=== PATIENT | female | born 1960 | race African-American/Black ===

== ENCOUNTER 2020-12-31 17:21 | Observation (INO) | payer OTHER ==
[2020-12-31] MEDS ORDERED: D50W 25 GM/50 ML SYRINGE IV ONE (17:43)
--- NOTE | 2020-12-31 19:05 | EDPHYS ---
Physician Documentation [facility] Name: Nedra Luis Age: 60 yrs Sex: Female : 1960 Arrival Date: 12/31/2020 Time: 17:30 Bed 3 Private MD: ED Physician Tristin Perera HPI: 12/31 18:28 This 60 yrs old Black Female presents to ER via EMS with complaints of Low Blood Sugar. ma2 18:28 Onset: The symptoms/episode began/occurred gradually, 3 hour(s) ago. Associated signs ma2 and symptoms: Pertinent negatives: anorexia, decreased urine output, diarrhea, hair loss, nausea. Current symptoms: In the emergency department the patient's symptoms are unchanged from the initial presentation. The patient has not experienced similar symptoms in the past. Patient is insulin-dependent diabetes, she is on insulin takes Humalog insulin and Tresiba long-acting insulin, she had an episode of confusion where her family called EMS at 2 PM and EMS arrived blood sugar was low to give her glucagon and recommended transfer to an ER, patient declined. After 2 hours patient had another episode of hypoglycemia where she became confused and EMS were recalled to the house and they found her blood sugar to be low as well. At this point patient is ANO x4 blood sugar is within normal limits she is back to normal. Historical: - Allergies: 18:49 Hydrocortisone; sv - PMHx: 17:38 Diabetes mellitus; sv 18:49 Hypertensive disorder; sv - Immunization history:: Client reports receiving the 1st dose of the Covid vaccine. - Social history:: Patient/guardian denies using alcohol, street drugs, The patient lives with family, Smoking status: Patient denies any tobacco usage or history of. - Family history:: not pertinent. ROS: 18:28 Constitutional: Negative for fever, chills, and weight loss. ma2 18:28 All other systems are negative. Exam: 18:28 Constitutional: This is a well developed, well nourished patient who is awake, alert, ma2 and in no acute distress. Head/Face: Normocephalic, atraumatic. Eyes: Pupils equal round and reactive to light, extra-ocular motions intact. Lids and lashes normal. Conjunctiva and sclera are non-icteric and not injected. Cornea within normal limits. Periorbital areas with no swelling, redness, or edema. ENT: Nares patent. No nasal discharge, no septal abnormalities noted. Tympanic membranes are normal and external auditory canals are clear. Oropharynx with no redness, swelling, or masses, exudates, or evidence of obstruction, uvula midline. Mucous membranes moist. Neck: Trachea midline, no thyromegaly or masses palpated, and no cervical lymphadenopathy. Supple, full range of motion without nuchal rigidity, or vertebral point tenderness. No Meningismus. Chest/axilla: Normal chest wall appearance and motion. Nontender with no deformity. No lesions are appreciated. Cardiovascular: Regular rate and rhythm with a normal S1 and S2. No gallops, murmurs, or rubs. Normal PMI, no JVD. No pulse deficits. Respiratory: Lungs have equal breath sounds bilaterally, clear to auscultation and percussion. No rales, rhonchi or wheezes noted. No increased work of breathing, no retractions or nasal flaring. Abdomen/GI: Soft, non-tender, with normal bowel sounds. No distension or tympany. No guarding or rebound. No evidence of tenderness throughout. Skin: Warm, dry with normal turgor. Normal color with no rashes, no lesions, and no evidence of cellulitis. MS/ Extremity: Pulses equal, no cyanosis. Neurovascular intact. Full, normal range of motion. Neuro: Awake and alert, GCS 15, oriented to person, place, time, and situation. Cranial nerves II-XII grossly intact. Motor strength 5/5 in all extremities. Sensory grossly intact. Cerebellar exam normal. Normal gait. Vital Signs: 17:35 BP 155 / 77; Pulse 61; Resp 16; Temp 98; Pulse Ox 100% ; Pain 0/10; sv 19:30 BP 141 / 78; Pulse 68; Resp 17; Pulse Ox 100% on R/A; em 22:52 BP 134 / 62; Pulse 70; Resp 16; Pulse Ox 100% on R/A; em 01/01 00:00 BP 112 / 69; Pulse 71; Resp 14; Pulse Ox 100% on R/A; Pain 0/10; em MDM: 12/31 18:28 Differential diagnosis: DKA, hyperglycemia, hypoglycemic episode. Data reviewed: vital ma2 signs, nurses notes. 19:03 Counseling: I had a detailed discussion with the patient and/or guardian regarding: the [facility] historical points, exam findings, and any diagnostic results supporting the discharge/admit diagnosis, the presence of at least one elevated blood pressure reading (>120/80) during this emergency department visit, the need for further work-up and treatment in the hospital. Response to treatment: the patient's symptoms have markedly improved after treatment. 19:04 Patient medically screened. [facility] 12/31 17:37 Order name: Basic Metabolic Panel [facility] 12/31 17:37 Order name: CBC with Diff [facility] 12/31 17:37 Order name: Hepatic Function [facility] 12/31 17:37 Order name: Lipase [facility] 12/31 18:56 Order name: Glucose, Ancillary Testing; Complete Time: 19:03 [facility] 12/31 19:04 Order name: glucometer results - FOR PT WITH NO ID 12/31 19:33 Order name: CBC Smear Scan [facility] 12/31 19:42 Order name: Glucose, Ancillary Testing [facility] 12/31 21:38 Order name: Glucose, Ancillary Testing [facility] 12/31 23:07 Order name: Glucose, Ancillary Testing [facility] 12/31 23:19 Order name: COVID-19 : Document "Date of Symptom Onset" if Symptomatic. em 12/31 23:40 Order name: CORONAVIRUS [facility] 01/01 00:55 Order name: SARS-COV-2 RT PCR [facility] 01/01 01:17 Order name: Glucose, Ancillary Testing [facility] 12/31 17:37 Order name: IV Saline Lock; Complete Time: 17:38 [facility] 12/31 17:37 Order name: Labs collected and sent; Complete Time: 17:38 [facility] 12/31 17:37 Order name: Blood Glucose Level; Complete Time: 17:38 [facility] 12/31 17:37 Order name: Diet Regular; Complete Time: 17:38 [facility] Administered Medications: No medications were administered Disposition Summary: 12/31/20 19:04 Hospitalization Ordered Hospitalization Status: Observation ma2 Provider: Hieu Hoffmann Location: Telemetry/MedSurg (observation) ma2 Condition: Stable ma2 Problem: new ma2 Symptoms: are unchanged ma2 Bed/Room Type: Standard [facility] Room Assignment: 206(12/31/20 22:58) cg Diagnosis - Other hypoglycemia ma2 Forms: - Medication Reconciliation Form de2 - SBAR form de2 Signatures: Dispatcher [employer] Lindsay Coburn RN RN Alyson Sparks RN RN cg Alzahri, Mohammad, MD MD [facility] Corrections: (The following items were deleted from the chart) 22:58 19:04 deKenisha
--- NOTE | 2020-12-31 19:05 | ER ---
Nurse's Notes [facility] Name: Nerda Luis Age: 60 yrs Sex: Female : 1960 Arrival Date: 12/31/2020 Time: 17:30 Bed 3 Private MD: Diagnosis: Other hypoglycemia Presentation: 12/31 17:35 Chief complaint: EMS states: 2nd call out for this pt for hypoglycemia. Initial call sv was BS reading LOW, glucagon given and she felt better. They got a refusal at that time. Next call out was for BS reading LOW, glucagon 1gm given, 22G R wrist started and D10 500 mls given as well. Pt stated she thinks she took too much of her Humalog insulin. Coronavirus screen: Client denies travel out of the [place] in the last 14 days. At this time, the client does not indicate any symptoms associated with coronavirus-19. Ebola Screen: No symptoms or risks identified at this time. Initial Sepsis Screen: Does the patient meet any 2 criteria? No. Patient's initial sepsis screen is negative. Does the patient have a suspected source of infection? No. Patient's initial sepsis screen is negative. Risk Assessment: Do you want to hurt yourself or someone else? Patient reports no desire to harm self or others. Onset of symptoms was December 31, 2020. 17:35 Method Of Arrival: EMS: [facility] sv 17:35 Acuity: EDEL 3 sv Triage Assessment: 17:35 General: Appears in no apparent distress. comfortable, well developed, Behavior is sv calm, cooperative, appropriate for age. Pain: Denies pain. Neuro: Level of Consciousness is awake, alert, obeys commands, Oriented to person, place, time, situation, Moves all extremities. Full function Speech is normal. Cardiovascular: Patient's skin is warm and dry. Pulses are palpable in right radial artery and left radial artery. Respiratory: Respiratory effort is even, unlabored, Respiratory pattern is regular, symmetrical. Derm: Skin is normal. Historical: - Allergies: 18:49 Hydrocortisone; sv - PMHx: 17:38 Diabetes mellitus; sv 18:49 Hypertensive disorder; sv - Immunization history:: Client reports receiving the 1st dose of the Covid vaccine. - Social history:: Patient/guardian denies using alcohol, street drugs, The patient lives with family, Smoking status: Patient denies any tobacco usage or history of. - Family history:: not pertinent. Screenin:38 Abuse screen: Denies threats or abuse. Denies injuries from another. Nutritional sv screening: No deficits noted. Tuberculosis screening: No symptoms or risk factors identified. Fall Risk None identified. Assessment: 18:25 Reassessment: Pt given food tray. Pt not very fond of the food. Pt's daughter stated sv that she would go get her something to eat. 19:30 General: Appears in no apparent distress. comfortable, Behavior is calm, cooperative, em appropriate for age. Pain: Denies pain. Neuro: Level of Consciousness is awake, alert, obeys commands, Oriented to person, place, time, situation, Appropriate for age. Cardiovascular: Capillary refill < 3 seconds Patient's skin is warm and dry. Respiratory: Airway is patent Respiratory effort is even, unlabored, Respiratory pattern is regular, symmetrical. GI: Patient currently denies nausea, vomiting. Derm: Skin is intact, is healthy with good turgor, Skin is pink, warm \T\ dry. Musculoskeletal: Capillary refill < 3 seconds, Range of motion: intact in all extremities. 19:35 Reassessment: juice and sandwich given, pt reports she is not really hungry, instructed em pt to eat food due to hypoglycemia. 21:30 Reassessment: Patient appears in no apparent distress at this time. Patient and/or em family updated on plan of care and expected duration. Pain level reassessed. Patient is alert, oriented x 3, equal unlabored respirations, skin warm/dry/pink. 23:00 Reassessment: Patient appears in no apparent distress at this time. Patient and/or em family updated on plan of care and expected duration. Pain level reassessed. Patient is alert, oriented x 3, equal unlabored respirations, skin warm/dry/pink. Vital Signs: 17:35 BP 155 / 77; Pulse 61; Resp 16; Temp 98; Pulse Ox 100% ; Pain 0/10; sv 19:30 BP 141 / 78; Pulse 68; Resp 17; Pulse Ox 100% on R/A; em 22:52 BP 134 / 62; Pulse 70; Resp 16; Pulse Ox 100% on R/A; em 01/01 00:00 BP 112 / 69; Pulse 71; Resp 14; Pulse Ox 100% on R/A; Pain 0/10; em ED Course: 12/31 17:30 Patient arrived in ED. iw 17:35 Lindsay Estevez RN is Primary Nurse. sv 17:36 Tristin Perera MD is Attending Physician. ma2 17:37 Triage completed. sv 17:38 Arm band placed on. sv 17:38 Patient has correct armband on for positive identification. Bed in low position. Call sv light in reach. court recording monitor on. Pulse ox on. NIBP on. Door closed. Warm blanket given. Head of bed elevated. 17:38 Maintain EMS IV. Dressing intact. Site clean \T\ dry. Gauge \T\ site: 22G R hand. sv 18:54 Lab(s) recollected, by me, sent to lab. [facility] 19:04 Hieu Hoffmann MD is Hospitalizing Provider. [facility] 19:05 Primary Nurse role handed off by iLndsay Estevez RN 19:05 Report given to Fili BRICENO and Jared BRICENO. 19:13 Jared Dodge RN is Primary Nurse. em 01/01 01:06 No provider procedures requiring assistance completed. Patient admitted, IV remains in em place. Administered Medications: No medications were administered Outcome: 12/31 19:04 Decision to Hospitalize by Provider. [facility] 01/01 01:12 Admitted to Med/surg accompanied by tech, via wheelchair, room 206, with chart, Report em called to KAITY Horner Condition: improved Instructed on the need for admit, Demonstrated understanding of instructions. 01:22 Patient left the ED. em Signatures: Lindsay Estevez RN RN Jared Dodge RN RN Kala Knight RN RN Blanca Johnson [facility] Tristin Perera MD MD [facility] Corrections: (The following items were deleted from the chart) 12/31 19:01 17:35 Chief complaint: EMS states: 2nd call out for this pt for hypoglycemia. Initial sv call was BS reading LOW, glucagon given and she felt better. They got a refusal at that time. Next call out was for BS reading LOW, glucagon 1gm given, 22G R wrist started and D10 500 mls given as well. sv
[2020-12-31 19:09] LABS: Hematocrit 39.4 % (36.0-45.0); MPV 9.6 fL (7.6-11.3); RBC Red Blood Cell Count 4.09 M/uL (3.86-4.86)
[2020-12-31 19:10] LABS: Absolute Lymphocytes (CBC) 0.9 K/uL (0.7-4.9); Basophils % 0.6 % (0-1.3); Lymphocytes % 8.2 % (15.3-44.8)
[2020-12-31 19:22] LABS: ALT/SGPT 31 U/L (12-78); AST/SGOT 26 U/L (15-37); Albumin 3.2 g/dL (3.4-5.0); Alkaline Phosphatase 100 U/L (45-117); BUN Blood Urea Nitrogen 20 mg/dL (7-18); Bicarbonate 19 mmol/L (21-32); Bilirubin Direct < 0.1 mg/dL (0-0.2); Bilirubin Total 0.2 mg/dL (0.2-1.0); Glucose Level 78 mg/dL (74-106); Lipase 37 U/L (73-393); Potassium 3.8 mmol/L (3.5-5.1); Protein, Total 7.6 g/dL (6.4-8.2); Sodium Level 145 mmol/L (136-145)
--- NOTE | 2020-12-31 19:31 | P.HP ---
Certification for Inpatient Patient admitted to: Observation With expected LOS: <2 Midnights Patient will require the following post-hospital care: None Practitioner: I am a practitioner with admitting privileges, knowledge of patient current condition, hospital course, and medical plan of care. Services: Services provided to patient in accordance with Admission requirements found in Title 42 Section 412.3 of the Code of Federal Regulations Patient History Date of Service: 12/31/20 Primary Care Provider: Lindsay Uribe Reason for admission: Hypoglycemia History of Present Illness: 60-year-old -[place] female with history of diabetes type 2, hypertension presents to the emergency department for hypoglycemia. Patient reports that she takes Tresiba 45 units daily as well as Humalog 10 units twice daily at home, patient accidentally gave herself 45 units of Humalog this afternoon, has been hypoglycemic twice already at home requiring EMS evaluation. Upon arrival to the emergency department patient's blood sugar was around 100, recheck around 82. Patient is tolerating diet at this time, ED provider persist admit under observation for hypoglycemia. - Past Medical/Surgical History Diabetic: Yes -: Diabetes mellitus type 2 -: Hypertension -: Left toe amputation Psychosocial/ Personal History: Unemployed, lives with boyfriend - Family History Brother -: Diabetes Sister -: Diabetes - Social History Smoking Status: Never smoker Alcohol use: No CD- Drugs: No Caffeine use: Yes Place of Residence: Home Review of Systems 10-point ROS is otherwise unremarkable General: Weakness, Malaise Physical Examination - Physical Exam General: Alert, In no apparent distress, Oriented x3 HEENT: Atraumatic, PERRLA, Mucous membr. moist/pink, EOMI, Sclerae nonicteric Neck: Supple, 2+ carotid pulse no bruit, No LAD, Without JVD or thyroid abnormality Respiratory: Clear to auscultation bilaterally, Normal air movement Cardiovascular: Regular rate/rhythm, Normal S1 S2 Gastrointestinal: Normal bowel sounds, No tenderness Musculoskeletal: No tenderness Integumentary: No rashes Neurological: Normal gait, Normal speech, Normal strength at 5/5 x4 extr, Normal tone, Normal affect Lymphatics: No axilla or inguinal lymphadenopathy - Studies Laboratory Data (last 24 hrs) 12/31/20 18:54: WBC 11.40 H, Hgb 12.7, Hct 39.4, Plt Count 231 12/31/20 18:54: Sodium 145, Potassium 3.8, BUN 20 H, Creatinine 0.86, Glucose 78, Total Bilirubin 0.2, AST 26, ALT 31, Alkaline Phosphatase 100, Lipase 37 L Assessment and Plan - Plan Assessment: Hypoglycemia secondary to accidental insulin overdose with underlying diabetes mellitus type 2 Hypertension Plan: Hypoglycemia secondary to accidental insulin overdose with underlying diabetes mellitus type 2: Continue with hourly Accu-Cheks over the course the next few hours to monitor blood glucose level closely, if blood sugar is stable will change to a [facility] Accu-Cheks. Patient tolerating diet at this time, likely discharge tomorrow morning if sugars remain stable. Hypertension: Continue medications, adjust as necessary DVT PPX: Lovenox Code status: Full Discharge Plan: Home Plan to discharge in: 24 Hours - Advance Directives Does patient have a Living Will: No Does patient have a Durable POA for Healthcare: No - Code Status/Comfort Care Code Status Assessed: Yes (Full code) Critical Care: No Time Spent Managing Pts Care (In Minutes): 55
[2020-12-31 19:33] LABS: Blood Morphology Comment NOT SEEN (NOT SEEN); Platelet Estimate ADEQ; White Blood Cell Scan OK (OK)
[2021-01-01] MEDS ORDERED: ACETAMINOPHEN 500 MG TAB PO PRN (01:19)
[2021-01-01] MEDS ORDERED: GLUCAGON 1 MG/VIAL IV PRN (01:19)
[2021-01-01] MEDS ORDERED: D50W 25 GM/50 ML SYRINGE IV PRN (01:19)
[2021-01-01] MEDS ORDERED: ONDANSETRON 4 MG/2 ML VIAL IV PRN (01:19)
[2021-01-01 01:41] VITALS: O2SAT 100
[2021-01-01 02:12] VITALS: BMI 31.2
[2021-01-01] MEDS: INSULIN -REGULAR HUMAN 50 UNIT/0.5 ML ML SQ SCH ×3 (03:00→12:18)
[2021-01-01 06:05] LABS: Basophils % 0.4 % (0-1.3); Hematocrit 32.9 % (36.0-45.0); Lymphocytes % 13.8 % (15.3-44.8); MPV 10.4 fL (7.6-11.3); RBC Red Blood Cell Count 3.41 M/uL (3.86-4.86)
[2021-01-01 06:16] LABS: Bilirubin Total 0.2 mg/dL (0.2-1.0); Magnesium 2.4 mg/dL (1.8-2.4); Protein, Total 6.6 g/dL (6.4-8.2)
[2021-01-01] MEDS ORDERED: ENOXAPARIN 40 MG/0.4 ML SQ SCH (09:00)
[2021-01-01 12:15] VITALS: BP 140/66; TEMP 97.6
--- NOTE | 2021-01-01 19:30 | P.DS ---
Admission Date: 12/31/20 Discharge Date: 01/01/21 Primary Care Provider: Lindsay Uribe Disposition: ROUTINE DISCHARGE Discharge Condition: GOOD Reason for Admission: Hypoglycemia Procedures: Problem List: Hypoglycemia secondary to accidental insulin overdose with underlying diabetes mellitus type 2 DM2, insulin-dependent Hypertension Brief History of Present Illness: 60-year-old -[place] female with history of diabetes type 2, hypertension presents to the emergency department for hypoglycemia. Patient reports that she takes Tresiba 45 units daily as well as Humalog 10 units twice daily at home, patient accidentally gave herself 45 units of Humalog this afternoon, has been hypoglycemic twice already at home requiring EMS evaluation. Upon arrival to the emergency department patient's blood sugar was around 100, recheck around 82. Patient is tolerating diet at this time, ED provider persist admit under observation for hypoglycemia. Hospital Course: Patient was monitored overnight, she did not require any dextrose / medications to help maintain adequate glucose blood levels. The following morning - she was feeling back to her baseline, tolerating breakfast, glc >100 consistently and without intervention. She was discharged home to resume her insulin regimen. Vital Signs/Physical Exam: Temp Pulse Resp BP Pulse Ox 97.6 F 85 18 140/66 99 01/01/21 12:00 01/01/21 12:00 01/01/21 12:00 01/01/21 12:00 01/01/21 12:00 General: Alert, In no apparent distress, Oriented x3 HEENT: Mucous membr. moist/pink, Sclerae nonicteric Respiratory: Clear to auscultation bilaterally, Normal air movement Cardiovascular: No edema, Regular rate/rhythm, Normal S1 S2 Gastrointestinal: Soft and benign, Non-distended, No tenderness Integumentary: No erythema Neurological: Normal speech, Normal affect Laboratory Data at Discharge: WBC 7.10 K/uL (4.3-10.9) D 01/01/21 05:25 Hgb 10.8 g/dL (12.0-15.0) L 01/01/21 05:25 Hct 32.9 % (36.0-45.0) L D 01/01/21 05:25 Plt Count 194 K/uL (152-406) 01/01/21 05:25 Sodium 144 mmol/L (136-145) 01/01/21 05:25 Potassium 4.0 mmol/L (3.5-5.1) 01/01/21 05:25 BUN 24 mg/dL (7-18) H 01/01/21 05:25 Creatinine 0.87 mg/dL (0.55-1.3) 01/01/21 05:25 Glucose 186 mg/dL (74-106) H 01/01/21 05:25 Magnesium 2.4 mg/dL (1.8-2.4) 01/01/21 05:25 Total Bilirubin 0.2 mg/dL (0.2-1.0) 01/01/21 05:25 AST 24 U/L (15-37) 01/01/21 05:25 ALT 29 U/L (12-78) 01/01/21 05:25 Alkaline Phosphatase 91 U/L (45-117) 01/01/21 05:25 Lipase 37 U/L (73-393) L 12/31/20 18:54 Physician Discharge Instructions: PROBLEM: Hypoglycemia GOAL: Clear understanding of disease process INSTRUCTIONS: Diet: diabetic Activity: As tolerated You were found to have low glucose due to accidentally taking higher dose of your humalog. You were monitored overnight and your glucose remained stable wi thout the need for any further medication/intervention. You are stable for discharge home. Recommend restarting your insulin tomorrow. No changes in your medications. Follow up with your PCP in 3-5 days. Diet: ADA Activity: Ad domenica Followup: AIDA PARRA [Primary Care Provider] - Time spent managing pt's care (in minutes): 40
== END 2021-01-01 13:28 | disposition home or self-care (01) ==
LOC: ER 17:21 → ERHOLD 20:16 → 2ND 01-01 01:03
PROVIDERS: ADMIT Hospitalist; ATTEND Hospitalist
DX: T38.3X1A Poisoning by insulin and oral hypoglycemic [antidiabetic] drugs, accidental (unintentional), initial encounter (principal); E11.649 Type 2 diabetes mellitus with hypoglycemia without coma; Y92.009 Unspecified place in unspecified non-institutional (private) residence as the place of occurrence of the external cause; Z79.4 Long term (current) use of insulin; I10 Essential (primary) hypertension; Z20.822 Contact with and (suspected) exposure to COVID-19; Z89.422 Acquired absence of other left toe(s); Z88.8 Allergy status to other drugs, medicaments and biological substances; Z83.3 Family history of diabetes mellitus
CPT/HCPCS: 85025 ×2; 80048; 36415; 83735; 82947 ×9; 80076; 83690; 80053; 99285; U0003; J1650; G0378

== ENCOUNTER 2021-04-24 10:10 | Emergency (ER) | payer OTHER ==
[2021-04-24] MEDS ORDERED: D5 0.45 NS 1,000 ML IV ONE (10:26)
[2021-04-24] MEDS ORDERED: D50W 50 ML IV ONE (10:26)
[2021-04-24 10:57] LABS: Absolute Lymphocytes (CBC) 1.1 K/uL (0.7-4.9); Basophils % 0.4 % (0-1.3); Hematocrit 38.2 % (36.0-45.0); Lymphocytes % 16.2 % (15.3-44.8); MPV 10.1 fL (7.6-11.3); RBC Red Blood Cell Count 3.91 M/uL (3.86-4.86)
[2021-04-24 11:09] LABS: Albumin 3.1 g/dL (3.4-5.0); Bilirubin Total 0.3 mg/dL (0.2-1.0); Potassium 4.1 mmol/L (3.5-5.1); Protein, Total 7.3 g/dL (6.4-8.2)
--- NOTE | 2021-04-24 11:44 | ER ---
Nurse's Notes [facility] Name: Nedra Luis Age: 61 yrs Sex: Female : 1960 Arrival Date: 04/24/2021 Time: 10:11 Bed 5 Private MD: Diagnosis: Adverse effect of insulin and oral hypoglycemic [antidiabetic] drugs;Drug-induced hypoglycemia without coma Presentation: 04/24 10:31 Chief complaint: Patient states: Due to vision issues, she accidentally took 20 units ll1 of her fast acting insulin just [employer]. Sugar was 138 before she left her house. Drank some OJ since. Coronavirus screen: Vaccine status: Patient reports receiving the 1st dose of the Covid vaccine. Client denies travel out of the [place] in the last 14 days. At this time, the client does not indicate any symptoms associated with coronavirus-19. Ebola Screen: Patient denies travel to an Ebola-affected area in the 21 days before illness onset. Initial Sepsis Screen: Does the patient meet any 2 criteria? No. Patient's initial sepsis screen is negative. Does the patient have a suspected source of infection? No. Patient's initial sepsis screen is negative. Risk Assessment: Do you want to hurt yourself or someone else? Patient reports no desire to harm self or others. Onset of symptoms was April 24, 2021. 10:31 Method Of Arrival: Ambulatory ll1 10:31 Acuity: DEEL 2 ll1 Historical: - Allergies: 10:16 Hydrocortisone; ll1 10:33 Hydrocodone-Acetaminophen; ll1 - PMHx: 10:16 diabetes mellitus; Hypertensive disorder; ll1 - PSHx: 10:33 Unable to Obtain; ll1 - Immunization history:: Adult Immunizations up to date, Client reports receiving the 1st dose of the Covid vaccine. - Social history:: Smoking status: Patient denies any tobacco usage or history of. - Family history:: not pertinent. Screenin:16 Abuse screen: Denies threats or abuse. Nutritional screening: No deficits noted. ll1 Tuberculosis screening: No symptoms or risk factors identified. 10:20 Fall Risk IV access (20 points). Total Radford Fall Scale indicates No Risk (0-24 pts). ll1 Assessment: 10:34 General: Appears in no apparent distress. Behavior is calm, cooperative, appropriate ll1 for age. Pain: Denies pain. Neuro: No deficits noted. Cardiovascular: No deficits noted. Respiratory: No deficits noted. GI: No deficits noted. 11:03 Reassessment: No changes from previously documented assessment. Patient and/or family ll1 updated on plan of care and expected duration. Pain level reassessed. Patient is alert, oriented x 3, equal unlabored respirations, skin warm/dry/pink. Patient states feeling better. eating breakfast food elvira. 12:00 Reassessment: No changes from previously documented assessment. Patient and/or family ll1 updated on plan of care and expected duration. Pain level reassessed. Patient is alert, oriented x 3, equal unlabored respirations, skin warm/dry/pink. 13:00 Reassessment: No changes from previously documented assessment. Patient and/or family ll1 updated on plan of care and expected duration. Pain level reassessed. Patient is alert, oriented x 3, equal unlabored respirations, skin warm/dry/pink. 14:00 Reassessment: No changes from previously documented assessment. Patient and/or family ll1 updated on plan of care and expected duration. Pain level reassessed. Patient is alert, oriented x 3, equal unlabored respirations, skin warm/dry/pink. 14:52 Reassessment: No changes from previously documented assessment. Patient and/or family ll1 updated on plan of care and expected duration. Pain level reassessed. Patient is alert, oriented x 3, equal unlabored respirations, skin warm/dry/pink. Patient states feeling better. Vital Signs: 10:31 BP 152 / 72; Pulse 78; Resp 17; Temp 98.2; Pulse Ox 100% ; Weight 102.51 kg; Height 5 ll1 ft. 11 in. (180.34 cm); Pain 0/10; 12:02 BP 135 / 72; Pulse 78; Resp 16; Pulse Ox 100% ; ll1 14:38 BP 153 / 85; Pulse 79; Resp 16; Pulse Ox 100% ; ll1 14:53 BP 133 / 77; Pulse 78; Resp 15; Pulse Ox 100% on R/A; Pain 0/10; ll1 10:31 Body Mass Index 31.52 (102.51 kg, 180.34 cm) 1 ED Course: 10:11 Patient arrived in ED. as 10:16 Asa Casillas, RN is Primary Nurse. ll1 10:16 Arm band placed on Patient placed in an exam room, on a stretcher. ll1 10:16 Patient has correct armband on for positive identification. Bed in low position. Call ll1 light in reach. Side rails up X2. medication manager on. Pulse ox on. NIBP on. 10:18 Tommy Kidd MD is Attending Physician. [facility] 10:33 Triage completed. ll1 10:33 Inserted saline lock: 22 gauge in right hand, using aseptic technique. Blood collected. ll1 10:44 Missed attempt(s): 22 gauge in left antecubital area. Bleeding controlled, band aid dh3 applied, catheter tip intact. 10:48 Comprehensive Metabolic Panel Sent. 3 10:48 CBC with Diff Sent. 3 14:53 No provider procedures requiring assistance completed. IV discontinued, intact, ll1 bleeding controlled, No redness/swelling at site. Pressure dressing applied. Administered Medications: 10:38 Drug: D50W 25 ml Route: IVP; Site: right hand; ll1 12:01 Follow up: Response: No adverse reaction ll1 10:39 Drug: D5-1/2 NS 1000 ml Route: IV; Rate: 150 ml/hr; Site: right hand; ll1 14:54 Follow up: Response: No adverse reaction; IV Status: Order to discontinue infusion; IV ll1 Intake: 600ml 12:01 Drug: D50W 50 ml Route: IVP; Site: right hand; ll1 14:54 Follow up: Response: No adverse reaction ll1 13:32 Drug: D50W 50 ml Route: IVP; Site: right hand; ll1 14:54 Follow up: Response: No adverse reaction ll1 Intake: 14:54 IV: 600ml; Total: 600ml. ll1 Outcome: 11:43 Discharge ordered by . sindhu 14:42 Discharge ordered by . sindhu 14:53 Discharged to home ambulatory. ll1 14:53 Condition: stable 14:53 Discharge instructions given to patient, Instructed on discharge instructions, follow up and referral plans. Demonstrated understanding of instructions, follow-up care. 14:55 Patient left the ED. ll1 Signatures: Tommy Kidd MD MD cha Martinez, Amelia as Herrera, Deanna formerly [facility] Asa Casillas RN RN ll1
--- NOTE | 2021-04-24 11:44 | EDPHYS ---
Physician Documentation [facility] Name: Nedra Luis Age: 61 yrs Sex: Female : 1960 Arrival Date: 04/24/2021 Time: 10:11 Bed 5 Private MD: ED Physician Tommy Kidd HPI: 04/24 10:26 This 61 yrs old Black Female presents to ER via Unassigned with complaints of insulin sindhu overdose. 10:26 took double fast acting insulin. Onset: The symptoms/episode began/occurred just prior sindhu to arrival. Severity of symptoms: At their worst the symptoms were moderate in the emergency department the symptoms are unchanged. The patient has not experienced similar symptoms in the past, The patient has experienced similar episodes in the past, a few times. Historical: - Allergies: 10:16 Hydrocortisone; ll1 10:33 Hydrocodone-Acetaminophen; ll1 - PMHx: 10:16 diabetes mellitus; Hypertensive disorder; ll1 - PSHx: 10:33 Unable to Obtain; ll1 - Immunization history:: Adult Immunizations up to date, Client reports receiving the 1st dose of the Covid vaccine. - Social history:: Smoking status: Patient denies any tobacco usage or history of. - Family history:: not pertinent. ROS: 10:26 Constitutional: Negative for fever, chills, and weight loss, Eyes: Negative for injury, sindhu pain, redness, and discharge, ENT: Negative for injury, pain, and discharge, Neck: Negative for injury, pain, and swelling, Cardiovascular: Negative for chest pain, palpitations, and edema, Respiratory: Negative for shortness of breath, cough, wheezing, and pleuritic chest pain, Abdomen/GI: Negative for abdominal pain, nausea, vomiting, diarrhea, and constipation, Back: Negative for injury and pain, : Negative for injury, bleeding, discharge, and swelling, MS/Extremity: Negative for injury and deformity, Skin: Negative for injury, rash, and discoloration, Neuro: Negative for headache, weakness, numbness, tingling, and seizure, Psych: Negative for depression, anxiety, suicide ideation, homicidal ideation, and hallucinations, Allergy/Immunology: Negative for hives, rash, and allergies, Endocrine: Negative for neck swelling, polydipsia, polyuria, polyphagia, and marked weight changes, Hematologic/Lymphatic: Negative for swollen nodes, abnormal bleeding, and unusual bruising. Exam: 10:26 Constitutional: This is a well developed, well nourished patient who is awake, alert, sindhu and in no acute distress. Head/Face: Normocephalic, atraumatic. Eyes: Pupils equal round and reactive to light, extra-ocular motions intact. Lids and lashes normal. Conjunctiva and sclera are non-icteric and not injected. Cornea within normal limits. Periorbital areas with no swelling, redness, or edema. ENT: Nares patent. No nasal discharge, no septal abnormalities noted. Tympanic membranes are normal and external auditory canals are clear. Oropharynx with no redness, swelling, or masses, exudates, or evidence of obstruction, uvula midline. Mucous membranes moist. Neck: Trachea midline, no thyromegaly or masses palpated, and no cervical lymphadenopathy. Supple, full range of motion without nuchal rigidity, or vertebral point tenderness. No Meningismus. Chest/axilla: Normal chest wall appearance and motion. Nontender with no deformity. No lesions are appreciated. Cardiovascular: Regular rate and rhythm with a normal S1 and S2. No gallops, murmurs, or rubs. Normal PMI, no JVD. No pulse deficits. Respiratory: Lungs have equal breath sounds bilaterally, clear to auscultation and percussion. No rales, rhonchi or wheezes noted. No increased work of breathing, no retractions or nasal flaring. Abdomen/GI: Soft, non-tender, with normal bowel sounds. No distension or tympany. No guarding or rebound. No evidence of tenderness throughout. Back: No spinal tenderness. No costovertebral tenderness. Full range of motion. Female : Normal external genitalia. Skin: Warm, dry with normal turgor. Normal color with no rashes, no lesions, and no evidence of cellulitis. MS/ Extremity: Pulses equal, no cyanosis. Neurovascular intact. Full, normal range of motion. Neuro: Awake and alert, GCS 15, oriented to person, place, time, and situation. Cranial nerves II-XII grossly intact. Motor strength 5/5 in all extremities. Sensory grossly intact. Cerebellar exam normal. Normal gait. Psych: Awake, alert, with orientation to person, place and time. Behavior, mood, and affect are within normal limits. Vital Signs: 10:31 BP 152 / 72; Pulse 78; Resp 17; Temp 98.2; Pulse Ox 100% ; Weight 102.51 kg; Height 5 ll1 ft. 11 in. (180.34 cm); Pain 0/10; 12:02 BP 135 / 72; Pulse 78; Resp 16; Pulse Ox 100% ; ll1 14:38 BP 153 / 85; Pulse 79; Resp 16; Pulse Ox 100% ; ll1 14:53 BP 133 / 77; Pulse 78; Resp 15; Pulse Ox 100% on R/A; Pain 0/10; ll1 10:31 Body Mass Index 31.52 (102.51 kg, 180.34 cm) ll1 MDM: 10:20 Patient medically screened. [facility] 10:28 Data reviewed: vital signs, nurses notes, lab test result(s), CBC, electrolytes. Data [facility] interpreted: Pulse oximetry: on room air is 96 %. Test interpretation: by ED physician or midlevel provider:. Counseling: I had a detailed discussion with the patient and/or guardian regarding: the historical points, exam findings, and any diagnostic results supporting the discharge/admit diagnosis, lab results, radiology results. 04/24 10:25 Order name: CBC with Diff; Complete Time: 11:07 [facility] 04/24 10:25 Order name: Comprehensive Metabolic Panel; Complete Time: 11:26 [facility] 04/24 10:36 Order name: Glucose, Ancillary Testing; Complete Time: 11:07 [facility] 04/24 11:59 Order name: Glucose, Ancillary Testing; Complete Time: 14:31 [facility] 04/24 13:30 Order name: Glucose, Ancillary Testing; Complete Time: 14:31 [facility] 04/24 14:48 Order name: Glucose, Ancillary Testing [facility] 04/24 10:25 Order name: Diet Regular; Complete Time: 10:26 [facility] 04/24 11:33 Order name: PO challenge: juice; Complete Time: 11:53 [facility] 04/24 11:43 Order name: Blood Glucose Level; Complete Time: 11:53 [facility] 04/24 12:50 Order name: Diet Regular: diet lunch; Complete Time: 12:50 [facility] 04/24 13:22 Order name: PO challenge: coke; Complete Time: 13:32 [facility] 04/24 14:32 Order name: Blood Glucose Level; Complete Time: 14:54 sindhu Administered Medications: 10:38 Drug: D50W 25 ml Route: IVP; Site: right hand; ll1 12:01 Follow up: Response: No adverse reaction ll1 10:39 Drug: D5-1/2 NS 1000 ml Route: IV; Rate: 150 ml/hr; Site: right hand; ll1 14:54 Follow up: Response: No adverse reaction; IV Status: Order to discontinue infusion; IV ll1 Intake: 600ml 12:01 Drug: D50W 50 ml Route: IVP; Site: right hand; ll1 14:54 Follow up: Response: No adverse reaction ll1 13:32 Drug: D50W 50 ml Route: IVP; Site: right hand; ll1 14:54 Follow up: Response: No adverse reaction ll1 Disposition Summary: 04/24/21 14:42 Discharge Ordered Location: Home(04/24/21 14:42) sindhu Problem: new(04/24/21 14:42) sindhu Symptoms: have improved(04/24/21 14:42) sindhu Condition: Stable(04/24/21 14:42) sindhu Diagnosis - Adverse effect of insulin and oral hypoglycemic [antidiabetic] drugs(04/24/21 14:42)sindhu - Drug-induced hypoglycemia without coma(04/24/21 14:42) sindhu Followup: sindhu - With: Private Physician - When: 2 - 3 days - Reason: Recheck today's complaints, Continuance of care, Re-evaluation by your physician Discharge Instructions: - Discharge Summary Sheet sindhu - Hypoglycemia sindhu - Hypoglycemia, [id number] sindhu - Type 2 Diabetes Mellitus, Self Care, Adult sindhu Forms: - Medication Reconciliation Form sindhu - Thank You Letter sindhu - Antibiotic Education sindhu - Prescription Opioid Use sindhu Signatures: Dispatcher [employer] EDTommy Singh MD MD cha Lewis, Lynsay, RN RN ll1 Corrections: (The following items were deleted from the chart) 13:23 11:43 Home sindhu sindhu 13:23 11:43 new sindhu sindhu 13:23 11:43 have improved sindhu sindhu 13:23 11:43 Stable sindhu sindhu 13:23 11:43 Adverse effect of insulin and oral hypoglycemic [antidiabetic] drugs sindhu sindhu 13:23 11:43 Drug-induced hypoglycemia without coma sindhu sindhu
[2021-04-24] MEDS ORDERED: D50W 25 GM/50 ML SYRINGE IV ONE ×2 (11:55→13:22)
[2021-04-24 15:39] VITALS: O2SAT 100
[2021-04-24 15:41] VITALS: TEMP 98.2
[2021-04-24 15:46] VITALS: BP 133/77
== END 2021-04-24 14:55 | disposition home or self-care (01) ==
LOC: ER 10:10
DX: E10.649 Type 1 diabetes mellitus with hypoglycemia without coma (principal); T38.3X5A Adverse effect of insulin and oral hypoglycemic [antidiabetic] drugs, initial encounter; I10 Essential (primary) hypertension; Z79.4 Long term (current) use of insulin; Z88.5 Allergy status to narcotic agent; Z88.8 Allergy status to other drugs, medicaments and biological substances
CPT/HCPCS: 96361; 85025; 36415; 82947 ×4; 80053; 96374; 99284; J7799

== ENCOUNTER → 2021-05-20 | Day surgery (SDC) | payer OTHER ==
--- NOTE | 2021-05-20 13:29 | RAD REPORT ---
EXAM DESCRIPTION: US - Breast Core BX w/US Guidance - 05/20/2021 10:51 am CLINICAL HISTORY: N63.11, N63.12 COMPARISON: Breast ultrasound February 16, diagnostic mammogram February 16 TECHNIQUE: The patient presents for ultrasound-guided biopsy of the 2 previously detailed masses in the right breast. A 12 millimeter oval hypoechoic mass was detailed in the 12 o'clock right breast wi th a 5-6 mm ocal abnormality in the 3 o'clock right breast. The ultrasound-guided core biopsy procedure, risks and alternatives were discussed with the patient i n detail. After answering all questions, both oral and written consent were obtained. Time out proced ure was performed. The patient had no contraindicated allergy or medication history. Preliminary imaging identified the small mass in the 3 o'clock right breast. In the 12 o'clock left b reast an oval hypoechoic mass was localized measuring 7 mm in maximum dimension. This mass has simila r shape and sonographic characteristics to the mass in question. Depth from the skin surface was the same. This mass measures measurably smaller than the 12 millimeter finding detailed in February. Sca nning the upper right breast and not identify a matching 12 millimeter size lesion. It was elected not to perform biopsy of the mass in the 12 o'clock position due to the decreased size from earlier imaging. This finding can be monitored with sonographic re-evaluation in 6 months. Biopsy of the irregular 5 mm mass in the right breast was performed. The right breast was prepped and draped in the usual sterile fashion. From a medial approach, skin and deeper tissues were anesthetiz ed with 1% lidocaine. Under direct sonographic visualization a 14 gauge vacuum assisted core biopsy n eedle was advanced and placed at the margin of the mass. There were a total of 3 core biopsies obtain ed under direct sonographic guidance. The mass was significantly distorted following the initial biop sy. At the conclusion of the procedure a localization clip was placed under sonographic guidance. Post biopsy imaging showed no hematoma or measurable bleeding within the breast. Hemostasis was obtai raffaele at the skin site with a sterile bandage placed. Post procedure care and precaution instructions were given to the patient. IMPRESSION: 1. Ultrasound-guided core biopsy was performed of the 3 o'clock right breast mass. All o btained material was given to pathology for histologic assessment. 2. Post biopsy localization clip was placed under ultrasound guidance. 3. The mass in the 12 o'clock right breast detailed on the February imaging measured 12 mm. On today 's study the corresponding mass was identified but only measured 7 mm. No other mass was seen in this region. It was elected not to perform the biopsy given the reduction in size and generally benign ch aracteristics of this smooth oval mass. Recommendation would be to undergo right breast sonography in 6 months to monitor this finding.
== END ==
LOC: DS 10:00
PROVIDERS: ATTEND Surgery
DX: N63.11 Unspecified lump in the right breast, upper outer quadrant (principal); N63.12 Unspecified lump in the right breast, upper inner quadrant
CPT/HCPCS: 19083; 88305

== ENCOUNTER 2021-11-15 13:29 | Inpatient (IN) | payer OTHER ==
--- NOTE | 2021-11-15 15:18 | RAD REPORT ---
EXAM DESCRIPTION: RAD - Foot Left 2 View - 11/15/2021 3:08 pm CLINICAL HISTORY: open wound COMPARISON: FOOT W OBLIQUES dated 03/05/2010 FINDINGS: Previous second toe amputation is present. Mild soft tissue swelling is seen involving the forefoot. Tiny calcaneal spurs. No radiographic finding to indicate osteomyelitis.
--- NOTE | 2021-11-15 15:19 | RAD REPORT ---
EXAM DESCRIPTION: RAD - Foot Right 2 View - 11/15/2021 3:08 pm CLINICAL HISTORY: open wound COMPARISON: FOOT W OBLIQUES dated 03/05/2010 FINDINGS: Significant soft tissue swelling is seen affecting the great toe. Bony destructive changes and fragmentation noted involving the distal aspect of the proximal phalanx of the great toe suspici ous for osteomyelitis. Prominent calcaneal spurs.
[2021-11-15 15:42] LABS: Absolute Lymphocytes (CBC) 1.1 K/uL (0.7-4.9); Hematocrit 32.2 % (36.0-45.0); Lymphocytes % 13.1 % (15.3-44.8); MCV 96.1 fL (80-100); MPV 8.6 fL (7.6-11.3); RBC Red Blood Cell Count 3.35 M/uL (3.86-4.86)
[2021-11-15 15:46] LABS: Protime INR 1.07
[2021-11-15 15:51] LABS: Albumin 2.6 g/dL (3.4-5.0); Potassium 3.8 mmol/L (3.5-5.1)
[2021-11-15 15:55] LABS: Bilirubin Total 0.2 mg/dL (0.2-1.0); Protein, Total 7.8 g/dL (6.4-8.2)
[2021-11-15] MEDS ORDERED: Levofloxacin 750mg IV 750 MG/150 ML BAG IV ONE (16:22)
[2021-11-15] MEDS ORDERED: VANCOMYCIN 1 GM/VIAL ONE (16:22)
[2021-11-15] MEDS ORDERED: NA CHLORIDE 0.9% 250 ML ONE (16:22)
--- NOTE | 2021-11-15 16:50 | EDPHYS ---
Physician Documentation [facility] Name: Nedra Luis Age: 61 yrs Sex: Female : 1960 Arrival Date: 11/15/2021 Time: 13:31 Bed 19 Private MD: ED Physician Cale Hoffmann HPI: 11/15 14:30 This 61 yrs old Black Female presents to ER via Ambulatory with complaints of Toe cp Infection. 14:30 The patient presents with swelling, infection of right great toe. cp 14:30 Onset: The symptoms/episode began/occurred 2 week(s) ago. Associated signs and cp symptoms: Pertinent negatives: fever, vomiting. 14:30 Patient reports she was referred to ED by pharmacy scheduler for infected right great toe. cp Historical: - Allergies: 13:53 Hydrocodone-Acetaminophen; ap3 13:53 Hydrocortisone; ap3 - Home Meds: 13:53 Tresiba FlexTouch U-100 subcutaneous [Active]; ap3 - PMHx: 13:53 diabetes mellitus; Hypertensive disorder; ap3 - Immunization history:: Client reports receiving the 2nd dose of the Covid vaccine. - Social history:: Smoking status: Patient denies any tobacco usage or history of. ROS: 14:35 Constitutional: Negative for body aches, chills, fever, poor PO intake. cp 14:35 Eyes: Negative for injury, pain, redness, and discharge. cp 14:35 Cardiovascular: Negative for chest pain, palpitations. 14:35 Respiratory: Negative for cough, shortness of breath, wheezing. 14:35 Abdomen/GI: Negative for abdominal pain, nausea, vomiting, and diarrhea. 14:35 Skin: Positive for cellulitis, of the right first toe. 14:35 Neuro: Negative for altered mental status, headache, weakness. 14:35 All other systems are negative. Exam: 14:40 Constitutional: The patient appears in no acute distress, alert, awake, cp non-diaphoretic, non-toxic, well developed, well nourished. 14:40 Head/Face: Normocephalic, atraumatic. cp 14:40 Eyes: Periorbital structures: appear normal, Conjunctiva: normal, no exudate, no injection, Sclera: no appreciated abnormality, Lids and lashes: appear normal, bilaterally. 14:40 ENT: External ear(s): are unremarkable, Nose: is normal, Mouth: Lips: moist, Oral mucosa: moist, Posterior pharynx: Airway: no evidence of obstruction, patent. 14:40 Neck: ROM/movement: is normal, is supple, without pain, no range of motions limitations, no nuchal rigidity. 14:40 Chest/axilla: Inspection: normal, Palpation: is normal, no crepitus, no tenderness. 14:40 Cardiovascular: Rate: normal, Rhythm: regular, Pulses: Pulses are 2+ in right dorsalis pedis artery and left dorsalis pedis artery. 14:40 Respiratory: the patient does not display signs of respiratory distress, Respirations: normal, no use of accessory muscles, no retractions, labored breathing, is not present, Breath sounds: are clear throughout, no decreased breath sounds, no stridor, no wheezing. 14:40 Abdomen/GI: Inspection: abdomen appears normal, Palpation: abdomen is soft and non-tender, in all quadrants. 14:40 Back: pain, is absent, ROM is normal. 14:40 Skin: cellulitis, that is severe, on the right first toe, superficial wounds noted with scant drainage, chronic wound noted to plantar surface of left foot with minimal erythema and scant drainage. 14:40 Neuro: Orientation: to person, place \\T\\ time. Mentation: is normal, Sensation: numbness, that is moderate, of the right foot and left foot. 14:45 ECG was reviewed by the Attending Physician. cp Vital Signs: 13:51 BP 125 / 61; Pulse 80; Resp 17; Temp 97.9; Pulse Ox 95% ; Weight 100.7 kg; Height 5 ft. ap3 11 in. (180.34 cm); 16:00 BP 131 / 73; Pulse 74; Resp 20; Pulse Ox 100% on R/A; ww 19:18 BP 134 / 74; Pulse 72; Resp 18; Pulse Ox 100% on R/A; lg3 13:51 Body Mass Index 30.96 (100.70 kg, 180.34 cm) ap3 MDM: 13:56 Patient medically screened. cp 16:30 Physician consultation: Shahab Kendrick MD was contacted at 16:30, regarding admission, cp to the medical/surgical unit. patient's condition. 16:45 Data reviewed: vital signs, nurses notes, lab test result(s), EKG, radiologic studies, cp plain films, ultrasound, and as a result, I will admit patient. 16:45 Test interpretation: by ED physician or midlevel provider: ECG, plain radiologic cp studies. Counseling: I had a detailed discussion with the patient and/or guardian regarding: the historical points, exam findings, and any diagnostic results supporting the discharge/admit diagnosis, lab results, radiology results, the need for further work-up and treatment in the hospital. 11/15 14:26 Order name: Wound Culture 11/15 14:26 Order name: Blood Culture Adult (2) 11/15 14:26 Order name: CBC with Diff; Complete Time: 16:05 11/15 16:05 Interpretation: Normal except: RBC 3.35; HGB 10.1; HCT 32.2; MCHC 31.4; HEMA% 81.3; LYM% cp 13.1. 11/15 14:26 Order name: CMP; Complete Time: 16:05 11/15 16:05 Interpretation: Normal except: CL 116; CO2 19; GLUC 213; ALB 2.6; GFR 50; GLOB 5.2; A/G cp 0.5. 11/15 14:26 Order name: Lactate; Complete Time: 16:05 cp 11/15 14:26 Order name: Protime (+inr); Complete Time: 16:05 cp 11/15 14:26 Order name: Ptt, Activated; Complete Time: 16:05 11/15 14:26 Order name: Urine Culture 11/15 14:26 Order name: Urine Microscopic Only 11/15 14:26 Order name: ESR; Complete Time: 16:05 cp 11/15 14:26 Order name: CRP; Complete Time: 16:05 cp 11/15 17:25 Order name: COVID-19 (Coronavirus) Document "Date of Onset" if Symptomatic ww 11/15 17:26 Order name: COVID-19 SARS RT PCR (Document "Date of Onset" if Symptomatic) bd 11/15 17:58 Order name: COVID 19 CPL EDMS 11/15 14:26 Order name: Accucheck; Complete Time: 15:33 cp 11/15 14:26 Order name: Cardiac monitoring; Complete Time: 14:54 cp 11/15 14:26 Order name: EKG - Nurse/Tech; Complete Time: 14:54 cp 11/15 14:26 Order name: IV Saline Lock - Large Bore; Complete Time: 15:29 cp 11/15 14:26 Order name: Labs collected and sent; Complete Time: 15:29 cp 11/15 14:26 Order name: O2 Per Protocol; Complete Time: 14:55 cp 11/15 14:26 Order name: O2 Sat Monitoring; Complete Time: 14:55 cp 11/15 14:26 Order name: Urine Dipstick-Ancillary (obtain specimen); Complete Time: 18:39 cp 11/15 14:26 Order name: XRAY Foot RIGHT 2 View; Complete Time: 15:35 cp 11/15 15:36 Interpretation: Report reviewed. cp 11/15 14:26 Order name: XRAY Foot LEFT 2 View; Complete Time: 15:35 cp 11/15 15:36 Interpretation: Report reviewed. 11/15 16:10 Order name: US Extremity Venous W Compression Cisco cp 11/15 16:27 Order name: Wound dressing; Complete Time: 17:37 11/15 19:13 Order name: SARS-COV-2 RT PCR EDMS EC:45 Rate is 80 beats/min. Rhythm is regular. UT interval is prolonged at 208 msec. QRS cp interval is normal. QT interval is normal. T waves are Inverted in lead aVR. Interpreted by me. Reviewed by me. Administered Medications: 17:24 Drug: LevaQUIN (levofloxacin) 750 mg Volume: 150 ml; Route: IVPB; Infused Over: 90 ww mins; Site: left hand; 20:02 Follow up: Response: No adverse reaction; IV Status: Completed infusion; IV Intake: lg3 150ml 20:08 Drug: vancoMYCIN 1 grams Route: IVPB; Infused Over: 2 hrs; Site: left upper arm; lg3 20:45 Follow up: Response: No adverse reaction; IV Status: Infusion continued upon admission lg3 Disposition Summary: 11/15/21 16:49 Hospitalization Ordered Hospitalization Status: Inpatient Admission cp Provider: Shahab Kendrick cp Location: Telemetry/MedSurg (Inpatient) cp Condition: Stable cp Problem: new cp Symptoms: have improved cp Bed/Room Type: Standard cp Room Assignment: 405(11/15/21 19:23) mw Diagnosis - Cellulitis of right lower limb cp - Cellulitis of left lower limb cp Forms: - Medication Reconciliation Form cp - SBAR form cp Addendum: 11/17/2021 00:08 Co-signature as Attending Physician, Cale Hoffmann MD. r n Signatures: Dispatcher [employer] Alanna Cook RN RN Cale Moura MD MD rn Tommy Nick PA PA cp Chiara Crane RN RN ap3 Olivia Jimenez RN RN 3 Rachael Vela RN RN ww Corrections: (The following items were deleted from the chart) 11/15 19:23 16:49 cp michael
--- NOTE | 2021-11-15 16:50 | ER ---
Nurse's Notes [facility] Name: Nedra Lusi Age: 61 yrs Sex: Female : 1960 Arrival Date: 11/15/2021 Time: 13:31 Bed 19 Private MD: Diagnosis: Cellulitis of right lower limb;Cellulitis of left lower limb Presentation: 11/15 13:51 Chief complaint: Patient states: she was evaluated by her foot doctor today, and was ap3 informed she has an infection in her right great toe which will require IV antibiotics, so they were sent here to the ED for further evaluation. Coronavirus screen: At this time, the client does not indicate any symptoms associated with coronavirus-19. Ebola Screen: No symptoms or risks identified at this time. Initial Sepsis Screen: Does the patient meet any 2 criteria? No. Patient's initial sepsis screen is negative. Does the patient have a suspected source of infection? No. Patient's initial sepsis screen is negative. Risk Assessment: Do you want to hurt yourself or someone else? Patient reports no desire to harm self or others. Onset of symptoms was November 12, 2021. 13:51 Method Of Arrival: Ambulatory ap3 13:51 Acuity: EDEL 3 ap3 Triage Assessment: 13:54 General: Appears in no apparent distress. Behavior is calm, cooperative. Pain: Denies ap3 pain. Neuro: Level of Consciousness is awake, alert, obeys commands, Oriented to person, place, time, situation, Gait is steady, Speech is normal. Cardiovascular: Patient's skin is warm and dry. Respiratory: Airway is patent Respiratory effort is even, unlabored. Derm: Wound noted right first toe. Musculoskeletal:. Historical: - Allergies: 13:53 Hydrocodone-Acetaminophen; ap3 13:53 Hydrocortisone; ap3 - Home Meds: 13:53 Tresiba FlexTouch U-100 subcutaneous [Active]; ap3 - PMHx: 13:53 diabetes mellitus; Hypertensive disorder; ap3 - Immunization history:: Client reports receiving the 2nd dose of the Covid vaccine. - Social history:: Smoking status: Patient denies any tobacco usage or history of. Screenin:55 Abuse screen: Denies threats or abuse. Nutritional screening: No deficits noted. ap3 Tuberculosis screening: No symptoms or risk factors identified. 19:14 Fall Risk None identified. lg3 Assessment: 14:05 General: Appears in no apparent distress. Behavior is cooperative. Pain: Complains of ww pain in right foot and left foot. Neuro: Level of Consciousness is awake, alert, obeys commands, Oriented to person, place, time, situation, Moves all extremities. Gait is steady, Speech is normal. Cardiovascular: Capillary refill < 3 seconds Patient's skin is warm and dry. Respiratory: Airway is patent Respiratory effort is even, unlabored, Respiratory pattern is regular, symmetrical. GI: No signs and/or symptoms were reported involving the gastrointestinal system. : No signs and/or symptoms were reported regarding the genitourinary system. Derm: Wound noted ball of left foot and right foot. 15:25 Reassessment: Patient appears in no apparent distress at this time. No changes from previously documented assessment. Patient and/or family updated on plan of care and expected duration. Pain level reassessed. Patient is alert, oriented x 3, equal unlabored respirations, skin warm/dry/pink. 16:47 Reassessment: Patient appears in no apparent distress at this time. No changes from ww previously documented assessment. Patient and/or family updated on plan of care and expected duration. Pain level reassessed. Patient is alert, oriented x 3, equal unlabored respirations, skin warm/dry/pink. 17:38 Reassessment: Patient appears in no apparent distress at this time. No changes from ww previously documented assessment. Patient and/or family updated on plan of care and expected duration. Pain level reassessed. Patient is alert, oriented x 3, equal unlabored respirations, skin warm/dry/pink. 18:39 Reassessment: Patient appears in no apparent distress at this time. No changes from ww previously documented assessment. Patient and/or family updated on plan of care and expected duration. Pain level reassessed. Patient is alert, oriented x 3, equal unlabored respirations, skin warm/dry/pink. 19:14 General: Appears in no apparent distress. comfortable, Behavior is calm, cooperative. lg3 Pain: Complains of pain in left foot and right foot. Neuro: No deficits noted. Frazier Agitation-Sedation Scale (RASS): 0 - Alert and Calm Level of Consciousness is awake, alert, obeys commands, Oriented to person, place, time, situation. Cardiovascular: No deficits noted. Denies chest pain, shortness of breath, Capillary refill < 3 seconds Clubbing of nail beds is absent JVD is absent Patient's skin is warm and dry. Respiratory: No deficits noted. Airway is patent Trachea midline Respiratory effort is even, unlabored, Respiratory pattern is regular, symmetrical. GI: No deficits noted. No signs and/or symptoms were reported involving the gastrointestinal system. : No deficits noted. No signs and/or symptoms were reported regarding the genitourinary system. EENT: No deficits noted. No signs and/or symptoms were reported regarding the EENT system. Derm: Wound noted ball of left foot and right first toe. Musculoskeletal: No deficits noted. No signs and/or symptoms reported regarding the musculoskeletal system. Amputation of left second toe. Circulation, motion, and sensation intact. Capillary refill < 3 seconds, Range of motion: intact in all extremities. 20:37 General: attempted to call report. Nurse not available. . lg3 Vital Signs: 13:51 BP 125 / 61; Pulse 80; Resp 17; Temp 97.9; Pulse Ox 95% ; Weight 100.7 kg; Height 5 ft. ap3 11 in. (180.34 cm); 16:00 BP 131 / 73; Pulse 74; Resp 20; Pulse Ox 100% on R/A; ww 19:18 BP 134 / 74; Pulse 72; Resp 18; Pulse Ox 100% on R/A; lg3 13:51 Body Mass Index 30.96 (100.70 kg, 180.34 cm) ap3 ED Course: 13:31 Patient arrived in ED. rg4 13:46 Tommy Nick PA is PHCP. cp 13:46 Cale Hoffmann MD is Attending Physician. cp 13:53 Triage completed. ap3 13:55 Arm band placed on right wrist. ap3 14:27 Rachael Vela, RN is Primary Nurse. ww 14:55 Wound Culture Sent. mh5 14:55 EKG done, by ED staff, reviewed by Cale Hoffmann MD Wound culture swab sent to lab. mh5 Missed attempt(s): 20 gauge in right antecubital area. 14:56 Patient has correct armband on for positive identification. Placed in gown. Bed in low mh5 position. Call light in reach. Side rails up X 1. Warm blanket given. Pillow given. coding compliance specialist on. Pulse ox on. NIBP on. 15:10 XRAY Foot RIGHT 2 View In Process Unspecified. EDMS 15:10 XRAY Foot LEFT 2 View In Process Unspecified. EDMS 15:29 ESR Sent. mh5 15:29 CRP Sent. mh5 15:29 Blood Culture Adult (2) Sent. mh5 15:29 CBC with Diff Sent. mh5 15:29 CMP Sent. mh5 15:29 Lactate Sent. mh5 15:29 Protime (+inr) Sent. mh5 15:29 Ptt, Activated Sent. mh5 15:29 Wound Culture Sent. mh5 16:48 Shahab Kendrick MD is Hospitalizing Provider. cp 17:06 US Extremity Venous W Compression Cisco In Process Unspecified. EDMS 17:42 COVID-19 SARS RT PCR (Document "Date of Onset" if Symptomatic) Sent. ww 17:42 COVID-19 (Coronavirus) Document "Date of Onset" if Symptomatic Sent. ww 18:10 COVID 19 CPL Sent. ww 20:00 Accessed peripheral vein via ultrasound, utilizing dynamic ultrasound technique bb Powerglide midline 20g 10 cm to left upper arm using hospital protocol has good blood return and flushes easily pt tolerated well. 20:09 Inserted 20G midline to left upper arm via guided US by Kirsten Xie RN. 3 20:44 No provider procedures requiring assistance completed. Patient admitted, IV remains in lg3 place. intact, No redness/swelling at site. Administered Medications: 17:24 Drug: LevaQUIN (levofloxacin) 750 mg Volume: 150 ml; Route: IVPB; Infused Over: 90 ww mins; Site: left hand; 20:02 Follow up: Response: No adverse reaction; IV Status: Completed infusion; IV Intake: lg3 150ml 20:08 Drug: vancoMYCIN 1 grams Route: IVPB; Infused Over: 2 hrs; Site: left upper arm; lg3 20:45 Follow up: Response: No adverse reaction; IV Status: Infusion continued upon admission lg3 Medication: 19:14 VIS not applicable for this client. lg3 Intake: 20:02 IV: 150ml; Total: 150ml. lg3 Outcome: 16:49 Decision to Hospitalize by Provider. cp 20:44 Admitted to [facility] accompanied by edy, via wheelchair, room 405, Report called to [facility] 20:44 Condition: stable 20:44 Instructed on the need for admit. 21:13 Patient left the ED. wm Signatures: Dispatcher [employer] Kirsten Martines, RN RN Tommy Krueger PA PA cp Garcia, Rubi rg4 Martinez, Maria mh5 Prokisch, Amanda RN RN ap3 Olivia Jimenez RN RN lg3 Dennise Whitten Whitney RN KAITY ww
--- NOTE | 2021-11-15 17:11 | RAD REPORT ---
EXAM DESCRIPTION: US - Extrem Venous W Compress Cisco - 11/15/2021 5:04 pm CLINICAL HISTORY: SWELLING Bilateral leg edema and swelling. COMPARISON: No comparisons TECHNIQUE: Real-time sonographic interrogation of the left and right lower extremity deep venous sys tems was performed. FINDINGS: Normal compressibility, flow augmentation, phasic flow and spontaneous flow is identified in both the left and right lower extremity deep venous systems. IMPRESSION: No sonographic evidence of left or right lower extremity deep venous thrombosis.
[2021-11-15] MEDS ORDERED: LABETALOL 20 MG/4ML SYRINGE IV PRN (17:25)
[2021-11-15] MEDS ORDERED: HYDROCODONE/APAP 5/325 MG TAB PO PRN (17:25)
[2021-11-15] MEDS ORDERED: ONDANSETRON 4 MG/2 ML VIAL IV PRN (17:26)
[2021-11-15] MEDS ORDERED: ACETAMINOPHEN 500 MG TAB PO PRN (17:26)
[2021-11-15] MEDS ORDERED: ZOLPIDEM TARTRATE 5 MG TABLET PO PRN (17:26)
[2021-11-15] MEDS ORDERED: VANCOMYCIN 1 GM in NA CHLORIDE 0.9% 250 ML IVPB SCH (17:32)
--- NOTE | 2021-11-15 17:36 | P.HP ---
Certification for Inpatient Patient admitted to: Inpatient With expected LOS: >2 Midnights Patient will require the following post-hospital care: None Practitioner: I am a practitioner with admitting privileges, knowledge of patient current condition, hospital course, and medical plan of care. Services: Services provided to patient in accordance with Admission requirements found in Title 42 Section 412.3 of the Code of Federal Regulations Patient History Date of Service: 11/15/21 Allergies hydrocortisone Allergy (Verified 01/01/21 01:45) Hives Home medications list reviewed: No - Past Medical/Surgical History Diabetic: Yes -: Diabetes mellitus type 2 -: Hypertension -: Left toe amputation -: L foot surgery Psychosocial/ Personal History: Unemployed, lives with boyfriend - Family History Brother -: Diabetes Sister -: Diabetes - Social History Smoking Status: Never smoker Alcohol use: No CD- Drugs: No Caffeine use: Yes Review of Systems General: Unremarkable Eyes: Unremarkable ENT: Unremarkable Respiratory: Unremarkable Cardiovascular: Unremarkable Gastrointestinal: Unremarkable Musculoskeletal: Leg Pain, Foot Pain, Pedal edema Integumentary: Unremarkable Neurological: Unremarkable Lymphatics: Unremarkable Physical Examination - Physical Exam General: Alert, Oriented x3 HEENT: Normocephalic, PERRLA Neck: Supple, 2+ carotid pulse no bruit, JVD not distended Respiratory: Clear to auscultation bilaterally, Normal air movement Cardiovascular: Normal pulses, Regular rate/rhythm, Normal S1 S2 Capillary refill: <2 Seconds Gastrointestinal: Normal bowel sounds, Soft and benign Musculoskeletal: Swelling, Erythema Integumentary: Diabetic ulcer Neurological: Normal speech, Normal tone - Studies Laboratory Data (last 24 hrs) 11/15/21 15:20: PT 11.8, INR 1.07, APTT 38.0 H 11/15/21 15:20: Sodium 140, Potassium 3.8, BUN 15, Creatinine 1.24, Glucose 213 H, Total Bilirubin 0.2, AST 21, ALT 24, Alkaline Phosphatase 102 11/15/21 15:20: WBC 8.2, Hgb 10.1 L, Hct 32.2 L, Plt Count 324 Assessment and Plan - Plan --Bilateral foot diabetic ulcers. MRI of foot pending to rule out osteomyelitis. Blood\wound cultures pending. Wound care team consulted. Continue antibiotics. -- Acute pain. We will manage pain with current pain medication regimen. --DM2. BS monitoring with sliding scale insulin. --Hypertension. Stable. Continue medications. --Bilateral lower extremity cellulitis. Blood cultures pending. Continue antibiotics. -- Obesity. Likely secondary to excess calories intake. Patient counseled on weight reduction, diet and exercise therapy --Anemia of chronic disease. H&H stable. We will continue to monitor hemoglobin and transfuse if less than 7.0. --CKD 3A. Baseline functions unknown. We will continue to monitor renal functions. --DVT prophylaxis with heparin subQ Discharge Plan: Home Plan to discharge in: 72 Hours - Advance Directives Does patient have a Living Will: No Does patient have a Durable POA for Healthcare: No - Code Status/Comfort Care Code Status Assessed: Yes Code Status: Full Code Physician Review: Patient Assessed, Agree with Above Assessment and Plan Critical Care: No
[2021-11-15 19:10] LABS: Urine Amorphous Sediment 1+ /HPF (NONE SEEN); Urine Bacteria 20-50 /HPF (<20); Urine RBC <5 /HPF (NONE SEEN)
[2021-11-15] MEDS: INSULIN -REGULAR HUMAN 50 UNIT/0.5 ML ML SQ SCH (21:00)
[2021-11-15] MEDS: HEPARIN 5000 UNIT/ML 1 ML VIAL SQ SCH (23:02)
[2021-11-15] MEDS: CEFEPIME 1 GM in NA CHLORIDE 0.9% 100 ML IV SCH (23:02)
[2021-11-16 04:40] LABS: Absolute Lymphocytes (CBC) 0.9 K/uL (0.7-4.9); Hematocrit 30.1 % (36.0-45.0); Lymphocytes % 11.3 % (15.3-44.8); MCV 95.9 fL (80-100); MPV 8.3 fL (7.6-11.3); RBC Red Blood Cell Count 3.14 M/uL (3.86-4.86)
[2021-11-16 05:02] LABS: Albumin 2.4 g/dL (3.4-5.0); Bilirubin Total 0.2 mg/dL (0.2-1.0); Potassium 3.8 mmol/L (3.5-5.1); Protein, Total 7.1 g/dL (6.4-8.2)
[2021-11-16 05:34] LABS: Magnesium 1.9 mg/dL (1.8-2.4); Phosphorus 2.5 mg/dL (2.5-4.9)
[2021-11-16 06:08] LABS: Urine Appearance Clear (Clear); Urine Bilirubin Negative (Negative); Urine Blood Trace-lysed (Negative); Urine Color Yellow (Yellow); Urine Glucose Negative (Negative); Urine Protein Trace (Negative); Urine Urobilinogen 0.2 mg/dL (0.2-1.0); Urine pH 6.5 (5.0-7.0)
[2021-11-16 06:29] LABS: Urine Microscopic Reflex ORDER UMIC
[2021-11-16 06:45] LABS: Urine Bacteria <20 /HPF (<20); Urine RBC <5 /HPF (NONE SEEN)
[2021-11-16] MEDS: INSULIN -REGULAR HUMAN 50 UNIT/0.5 ML ML SQ SCH ×4 (07:30→20:20)
--- NOTE | 2021-11-16 07:55 | EKG ---
Test Date: 2021-11-15 Test Time: 14:38:40 [employer]: GRISEL MEASUREMENT RESULTS: Intervals: Rate: 80 IL: 208 QRSD: 100 QT: 384 QTc: 442 Clover: P: 67 IL: 208 QRS: 96 T: 37 INTERPRETIVE STATEMENTS: Normal sinus rhythm Rightward axis Borderline ECG Compared to ECG 04/19/2010 15:42:04 Right-axis deviation now present Sinus tachycardia no longer present ST (T wave) deviation no longer present Electronically Signed On 11-16-21 07:52:38 CDT by Pepe Silva
[2021-11-16] MEDS ORDERED: POTASSIUM CL SA 10 MEQ TAB PO ONE (09:00)
[2021-11-16] MEDS: CEFEPIME 1 GM in NA CHLORIDE 0.9% 100 ML IV SCH ×2 (09:17→20:20)
[2021-11-16] MEDS: VANCOMYCIN 1.75 GM in NA CHLORIDE 0.9% 500 ML IVPB SCH (09:18)
[2021-11-16] MEDS: POTASS/SODIUM PHOSPHATE 1 PKT POWD.PACK PO SCH ×3 (09:23→12:41)
[2021-11-16] MEDS: HEPARIN 5000 UNIT/ML 1 ML VIAL SQ SCH ×2 (09:46→20:19)
--- NOTE | 2021-11-16 16:24 | P.PN ---
Subjective Date of Service: 11/16/21 Subjective: No new changes, Improving Physical Examination - Vital Signs Temperature: 98.5 F Blood Pressure: 152/79 Pulse: 78 Respirations: 18 Pulse Ox (%): 100 - Physical Exam General: Alert, Oriented x3 HEENT: Atraumatic, Normocephalic Neck: Supple Respiratory: Normal air movement Cardiovascular: Regular rate/rhythm, Normal S1 S2 Gastrointestinal: Soft and benign Musculoskeletal: Other (right foot wound in dressing.) Neurological: Normal speech, Normal strength at 5/5 x4 extr - Studies Microbiology Data (last 24 hrs): 11/15/21 15:20 Blood - Blood Blood Culture Gram Stain - Final 11/15/21 14:52 Wound - Right Foot Gram Stain - Final Assessment And Plan - Plan Diabetic foot ulcer Right foot cellulitis Diabetes type 2 Hypertension Hyperlipidemia Bacteremia Plan: Patient was started on antibiotics Blood cultures growing gram + cocci in clusters. Empiric antibiotic of vancomycin and cefepime to be continued for now. Wound care following patient. Podiatry following patient Follow symptomatology and labs closely. Will continue patient on diabetic diet. Physician Review: Patient Assessed, Agree with Above Assessment and Plan
--- NOTE | 2021-11-16 20:02 | RAD REPORT ---
EXAM DESCRIPTION: MRIFoot Right Wo Cont11/16/2021 7:43 pm CLINICAL HISTORY: Right foot pain and swelling COMPARISON: November 15, 2021 x-ray TECHNIQUE: Axial, sagittal and coronal magnetic resonance imaging of the right foot was obtained. FINDINGS: Marked bony destruction involves the first distal phalanx with little normal bone is seen. Abnormal signal involves almost the entire first proximal phalanx. A bony fragment lies adjacent to t he medial aspect of the distal portion. Adjacent soft tissue ulceration is seen. IMPRESSION: Extensive osteomyelitis involving first proximal and first distal phalanges. A pathologic avulsion fracture involves the first proximal phalanx.
--- NOTE | 2021-11-16 20:06 | RAD REPORT ---
EXAM DESCRIPTION: MRI - Foot Left Wo Cont - 11/16/2021 7:52 pm CLINICAL HISTORY: Foot pain and swelling COMPARISON: November 15, 2021 x-ray TECHNIQUE: Axial, sagittal and coronal magnetic resonance imaging left foot FINDINGS: Soft tissue ulceration medial forefoot. No abnormal signal is seen within the bones. Hallux valgus deformity. Edema within the subcutaneous tissues. IMPRESSION: Edema within the subcutaneous tissues probably cellulitis No evidence of osteomyelitis
[2021-11-17] MEDS: INSULIN -REGULAR HUMAN 50 UNIT/0.5 ML ML SQ SCH ×4 (07:30→21:18)
[2021-11-17 08:14] LABS: Albumin 2.4 g/dL (3.4-5.0); Bilirubin Total 0.2 mg/dL (0.2-1.0); Potassium 3.8 mmol/L (3.5-5.1); Protein, Total 7.1 g/dL (6.4-8.2)
[2021-11-17] MEDS: CEFEPIME 1 GM in NA CHLORIDE 0.9% 100 ML IV SCH ×2 (08:23→21:18)
[2021-11-17] MEDS: HEPARIN 5000 UNIT/ML 1 ML VIAL SQ SCH ×2 (08:23→21:19)
[2021-11-17] MEDS: VANCOMYCIN 1.75 GM in NA CHLORIDE 0.9% 500 ML IVPB SCH (09:08)
[2021-11-17] MEDS ORDERED: NA CHLORIDE 0.9% 100 ML ONE (20:59)
[2021-11-18 01:09] VITALS: BMI 30.1
[2021-11-18] MEDS: INSULIN -REGULAR HUMAN 50 UNIT/0.5 ML ML SQ SCH ×4 (07:30→20:29)
[2021-11-18] MEDS: HEPARIN 5000 UNIT/ML 1 ML VIAL SQ SCH ×2 (08:07→21:07)
[2021-11-18] MEDS: CEFEPIME 1 GM in NA CHLORIDE 0.9% 100 ML IV SCH (08:07)
[2021-11-18] MEDS: VANCOMYCIN 1.75 GM in NA CHLORIDE 0.9% 500 ML IVPB SCH (09:00)
[2021-11-18] MEDS ORDERED: CEFAZOLIN 2 GM in NA CHLORIDE 0.9% 100 ML IVPB SCH (12:00)
[2021-11-18] MEDS: CEFAZOLIN 2 GM in NA CHLORIDE 0.9% 100 ML IVPB SCH ×2 (12:19→16:32)
[2021-11-18] MEDS ORDERED: VANCOMYCIN 1.25 GM in NA CHLORIDE 0.9% 250 ML IVPB SCH (14:00)
--- NOTE | 2021-11-18 14:40 | P.PN ---
Subjective Date of Service: 11/18/21 Subjective: No new changes, Improving Physical Examination - Vital Signs Temperature: 96.5 F Blood Pressure: 149/77 Pulse: 80 Respirations: 18 Pulse Ox (%): 100 - Physical Exam General: Alert, Oriented x3 HEENT: Atraumatic, Normocephalic Neck: Supple Respiratory: Normal air movement Cardiovascular: Regular rate/rhythm, Normal S1 S2 Gastrointestinal: Soft and benign Musculoskeletal: Other (right foot infection.) Neurological: Normal speech, Normal strength at 5/5 x4 extr - Studies Microbiology Data (last 24 hrs): 11/15/21 14:52 Wound - Right Foot Gram Stain - Final 11/15/21 17:00 Blood - Blood Anaerobic Blood Culture - Final Staph Aureus 11/15/21 17:00 Blood - Blood Gram Stain - Final 11/15/21 15:20 Blood - Blood Aerobic Blood Culture - Final Staph Aureus 11/15/21 15:20 Blood - Blood Blood Culture Gram Stain - Final 11/15/21 15:20 Blood - Blood Anaerobic Blood Culture - Final Staph Aureus 11/15/21 15:20 Blood - Blood Gram Stain - Final Assessment And Plan - Plan Diabetic foot ulcer Right foot cellulitis Diabetes type 2 Hypertension Hyperlipidemia Bacteremia Plan: Patient was started on antibiotics Blood cultures growing gram + cocci in clusters. Empiric antibiotic of vancomycin and cefepime to be continued for now. Wound care following patient. Podiatry following patient Follow symptomatology and labs closely. Will continue patient on diabetic diet. Physician Review: Patient Assessed, Agree with Above Assessment and Plan
--- NOTE | 2021-11-18 14:42 | P.PN ---
Subjective Date of Service: 11/18/21 Subjective: No new changes, Improving Physical Examination - Vital Signs Temperature: 96.5 F Blood Pressure: 149/77 Pulse: 80 Respirations: 18 Pulse Ox (%): 100 - Physical Exam General: Alert, Oriented x3 HEENT: Atraumatic, Normocephalic Neck: Supple Respiratory: Normal air movement Cardiovascular: Regular rate/rhythm, Normal S1 S2 Gastrointestinal: Soft and benign - Studies Microbiology Data (last 24 hrs): 11/15/21 14:52 Wound - Right Foot Gram Stain - Final 11/15/21 17:00 Blood - Blood Anaerobic Blood Culture - Final Staph Aureus 11/15/21 17:00 Blood - Blood Gram Stain - Final 11/15/21 15:20 Blood - Blood Aerobic Blood Culture - Final Staph Aureus 11/15/21 15:20 Blood - Blood Blood Culture Gram Stain - Final 11/15/21 15:20 Blood - Blood Anaerobic Blood Culture - Final Staph Aureus 11/15/21 15:20 Blood - Blood Gram Stain - Final Assessment And Plan - Plan Diabetic foot ulcer Right foot cellulitis Diabetes type 2 Hypertension Hyperlipidemia Staph aureus bacteremia Osteomyelitis of right foot toes. Plan: Patient was started on antibiotics Blood cultures growing staph aureus. Empiric antibiotic of vancomycin and cefepime to be continued for now. Wound care following patient. Podiatry following patient ID consulted for management recommendations. Follow symptomatology and labs closely. we will repeat Blood cultures today. Will continue patient on diabetic diet. Physician Review: Patient Assessed, Agree with Above Assessment and Plan
--- NOTE | 2021-11-18 17:01 | CON ---
History Of Present Illness: This is a 61-year-old female who has a longstanding history of diabetes mellitus and diabetic neuropathy coming in with right big toe diabetic foot ulcer and left first meta tarsal head diabetic foot ulcer with callus formation. The patient has amputation of left second toe . The patient has been followed by [facility] rem[facility] as an outpatient. Her blood sugars are poorly control led. The patient denies any headache, nausea, vomiting, chest pain, abdominal pain, constipation, di arrhea. Her blood cultures are positive for Staphylococcus aureus and right foot cultures are positi ve for Morganella morganii. The patient is currently being treated with vancomycin and cefepime. Past Medical History: Diabetes mellitus, hypertension, left second toe amputation, left foot surgery . Social History: Nonsmoker, nondrinker. Family History: Noncontributory. Medications: Vancomycin, cefepime. See MAR for other medications. Allergies: HYDROCORTISONE. Review of Systems: A 10-point review was performed. Physical Examination: General: This is a 61-year-old female lying in bed, not in any acute cardiopulmonary distress. Vital Signs: Temperature 98.7, pulse 85, respirations 18, blood pressure 140/74. HEENT: Unremarkable. Neck: Supple. Lungs: Basal crackles. Heart: S1, S2. Regular. Abdomen: Soft, nontender. Bowel sounds present. Extremities: Bilateral lower extremity 1+ edema with swelling and ulceration noted at the right big toe and left first metatarsal head at the wounds noted. Small amount of drainage noted at the right big toe and callus formation noted at the left first metatarsal head region. Laboratory Data: Shows WBC 8.1, hemoglobin 9.6, platelets are 302. Chemistry shows sodium 142, pota ssium 3.8, chloride 117, bicarb 19, BUN 13, creatinine 0.9, glucose is 197, albumin is 2.4. Micro Data: Blood culture positive for Staphylococcus aureus, 4/4 bottles and right foot cultures ar e positive for Morganella morganii. Her MRI of the foot shows extensive osteomyelitis involving first proximal and first distal phalanges with pathologic avulsion fracture involving the first proximal phalanx. Assessment And Plan: Osteomyelitis of right big toe with second toe diabetic foot ulcers on the righ t big toe and left first metatarsal head region in a patient with diabetes mellitus and diabetic neur opathy. The patient is currently getting vancomycin and cefepime. We will recommend to switch the p atient to Cipro and Ancef. As we know blood cultures are positive for Staphylococcus aureus and righ t foot wound is Morganella morganii. We will also recommend to apply Betadine to both the wounds, mo nitor blood sugars, and adjust sugar level as much as possible to bring fasting blood sugar down to b etween 100 and 150. Recommend also to check on hemoglobin A1c. Prognosis guarded. Consider long-te acute care. We will follow the patient closely. HARINI/MYNOR Voice ID: [id number] Report ID: [id number]
--- NOTE | 2021-11-18 17:18 | P.CNS ---
Date of Consult: 11/18/21 Reason for Consult: osteomyelitis right great toe Chief Complaint: Right foot wound that has progressed to osteomyelitis. History of Present Illness: Patient has been admitted for three days and is on iv antibiotics Allergies hydrocortisone Allergy (Verified 01/01/21 01:45) Hives Home Medications: Amlodipine Besylate 1 tab PO DAILY 11/15/21 Atorvastatin Calcium 20 mg PO DAILY 11/15/21 Bimatoprost [Lumigan Opthalmic Drops*] 1 drop EACH EYE BEDTIME 11/15/21 Brimonidine Tartrate/Timolol [Brimonidine-Timolol 0.2%-0.5%] 1 drop EACH EYE BID 11/15/21 Dorzolamide HCl/Pf [Dorzolamide 2% Eye Drop] 1 drop LEFT EYE BID 11/15/21 Fluticasone Propionate [Flovent Diskus] 1 spray ROLANDO DAILY 11/15/21 Fluticasone/Salmeterol [Advair Hfa 230-21 Mcg Inhaler] 2 puff PO BID 11/15/21 Nebivolol HCl 1 tab PO DAILY 11/15/21 PARoxetine HCL [Paxil*] 1 tab PO DAILY 11/15/21 Pantoprazole [Protonix Tab*] 1 tab PO DAILY 11/15/21 acetaZOLAMIDE [Acetazolamide] 1 tab PO BID 11/15/21 - Past Medical/Surgical History Diabetic: Yes -: Diabetes mellitus type 2 -: Hypertension -: Left toe amputation -: L foot surgery Psychosocial/ Personal History: Unemployed, lives with boyfriend - Family History Brother Medical History: Diabetes Sister Medical History: Diabetes - Social History Alcohol use: No CD- Drugs: No Caffeine use: Yes Place of Residence: Home Review of Systems 10-point ROS is otherwise unremarkable Physical Examination Temp Pulse Resp BP Pulse Ox 97.5 F 85 18 145/70 H 100 11/18/21 15:44 11/18/21 15:44 11/18/21 15:44 11/18/21 15:44 11/18/21 15:44 General: Alert, In no apparent distress, Oriented x3 Cardiovascular: No edema, Normal pulses Capillary refill: <2 Seconds Musculoskeletal: No clubbing, No swelling, No contractures, No erythema, No tenderness, No warmth Integumentary: No rashes, No erythema, No warmth, No cyanosis, Diabetic ulcer (Ulceration right plantar and dorsal hallux that probes to bone, no purulence expressed at this time. Wound plantar left 1st mpj with granular base, no probing to bone, no purulence) Neurological: Abnormal sensation Imagings Data: MRI positive for osteomyelitis right hallux proximal and distal phalanx - Problems (1) Osteomyelitis of foot, right, acute Current Visit: Yes Status: Acute Conclusions/Impression: Discussed surgical vs medial management of right great toe osteomyelitis. Patient is wanting to attempt to save the toe. I agree with Dr. Harrington in patient wound be a good candidate for LTAC for iv antibiotics and hyperbarics.
[2021-11-18] MEDS: CIPROFLOXACIN 400mg IV 400 MG/200 ML BAG IV SCH (20:58)
[2021-11-19] MEDS: CEFAZOLIN 2 GM in NA CHLORIDE 0.9% 100 ML IVPB SCH ×2 (00:39→09:00)
[2021-11-19] MEDS ORDERED: CEFAZOLIN SODIUM 1 GM/VIAL ONE (00:43)
[2021-11-19 05:16] LABS: Potassium 3.6 mmol/L (3.5-5.1)
[2021-11-19 06:10] LABS: Arterial Blood Carboxyhemoglob 0.6 % (0-1.5); Blood Gas Oxyhemoglobin 93.7 % (94-97); Blood O2 Saturation 95.5 % (92-98.5)
[2021-11-19] MEDS: INSULIN -REGULAR HUMAN 50 UNIT/0.5 ML ML SQ SCH ×4 (07:30→21:00)
[2021-11-19] MEDS ORDERED: POTASSIUM CL SA 10 MEQ TAB PO ONE (09:00)
[2021-11-19] MEDS: CIPROFLOXACIN 400mg IV 400 MG/200 ML BAG IV SCH ×2 (10:41→23:41)
[2021-11-19] MEDS: HEPARIN 5000 UNIT/ML 1 ML VIAL SQ SCH ×2 (10:42→20:34)
[2021-11-19] MEDS: SODIUM BICARB 325 MG TAB PO SCH ×3 (10:42→20:23)
[2021-11-19] MEDS: CEFAZOLIN SODIUM 2 GM in NA CHLORIDE 0.9% 100 ML IVPB SCH ×2 (13:13→20:12)
--- NOTE | 2021-11-19 15:30 | P.PN ---
Subjective Date of Service: 11/19/21 Chief Complaint: Right foot wound that has progressed to osteomyelitis. Subjective: No new changes, Improving Physical Examination - Vital Signs Temperature: 97.7 F Blood Pressure: 156/81 Pulse: 82 Respirations: 18 Pulse Ox (%): 100 - Physical Exam General: Alert, Oriented x3 HEENT: Atraumatic, Normocephalic Neck: Supple Respiratory: Normal air movement Cardiovascular: Regular rate/rhythm Gastrointestinal: Soft and benign Musculoskeletal: No swelling Neurological: Normal speech - Studies Microbiology Data (last 24 hrs): 11/15/21 14:52 Wound - Right Foot Gram Stain - Final 11/15/21 17:00 Blood - Blood Aerobic Blood Culture - Final Staph Aureus 11/15/21 17:00 Blood - Blood Anaerobic Blood Culture - Final Staph Aureus 11/15/21 17:00 Blood - Blood Gram Stain - Final Assessment And Plan - Plan Diabetic foot ulcer Right foot cellulitis Diabetes type 2 Hypertension Hyperlipidemia Staph aureus bacteremia Osteomyelitis of right foot toes. Metabolic acidemia Plan: Patient has been evaluated by podiatry and ID. Osteomyelitis evidence reviewed and discussion about management plan had with patient. There is plan to have toe saving measures with hyperbaric oxygen and appropriate wound care as per ID and podiatry agreement. Continue present care with IV antibiotic of Cipro and cefazolin. Will have wound culture evaluated and also repeat blood cultures result reviewed for evaluation of clearance of staph aureus bacteremia. Bicarb level better after serum bicarbonate started for metabolic acidemia. Monitor labs daily. Will continue patient on diabetic diet. Physician Review: Patient Assessed, Agree with Above Assessment and Plan
[2021-11-20] MEDS: CEFAZOLIN SODIUM 2 GM in NA CHLORIDE 0.9% 100 ML IVPB SCH ×3 (05:51→21:10)
[2021-11-20 07:38] LABS: Potassium 3.6 mmol/L (3.5-5.1)
[2021-11-20] MEDS ORDERED: POTASSIUM CL SA 10 MEQ TAB PO ONE (08:00)
[2021-11-20] MEDS: SODIUM BICARB 325 MG TAB PO SCH ×3 (10:28→21:10)
[2021-11-20] MEDS: HEPARIN 5000 UNIT/ML 1 ML VIAL SQ SCH ×2 (10:28→21:15)
[2021-11-20] MEDS: CIPROFLOXACIN 400mg IV 400 MG/200 ML BAG IV SCH ×2 (10:29→21:11)
[2021-11-20] MEDS: INSULIN -REGULAR HUMAN 50 UNIT/0.5 ML ML SQ SCH ×5 (10:35→21:00)
[2021-11-20] MEDS ORDERED: ONDANSETRON 4 MG/2 ML VIAL IV PRN (12:43)
[2021-11-20] MEDS ORDERED: GLUCAGON 1 MG/VIAL IM PRN (12:43)
[2021-11-20] MEDS ORDERED: D50W 25 GM/50 ML SYRINGE IV PRN (12:43)
[2021-11-20] MEDS ORDERED: ACETAMINOPHEN 500 MG TAB PO PRN (12:43)
[2021-11-20] MEDS ORDERED: ZOLPIDEM TARTRATE 5 MG TABLET PO PRN (12:43)
[2021-11-20] MEDS ORDERED: HYDROCODONE/APAP 5/325 MG TAB PO PRN (12:43)
--- NOTE | 2021-11-20 13:37 | P.PN ---
Subjective Date of Service: 11/20/21 Chief Complaint: Right foot wound that has progressed to osteomyelitis. Subjective: No new changes, Improving Physical Examination - Vital Signs Temperature: 97.3 F Blood Pressure: 159/79 Pulse: 86 Respirations: 17 Pulse Ox (%): 100 - Physical Exam General: Alert, Oriented x3 HEENT: Atraumatic, Normocephalic Neck: Supple Respiratory: Normal air movement Cardiovascular: Regular rate/rhythm, Normal S1 S2 Musculoskeletal: No swelling Neurological: Normal speech - Studies Microbiology Data (last 24 hrs): 11/15/21 14:52 Wound - Right Foot Gram Stain - Final 11/15/21 14:52 Wound - Right Foot Culture & Sensitivity - Final Morganella Morganii Staph Aureus Assessment And Plan - Plan Diabetic foot ulcer Right foot cellulitis Diabetes type 2 Hypertension Hyperlipidemia Staph aureus bacteremia Osteomyelitis of right foot toes. Metabolic acidemia-improving. Plan: Patient has been evaluated by podiatry and ID. Osteomyelitis evidence reviewed and discussion about management plan had with patient. There is plan to have toe saving measures with hyperbaric oxygen and appropriate wound care as per ID and podiatry agreement. Continue present care with IV antibiotic of Cipro and cefazolin. Will have wound culture evaluated and also repeat blood cultures result reviewed for evaluation of clearance of staph aureus bacteremia. Bicarb level better after serum bicarbonate started for metabolic acidemia. Monitor labs daily. Will continue patient on diabetic diet. Physician Review: Patient Assessed, Agree with Above Assessment and Plan
[2021-11-21] MEDS: CEFAZOLIN SODIUM 2 GM in NA CHLORIDE 0.9% 100 ML IVPB SCH ×3 (03:54→20:02)
[2021-11-21 06:29] LABS: Potassium 3.9 mmol/L (3.5-5.1)
[2021-11-21] MEDS: CIPROFLOXACIN 400mg IV 400 MG/200 ML BAG IV SCH ×2 (08:28→20:01)
[2021-11-21] MEDS: INSULIN -REGULAR HUMAN 50 UNIT/0.5 ML ML SQ SCH ×4 (08:29→20:28)
[2021-11-21] MEDS: SODIUM BICARB 325 MG TAB PO SCH ×3 (08:29→20:06)
[2021-11-21] MEDS: HEPARIN 5000 UNIT/ML 1 ML VIAL SQ SCH ×2 (08:29→21:57)
[2021-11-21] MEDS ORDERED: POTASSIUM CL SA 10 MEQ TAB PO ONE (09:00)
[2021-11-21] MEDS ORDERED: D10W 125 ML IV PRN (12:18)
--- NOTE | 2021-11-21 16:45 | P.PN ---
Subjective Date of Service: 11/21/21 Chief Complaint: Right foot wound that has progressed to osteomyelitis. Patient seen and examined at bedside, plan to transfer to [facility] for hyperbarics and long-term IV antibiotic treatment. Patient is in agreement with treatment plan. Review of Systems 10-point ROS is otherwise unremarkable Physical Examination - Vital Signs Temperature: 97.3 F Blood Pressure: 146/70 Pulse: 81 Respirations: 16 Pulse Ox (%): 100 - Physical Exam General: Alert, In no apparent distress, Obese HEENT: Atraumatic Neck: Supple Respiratory: Clear to auscultation bilaterally, Normal air movement Cardiovascular: No edema, Normal pulses Gastrointestinal: Normal bowel sounds, Soft and benign Integumentary: Other (Right great hallux diabetic foot ulcer) Assessment And Plan - Plan Antibiotics: Cefazolin: urrent Ciprofloxacin: 11/18current Assessment/plan Right foot diabetic ulcer with osteomyelitis MRI showed osteomyelitis of the first proximal and first distal phalanx with pathological avulsion fracture of the first proximal phalanx. Wound care per podiatry Wound cultures grew Morganella morganii and methicillin susceptible staph. Recommend continuing cefazolin and ciprofloxacin at this time. Patient will need 6 weeks of IV antibiotic therapy. Recommend PICC line placement. -Recommend transfer to [facility] for long-term IV antibiotic treatment and hyperbaric oxygen therapy Gram-positive bacteremia Blood cultures obtained on 11/12 grew staph aureus, methicillin susceptible in 4 out of 4 bottles. Repeat cultures obtained on 11/18 are pending Recommend continuing cefazolin at this time. Echocardiogram pending CKD stage IIIa Continue to monitor creatinine. Renally dose all antibiotics. Diabetes Continue sliding scale insulin. Strict glucose monitoring needed for proper infection control/wound healing. Plan of care discussed Dr. Harrington Need for consultation Physician Review: Patient Assessed, Agree with Above Assessment and Plan
[2021-11-21] MEDS ORDERED: NA CHLORIDE 0.9% 100 ML ONE (20:00)
[2021-11-22] MEDS ORDERED: NA CHLORIDE 0.9% 100 ML ONE (04:07)
[2021-11-22] MEDS: CEFAZOLIN SODIUM 2 GM in NA CHLORIDE 0.9% 100 ML IVPB SCH ×3 (04:15→20:09)
[2021-11-22 06:08] LABS: Potassium 4.1 mmol/L (3.5-5.1)
[2021-11-22] MEDS: CIPROFLOXACIN 400mg IV 400 MG/200 ML BAG IV SCH ×2 (08:12→20:10)
[2021-11-22] MEDS: INSULIN -REGULAR HUMAN 50 UNIT/0.5 ML ML SQ SCH ×4 (08:12→20:19)
[2021-11-22] MEDS: SODIUM BICARB 325 MG TAB PO SCH ×3 (08:13→20:09)
[2021-11-22] MEDS: HEPARIN 5000 UNIT/ML 1 ML VIAL SQ SCH ×2 (08:13→21:04)
[2021-11-22 10:16] VITALS: O2SAT 100
--- NOTE | 2021-11-22 15:14 | P.PN ---
Subjective Date of Service: 11/22/21 Chief Complaint: Right foot wound that has progressed to osteomyelitis. Patient seen and examined at bedside, no new labs to review. Review of Systems 10-point ROS is otherwise unremarkable Physical Examination - Vital Signs Temperature: 97.1 F Blood Pressure: 132/69 Pulse: 84 Respirations: 16 Pulse Ox (%): 98 Assessment And Plan - Plan Antibiotics: Cefazolin: urrent Ciprofloxacin: 11/18current Assessment/plan Right foot diabetic ulcer with osteomyelitis MRI showed osteomyelitis of the first proximal and first distal phalanx with pathological avulsion fracture of the first proximal phalanx. Wound care per podiatry Wound cultures grew Morganella morganii and methicillin susceptible staph. Recommend continuing cefazolin and ciprofloxacin at this time. Patient will need 6 weeks of IV antibiotic therapy. Recommend PICC line placement. -Recommend transfer to [facility] for long-term IV antibiotic treatment and hyperbaric oxygen therapy Gram-positive bacteremia Blood cultures obtained on 11/12 grew staph aureus, methicillin susceptible in 4 out of 4 bottles. Repeat cultures obtained on 11/18 showed no growth Recommend continuing cefazolin at this time. Echocardiogram pending CKD stage III A Continue to monitor creatinine. Renally dose all antibiotics. Diabetes Continue sliding scale insulin. Strict glucose monitoring needed for proper infection control/wound healing. Plan of care discussed Dr. Harrington Need for consultation Physician Review: Patient Assessed, Agree with Above Assessment and Plan
[2021-11-22 19:03] LABS: Absolute Lymphocytes (CBC) 1.3 K/uL (0.7-4.9); Hematocrit 33.7 % (36.0-45.0); MCV 95.5 fL (80-100); MPV 9.7 fL (7.6-11.3); RBC Red Blood Cell Count 3.53 M/uL (3.86-4.86)
[2021-11-22 19:15] LABS: Potassium 3.7 mmol/L (3.5-5.1)
[2021-11-23] MEDS: CEFAZOLIN SODIUM 2 GM in NA CHLORIDE 0.9% 100 ML IVPB SCH ×3 (03:28→19:17)
--- NOTE | 2021-11-23 08:12 | P.PN ---
Date of Service: 11/21/21 Subjective Subjective: No new changes, Improving Physical Examination - Vital Signs reviewed - Physical Exam General: Alert, Oriented x3 Respiratory: Normal air movement Cardiovascular: Regular rate/rhythm, Normal S1 S2 Musculoskeletal: No swelling Neurological: Normal speech Assessment And Plan Assessment: -Diabetic foot ulcer -Right foot cellulitis -Diabetes type 2 -Hypertension -Hyperlipidemia -Staph aureus bacteremia -Osteomyelitis of right foot toes. -Metabolic acidemia-improving. Plan: Patient has been evaluated by podiatry and ID. Osteomyelitis evidence reviewed and discussion about management plan had with patient. There is plan to have toe saving measures with hyperbaric oxygen and appropriate wound care as per ID and podiatry agreement. Continue present care with IV antibiotic of Cipro and cefazolin. Will have wound culture evaluated and also repeat blood cultures result reviewed for evaluation of clearance of staph aureus bacteremia. Bicarb level better after serum bicarbonate started for metabolic acidemia. Monitor labs daily. Will continue patient on diabetic diet.
--- NOTE | 2021-11-23 08:13 | P.PN ---
Date of Service: 11/22/21 Subjective Subjective: Patient denies any new complaints. Symptoms are stable. Arrange for LTAC placement with the assistance of infectious disease. Physical Examination - Vital Signs reviewed - Physical Exam General: Alert, Oriented x3 Respiratory: Normal air movement Cardiovascular: Regular rate/rhythm, Normal S1 S2 Musculoskeletal: No swelling Neurological: Normal speech Assessment And Plan Assessment: -Diabetic foot ulcer -Right foot cellulitis -Diabetes type 2 -Hypertension -Hyperlipidemia -Staph aureus bacteremia -Osteomyelitis of right foot toes. -Metabolic acidemia-improving. Plan: Transfer to LTAC if accepted versus [facility] bed Osteomyelitis -plan to have toe saving measures with hyperbaric oxygen and appropriate wound care as per ID and podiatry agreement. Continue present care with IV antibiotic of Cipro and cefazolin. Will have wound culture evaluated and also repeat blood cultures result reviewed for evaluation of clearance of staph aureus bacteremia. Bicarb level better after serum bicarbonate started for metabolic acidemia. Monitor labs daily. Will continue patient on diabetic diet.
--- NOTE | 2021-11-23 08:19 | ECHO ---
HEIGHT: 5 ft 11 in WEIGHT: 216 lb 0 oz DATE OF STUDY: 11/22/[address]: Marimar Glasgow 2-DIMENSIONAL: YES M.MODE: YES DOPPLER: YES COLOR FLOW: YES TDS: PORTABLE: YES DEFINITY: BUBBLE STUDY: DIAGNOSIS: RULE OUT ENDOCARDITIS CARDIAC HISTORY: CATHERIZATION: NO SURGERY: NO PROSTHETIC VALVE: NO PACEMAKER: NO MEASUREMENTS (cm) DIASTOLIC (NORMALS) SYSTOLIC (NORMALS) IVSd 1.1 (0.6-1.2) LA Diam 2.3 (1.9-4.0) LVEF 76% LVIDd 3.5 (3.5-5.7) LVIDs 2.0 (2.0-3.5) %FS 44% LVPWd 1.2 (0.6-1.2) Ao Diam 2.8 (2.0-3.7) 2 DIMENSIONAL ASSESSMENT: RIGHT ATRIUM: NORMAL LEFT ATRIUM: NORMAL RIGHT VENTRICLE: NORMAL LEFT VENTRICLE: NORMAL TRICUSPID VALVE: NORMAL MITRAL VALVE: NORMAL PULMONIC VALVE: NORMAL AORTIC VALVE: NORMAL PERICARDIAL EFFUSION: NONE AORTIC ROOT: NORMAL LEFT VENTRICULAR WALL MOTION: NORMAL DOPPLER/COLOR FLOW: MILD TRICUSPID REGURGITATION COMMENTS: SMALL PERICARDIAL EFFUSION. NORMAL LEFT VENTRICULAR SIZE AND FUNCTION. NO WALL MOTION ABNORMALITY. TECHNOLOGIST: MIGUEL CHAKRABORTY
[2021-11-23] MEDS: CIPROFLOXACIN 400mg IV 400 MG/200 ML BAG IV SCH ×2 (08:33→20:00)
[2021-11-23] MEDS: INSULIN -REGULAR HUMAN 50 UNIT/0.5 ML ML SQ SCH ×4 (08:33→21:44)
[2021-11-23] MEDS: SODIUM BICARB 325 MG TAB PO SCH ×3 (08:33→20:00)
[2021-11-23] MEDS: HEPARIN 5000 UNIT/ML 1 ML VIAL SQ SCH ×2 (08:34→21:00)
--- NOTE | 2021-11-23 11:13 | P.PN ---
Subjective Date of Service: 11/23/21 Chief Complaint: Right foot wound that has progressed to osteomyelitis. Patient seen and examined at bedside, pending transfer to [facility]. Review of Systems 10-point ROS is otherwise unremarkable Physical Examination - Vital Signs Temperature: 97.4 F Blood Pressure: 139/71 Pulse: 92 Respirations: 16 Pulse Ox (%): 100 - Studies Laboratory Last Values WBC 8.2 K/uL (4.3-10.9) 11/15/21 15:20 RBC 3.35 M/uL (3.86-4.86) L 11/15/21 15:20 Hgb 10.1 g/dL (12.0-15.0) L 11/15/21 15:20 Hct 32.2 % (36.0-45.0) L 11/15/21 15:20 MCV 96.1 fL (80-100) 11/15/21 15:20 MCH 30.2 pg (27.0-35.0) 11/15/21 15:20 MCHC 31.4 g/dL (32.0-36.0) L 11/15/21 15:20 RDW 14.4 % (12.1-15.2) 11/15/21 15:20 Plt Count 324 K/uL (152-406) 11/15/21 15:20 MPV 8.6 fL (7.6-11.3) 11/15/21 15:20 Neutrophils % 81.3 % (41.7-73.7) H 11/15/21 15:20 Lymphocytes % 13.1 % (15.3-44.8) L 11/15/21 15:20 Monocytes % 3.8 % (3.3-12.3) 11/15/21 15:20 Eosinophils % 1.2 % (0-4.4) 11/15/21 15:20 Basophils % 0.6 % (0-1.3) 11/15/21 15:20 Absolute Neutrophils 6.6 K/uL (1.8-8.0) 11/15/21 15:20 Absolute Lymphocytes 1.1 K/uL (0.7-4.9) 11/15/21 15:20 Absolute Monocytes 0.3 K/uL (0.1-1.3) 11/15/21 15:20 Absolute Eosinophils 0.1 K/uL (0-0.5) 11/15/21 15:20 Absolute Basophils 0.0 K/uL (0-0.5) 11/15/21 15:20 ESR Westergren > 140 mm/HR (0-30) H 11/15/21 15:20 PT 11.8 SECONDS (9.5-12.5) 11/15/21 15:20 INR 1.07 11/15/21 15:20 APTT 38.0 SECONDS (24.3-36.9) H 11/15/21 15:20 Sodium 140 mmol/L (136-145) 11/15/21 15:20 Potassium 3.8 mmol/L (3.5-5.1) 11/15/21 15:20 Chloride 116 mmol/L (98-107) H 11/15/21 15:20 Carbon Dioxide 19 mmol/L (21-32) L 11/15/21 15:20 Anion Gap 8.8 mEq/L (5.0-15.0) 11/15/21 15:20 BUN 15 mg/dL (7-18) 11/15/21 15:20 Creatinine 1.24 mg/dL (0.55-1.3) 11/15/21 15:20 Est GFR (CKD-EPI) 50 ml/min (=/>90) L 11/15/21 15:20 Glucose 213 mg/dL (74-106) H 11/15/21 15:20 Lactic Acid 0.8 mmol/L (0.4-2.0) 11/15/21 15:20 Calcium 8.6 mg/dL (8.5-10.1) 11/15/21 15:20 Total Bilirubin 0.2 mg/dL (0.2-1.0) 11/15/21 15:20 AST 21 U/L (15-37) 11/15/21 15:20 ALT 24 U/L (12-78) 11/15/21 15:20 Alkaline Phosphatase 102 U/L (45-117) 11/15/21 15:20 C-Reactive Protein 18.00 mg/L (<3.00) H 11/15/21 15:20 Serum Total Protein 7.8 g/dL (6.4-8.2) 11/15/21 15:20 Albumin 2.6 g/dL (3.4-5.0) L 11/15/21 15:20 Globulin 5.2 g/dL (2.3-3.5) H 11/15/21 15:20 Albumin/Globulin Ratio 0.5 (1.1-1.8) L 11/15/21 15:20 Assessment And Plan - Plan physical Exam: General: Alert, In no apparent distress, Obese HEENT: Atraumatic Neck: Supple Respiratory: Clear to auscultation bilaterally, Normal air movement Cardiovascular: No edema, Normal pulses Gastrointestinal: Normal bowel sounds, Soft and benign Integumentary: Other (Right great hallux diabetic foot ulcer) Antibiotics: Cefazolin: urrent Ciprofloxacin: 11/18current Assessment/plan Right foot diabetic ulcer with osteomyelitis MRI showed osteomyelitis of the first proximal and first distal phalanx with pathological avulsion fracture of the first proximal phalanx. Wound care per podiatry Wound cultures grew Morganella morganii and methicillin susceptible staph. Recommend continuing cefazolin and ciprofloxacin at this time. Patient will need 6 weeks of IV antibiotic therapy. Recommend PICC line placement. -Recommend transfer to [facility] for long-term IV antibiotic treatment and hyperbaric oxygen therapy Gram-positive bacteremia Blood cultures obtained on 11/12 grew staph aureus, methicillin susceptible in 4 out of 4 bottles. Repeat cultures obtained on 11/18 showed no growth Recommend continuing cefazolin at this time. Echocardiogram negative for acute vegetation CKD stage III A Continue to monitor creatinine. Renally dose all antibiotics. Diabetes Continue sliding scale insulin. Strict glucose monitoring needed for proper infection control/wound healing. Plan of care discussed Dr. Harrington Need for consultation Physician Review: Patient Assessed, Agree with Above Assessment and Plan
--- NOTE | 2021-11-23 12:48 | RAD REPORT ---
EXAM DESCRIPTION: RAD - Chest Single View - 11/23/2021 3:51 am CLINICAL HISTORY: The patient is 61 years old and is Female; PICC line done TECHNIQUE: Single view of the chest. COMPARISON: No relevant prior studies available. FINDINGS: Lungs: Left lower lobe consolidation or atelectasis. No pulmonary vascular congestion. Pleural space: Unremarkable. No pneumothorax. Heart: The cardiac silhouette is enlarged versus artifact of AP technique. Mediastinum: Unremarkable. Bones/joints: No acute fracture visualized. Tubes, lines and devices: Right PICC line is in the SVC. Upper abdomen: No free air in the visualized upper abdomen. IMPRESSION: 1. Right PICC line is in the SVC. 2. Left lower lobe consolidation or atelectasis. Electronically signed by: Lindsay Dave MD 11/23/2021 4:11 AM CDT Due to temporary technical issues with the PACS/Fluency reporting system, reports are being signed by the in house radiologist without review as a courtesy to ensure prompt reporting. The interpreting r adiologist is fully responsible for the content of the report.
[2021-11-24] MEDS: CEFAZOLIN SODIUM 2 GM in NA CHLORIDE 0.9% 100 ML IVPB SCH ×2 (03:11→11:50)
[2021-11-24 06:33] LABS: Hematocrit 28.8 % (36.0-45.0); Lymphocytes % 17.5 % (15.3-44.8); MCV 96.1 fL (80-100); MPV 9.5 fL (7.6-11.3)
[2021-11-24 06:55] LABS: Albumin 2.6 g/dL (3.4-5.0); Bilirubin Total 0.2 mg/dL (0.2-1.0); Magnesium 2.2 mg/dL (1.8-2.4); Potassium 3.8 mmol/L (3.5-5.1); Protein, Total 6.7 g/dL (6.4-8.2)
--- NOTE | 2021-11-24 07:19 | P.PN ---
Date of Service: 11/23/21 Subjective Subjective: Patient clinically doing better. Continue with wound care. Awaiting for possible transfer to LTAC Physical Examination - Vital Signs reviewed - Physical Exam General: Alert, Oriented x3 Respiratory: Normal air movement Cardiovascular: Regular rate/rhythm, Normal S1 S2 Musculoskeletal: No swelling Neurological: Normal speech Assessment And Plan Assessment: -Diabetic foot ulcer -Right foot cellulitis -Diabetes type 2 -Hypertension -Hyperlipidemia -Staph aureus bacteremia -Osteomyelitis of right foot toes. -Metabolic acidemia-improving. Plan: Patient accepted to LTAC and will transfer in a.m. Osteomyelitis evidence reviewed and discussion about management plan had with patient. Continue with antibiotics and will get hyperbarics at LTAC There is plan to have toe saving measures with hyperbaric oxygen and appropriate wound care as per ID and podiatry agreement. Continue present care with IV antibiotic of Cipro and cefazolin. Will have wound culture evaluated and also repeat blood cultures result reviewed for evaluation of clearance of staph aureus bacteremia. Bicarb level better after serum bicarbonate started for metabolic acidemia. Monitor labs daily. Will continue patient on diabetic diet.
[2021-11-24] MEDS: CIPROFLOXACIN 400mg IV 400 MG/200 ML BAG IV SCH (07:38)
[2021-11-24] MEDS: SODIUM BICARB 325 MG TAB PO SCH (07:39)
[2021-11-24] MEDS: HEPARIN 5000 UNIT/ML 1 ML VIAL SQ SCH (07:39)
[2021-11-24] MEDS: INSULIN -REGULAR HUMAN 50 UNIT/0.5 ML ML SQ SCH ×2 (08:14→13:04)
[2021-11-24 13:07] VITALS: BP 144/70; TEMP 97
[2021-11-30 14:35] LABS: Urine Blood Negative (Negative); Urine Glucose Negative (Negative); Urine Protein 1+ (Negative)
--- NOTE | 2021-12-11 16:07 | P.DS ---
Discharge Date: 11/24/21 Disposition: [facility] Discharge Condition: GOOD Reason for Admission: Right foot wound that has progressed to osteomyelitis. Brief History of Present Illness: Patient is a 61-year-old female With a past medical history significant for DM 2, hypertension, foot wound who presents with complaint of right great toe wound. Patient reports that she follows up with her rehabilitation clerk biweekly for her left foot wound. Patient indicated that 8 days ago she bumped her right great toe into a dresser at home. 3 days later she started noticing serosanguineous drainage from the right great toe. Patient reports pain to the right foot rated as 3/10 in severity and described as dull in quality. Patient denies any other signs or symptoms. Patient reports associated signs and symptoms of redness in the lower extremity, mild swelling in the foot. Symptoms are aggravated or relieved by nothing. Patient followed up with her rehabilitation clerk today and was referred to come to the hospital for a higher level of care Hospital Course: Patient was placed on 6 weeks of IV antibiotics. Patient had wound care. Patient was transferred to long-term acute care hospital. Patient to get hyperbarics and hopefully we can save the toe. At this time, patient is stable for discharge to LTAC facility. Vital Signs/Physical Exam: Temp Pulse Resp BP Pulse Ox 97 F 80 18 144/70 H 97 11/24/21 12:00 11/24/21 12:00 11/24/21 12:00 11/24/21 12:00 11/24/21 12:00 General: Alert, In no apparent distress, Oriented x3 Laboratory Data at Discharge: WBC 5.6 K/uL (4.3-10.9) 11/24/21 06:10 Hgb 9.5 g/dL (12.0-15.0) L 11/24/21 06:10 Hct 28.8 % (36.0-45.0) L 11/24/21 06:10 Plt Count 185 K/uL (152-406) 11/24/21 06:10 PT 11.8 SECONDS (9.5-12.5) 11/15/21 15:20 INR 1.07 11/15/21 15:20 APTT 38.0 SECONDS (24.3-36.9) H 11/15/21 15:20 Sodium 137 mmol/L (136-145) 11/24/21 06:10 Potassium 3.8 mmol/L (3.5-5.1) 11/24/21 06:10 BUN 20 mg/dL (7-18) H 11/24/21 06:10 Creatinine 1.13 mg/dL (0.55-1.3) 11/24/21 06:10 Glucose 317 mg/dL (74-106) H 11/24/21 06:10 Phosphorus 2.5 mg/dL (2.5-4.9) 11/16/21 04:25 Magnesium 2.2 mg/dL (1.8-2.4) 11/24/21 06:10 Total Bilirubin 0.2 mg/dL (0.2-1.0) 11/24/21 06:10 AST 40 U/L (15-37) H 11/24/21 06:10 ALT 27 U/L (12-78) 11/24/21 06:10 Alkaline Phosphatase 96 U/L (45-117) 11/24/21 06:10 Home Medications: Amlodipine Besylate 1 tab PO DAILY 11/15/21 Atorvastatin Calcium 20 mg PO DAILY 11/15/21 Bimatoprost [Lumigan Opthalmic Drops*] 1 drop EACH EYE BEDTIME 11/15/21 Brimonidine Tartrate/Timolol [Brimonidine-Timolol 0.2%-0.5%] 1 drop EACH EYE BID 11/15/21 Dorzolamide HCl/Pf [Dorzolamide 2% Eye Drop] 1 drop LEFT EYE BID 11/15/21 Fluticasone Propionate [Flovent Diskus] 1 spray ROLANDO DAILY 11/15/21 Fluticasone/Salmeterol [Advair Hfa 230-21 Mcg Inhaler] 2 puff PO BID 11/15/21 Nebivolol HCl 1 tab PO DAILY 11/15/21 PARoxetine HCL [Paxil*] 1 tab PO DAILY 11/15/21 Pantoprazole [Protonix Tab*] 1 tab PO DAILY 11/15/21 acetaZOLAMIDE [Acetazolamide] 1 tab PO BID 11/15/21 Physician Discharge Instructions: -DC to LTAC -Follow-up with wound care and infectious disease consult -Follow-up with physical therapy -Please call Dr. Soto at [phone] if any questions regarding hospital stay -Please call nursing station at [phone] if any nursing or medication questions -Return to the emergency room if symptoms worsen Diet: AHA Activity: Weight bearing as tolerated Followup: DARA DUKES [Primary Care Provider] - 1-2 Weeks (Call to schedule an appointment) Time spent managing pt's care (in minutes): 55
== END 2021-11-24 13:35 | DRG 638 ==
LOC: ER 13:29 → ERHOLD 17:21 → 4TH 20:47
PROVIDERS: ADMIT Internal Medicine Nephrology; ATTEND Internal Medicine Nephrology
PROC: 02HV33Z Insertion of Infusion Device into Superior Vena Cava, Percutaneous Approach (ICD-10-PCS; principal; 2021-11-23)
PROC: 3E04329 Introduction of Other Anti-infective into Central Vein, Percutaneous Approach (ICD-10-PCS; 2021-11-23)
DX: E11.69 Type 2 diabetes mellitus with other specified complication (principal); R78.81 Bacteremia; M86.171 Other acute osteomyelitis, right ankle and foot; L03.115 Cellulitis of right lower limb; E87.2 Acidosis; M84.474A Pathological fracture, right foot, initial encounter for fracture; L97.516 Non-pressure chronic ulcer of other part of right foot with bone involvement without evidence of necrosis; E66.9 Obesity, unspecified; Z68.30 Body mass index [BMI] 30.0-30.9, adult; I12.9 Hypertensive chronic kidney disease with stage 1 through stage 4 chronic kidney disease, or unspecified chronic kidney disease; E11.22 Type 2 diabetes mellitus with diabetic chronic kidney disease; N18.31 Chronic kidney disease, stage 3a; E78.5 Hyperlipidemia, unspecified; B95.61 Methicillin susceptible Staphylococcus aureus infection as the cause of diseases classified elsewhere; E11.40 Type 2 diabetes mellitus with diabetic neuropathy, unspecified; B96.89 Other specified bacterial agents as the cause of diseases classified elsewhere; E11.621 Type 2 diabetes mellitus with foot ulcer; Z20.822 Contact with and (suspected) exposure to COVID-19
CPT/HCPCS: 36415; 36569; 71045; 80048; 80053; 80202; 81003; 81015; 82010; 82805; 82947; 83525; 83605; 83735; 84100; 85025; 85610; 85652; 85730; 86140; 87040; 87070; 87077; 87086; 87088; 87186; 87205; 93005; 93306; 93970; 99285; J0690; J0692; J0744; J1644; J1815; J3370; J7040; J7050; U0003

== ENCOUNTER 2022-01-04 21:09 | Emergency (ER) | payer OTHER ==
--- NOTE | 2022-01-04 22:02 | RAD REPORT ---
EXAM DESCRIPTION: RAD - Chest Single View - 01/04/2022 9:55 pm CLINICAL HISTORY: weakness Chest pain. COMPARISON: Chest Single View dated 11/23/2021; CHEST SINGLE VIEW dated 03/08/2010; CHEST SINGLE VIEW dated 03/05/2010; CHEST PA AND LAT 2 VIEW dated 07/21/2009 FINDINGS: Portable technique limits examination quality. The lungs are grossly clear. The heart is mildly enlarged in size. No displaced fractures.
[2022-01-04 22:38] LABS: Absolute Lymphocytes (CBC) 0.8 K/uL (0.7-4.9); Hematocrit 35.6 % (36.0-45.0); Lymphocytes % 8.1 % (15.3-44.8); MCV 98.7 fL (80-100); MPV 9.6 fL (7.6-11.3)
[2022-01-04 22:52] LABS: Potassium 4.5 mmol/L (3.5-5.1); Troponin High Sensitivity 11.5 pg/mL (<58.9)
--- NOTE | 2022-01-05 01:00 | ER ---
Nurse's Notes [facility] Name: Nedra Luis Age: 61 yrs Sex: Female : 1960 Arrival Date: 01/04/2022 Time: 21:22 Bed 17 Private MD: Diagnosis: Other hypoglycemia;Hypoglycemia, unspecified;Weakness Presentation: 01/04 21:22 Chief complaint: EMS states: pt had a blood sugar of 30 at home. pt took her insulin sm5 before dinner and said her BG was in the 150's. 3 oral glucose tabs given by ems. Coronavirus screen: Vaccine status: Patient reports receiving the 2nd dose of the covid vaccine. Ebola Screen: No symptoms or risks identified at this time. Initial Sepsis Screen: Does the patient meet any 2 criteria? No. Patient's initial sepsis screen is negative. Does the patient have a suspected source of infection? No. Patient's initial sepsis screen is negative. Risk Assessment: Do you want to hurt yourself or someone else? Patient reports no desire to harm self or others. Onset of symptoms was January 04, 2022. 21:22 Method Of Arrival: EMS: [facility] 5 21:22 Acuity: EDEL 3 5 Triage Assessment: 21:23 General: Appears in no apparent distress. Behavior is cooperative. Pain: Denies pain. sm5 Neuro: Level of Consciousness is awake, alert, obeys commands, Oriented to person, place, time, situation. Cardiovascular: Capillary refill < 3 seconds Patient's skin is warm and dry. Respiratory: Airway is patent Trachea midline Respiratory effort is even, unlabored. Historical: - Allergies: 21:23 Hydrocodone-Acetaminophen; sm5 21:23 Hydrocortisone; sm5 - Home Meds: 21:23 Tresiba FlexTouch U-100 subcutaneous [Active]; sm5 - PMHx: 21:23 diabetes mellitus; Hypertensive disorder; sm5 - Immunization history:: Client reports receiving the 2nd dose of the Covid vaccine. - Social history:: Smoking status: Patient denies any tobacco usage or history of. Patient/guardian denies using alcohol. Screenin:24 Abuse screen: Denies threats or abuse. Denies injuries from another. Nutritional sm5 screening: No deficits noted. Tuberculosis screening: No symptoms or risk factors identified. Fall Risk None identified. Assessment: 21:30 Reassessment: see triage assessment. sm5 23:16 Reassessment: No changes from previously documented assessment. Patient and/or family sm5 updated on plan of care and expected duration. Pain level reassessed. 01/05 01:25 Reassessment: Patient and/or family updated on plan of care and expected duration. Pain sm5 level reassessed. Patient is alert, oriented x 3, equal unlabored respirations, skin warm/dry/pink. Vital Signs: 01/04 21:22 BP 114 / 62; Pulse 70; Resp 15; Pulse Ox 100% on R/A; Weight 97.52 kg; Height 5 ft. 7 sm5 in. (170.18 cm); Pain 0/10; 23:16 BP 126 / 67; Pulse 65; Resp 16; Pulse Ox 100% on R/A; sm5 01/05 01:00 BP 130 / 70; Pulse 66; Resp 16; Pulse Ox 100% on R/A; sm5 01/04 21:22 Body Mass Index 33.67 (97.52 kg, 170.18 cm) sm5 ED Course: 01/04 21:22 Patient arrived in ED. sm5 21:23 Triage completed. sm5 21:24 Arm band placed on right wrist. sm5 21:24 Patient has correct armband on for positive identification. Bed in low position. Call sm5 light in reach. Side rails up X2. 21:36 Ervin Lewis MD is Attending Physician. kdr 21:48 Jenny Deras RN is Primary Nurse. sm5 21:57 XRAY Chest (1 view) In Process Unspecified. EDMS 22:20 Initial lab(s) drawn, by ri, sent to lab. Inserted saline lock: 20 gauge in right bb antecubital area, using aseptic technique. Blood collected. 01/05 01:26 No provider procedures requiring assistance completed. IV discontinued, intact, sm5 bleeding controlled, No redness/swelling at site. Pressure dressing applied. Administered Medications: No medications were administered Medication: 01/04 21:24 VIS not applicable for this client. sm5 Point of Care Testing: Blood Glucose: 23:16 Blood Glucose: 280 mg/dL; sm5 Ranges: Outcome: 01/05 00:59 Discharge ordered by . kdr 01:26 Discharged to home ambulatory. sm5 01:26 Condition: stable 01:26 Discharge instructions given to patient, Instructed on discharge instructions, follow up and referral plans. Demonstrated understanding of instructions, follow-up care. 01:26 Patient left the ED. sm5 Signatures: Dispatcher [employer] EDMS Ervin Lewis MD MD [facility] Kirsten Robles RN RN Jenny Godoy RN RN 5
--- NOTE | 2022-01-05 01:00 | EDPHYS ---
Physician Documentation [facility] Name: Nedra Luis Age: 61 yrs Sex: Female : 1960 Arrival Date: 01/04/2022 Time: 21:22 Bed 17 Private MD: ED Physician Ervin Lewis HPI: 01/05 01:00 This 61 yrs old Black Female presents to ER via EMS with complaints of hypopglycemia. kdr 00:05 Patient was brought to the ED MS after she was noted to be altered at home. Fingerstick kdr revealed a blood glucose of 30. She had taken her to insulin earlier as scheduled but feels that she may not have eaten as well as she should have today. S gave her 3 oral glucose tabs after her glucose level was noted to be 30. Onset: The symptoms/episode began/occurred just prior to arrival. Severity of symptoms: At their worst the symptoms were mild in the emergency department the symptoms are unchanged. The patient has not experienced similar symptoms in the past. The patient has not recently seen a physician. Historical: - Allergies: 01/04 21:23 Hydrocodone-Acetaminophen; sm5 21:23 Hydrocortisone; sm5 - Home Meds: 21:23 Tresiba FlexTouch U-100 subcutaneous [Active]; sm5 - PMHx: 21:23 diabetes mellitus; Hypertensive disorder; sm5 - Immunization history:: Client reports receiving the 2nd dose of the Covid vaccine. - Social history:: Smoking status: Patient denies any tobacco usage or history of. Patient/guardian denies using alcohol. ROS: 01/05 00:05 Constitutional: Negative for fever, chills, and weight loss, Eyes: Negative for injury, kdr pain, redness, and discharge, Neck: Negative for injury, pain, and swelling, Cardiovascular: Negative for chest pain, palpitations, and edema, Respiratory: Negative for shortness of breath, cough, wheezing, and pleuritic chest pain, Abdomen/GI: Negative for abdominal pain, nausea, vomiting, diarrhea, and constipation, Back: Negative for injury and pain, : Negative for injury, bleeding, discharge, and swelling, MS/Extremity: Negative for injury and deformity, Skin: Negative for injury, rash, and discoloration, Psych: Negative for depression, anxiety, suicide ideation, homicidal ideation, and hallucinations, Allergy/Immunology: Negative for hives, rash, and allergies. Neuro: Positive for headache, loss of consciousness. Exam: 00:05 Constitutional: This is a well developed, well nourished patient who is awake, alert, kdr and in no acute distress. Head/Face: Normocephalic, atraumatic. Eyes: Pupils equal round and reactive to light, extra-ocular motions intact. Lids and lashes normal. Conjunctiva and sclera are non-icteric and not injected. Cornea within normal limits. Periorbital areas with no swelling, redness, or edema. Neck: Trachea midline, no thyromegaly or masses palpated, and no cervical lymphadenopathy. Supple, full range of motion without nuchal rigidity, or vertebral point tenderness. No Meningismus. Chest/axilla: Normal chest wall appearance and motion. Nontender with no deformity. No lesions are appreciated. Cardiovascular: Regular rate and rhythm with a normal S1 and S2. No gallops, murmurs, or rubs. Normal PMI, no JVD. No pulse deficits. Respiratory: Lungs have equal breath sounds bilaterally, clear to auscultation and percussion. No rales, rhonchi or wheezes noted. No increased work of breathing, no retractions or nasal flaring. Abdomen/GI: Soft, non-tender, with normal bowel sounds. No distension or tympany. No guarding or rebound. No evidence of tenderness throughout. Back: No spinal tenderness. No costovertebral tenderness. Full range of motion. Skin: Warm, dry with normal turgor. Normal color with no rashes, no lesions, and no evidence of cellulitis. MS/ Extremity: Pulses equal, no cyanosis. Neurovascular intact. Full, normal range of motion. Neuro: Awake and alert, GCS 15, oriented to person, place, time, and situation. Cranial nerves II-XII grossly intact. Motor strength 5/5 in all extremities. Sensory grossly intact. Cerebellar exam normal. Normal gait. Psych: Awake, alert, with orientation to person, place and time. Behavior, mood, and affect are within normal limits. 06:58 ECG was reviewed by the Attending Physician. kdr Vital Signs: 01/04 21:22 BP 114 / 62; Pulse 70; Resp 15; Pulse Ox 100% on R/A; Weight 97.52 kg; Height 5 ft. 7 sm5 in. (170.18 cm); Pain 0/10; 23:16 BP 126 / 67; Pulse 65; Resp 16; Pulse Ox 100% on R/A; 5 01/05 01:00 BP 130 / 70; Pulse 66; Resp 16; Pulse Ox 100% on R/A; 5 01/04 21:22 Body Mass Index 33.67 (97.52 kg, 170.18 cm) [facility] MDM: 00:05 Data reviewed: vital signs, nurses notes, lab test result(s), radiologic studies. kdr 00:59 Patient medically screened. [facility] 01/04 21:38 Order name: Basic Metabolic Panel; Complete Time: 23:08 [facility] 01/04 21:38 Order name: CBC with Diff; Complete Time: 23:08 [facility] 01/04 21:38 Order name: Troponin HS; Complete Time: 23:08 kdr 01/04 21:38 Order name: XRAY Chest (1 view); Complete Time: 22:16 [facility] 01/04 21:38 Order name: EKG; Complete Time: 21:39 kdr 01/04 23:28 Order name: Glucose, Ancillary Testing; Complete Time: 00:00 EDMS 01/04 21:38 Order name: Cardiac monitoring; Complete Time: 22:42 kdr 01/04 21:38 Order name: EKG - Nurse/Tech; Complete Time: 22:25 kdr 01/04 21:38 Order name: IV Saline Lock; Complete Time: 22:25 kdr 01/04 21:38 Order name: Labs collected and sent; Complete Time: 22:25 [facility] 01/04 21:38 Order name: O2 Per Protocol; Complete Time: 22:25 [facility] 01/04 21:38 Order name: O2 Sat Monitoring; Complete Time: 22:25 [facility] 01/04 23:08 Order name: FSBS; Complete Time: 23:16 kdr EC:58 Rate is 69 beats/min. Rhythm is regular, Sinus Rhythm with No ectopy. QRS [place] is kdr Normal. ID interval is normal. QRS interval is normal. Clinical impression: NSR w/ Non-specific ST/T Changes. Administered Medications: No medications were administered Point of Care Testing: Blood Glucose: 01/04 23:16 Blood Glucose: 280 mg/dL; [facility] Ranges: Critical Glucose Levels:Adult <50 mg/dl or >400 mg/dl <40 mg/dl or >180 mg/dl Disposition Summary: 01/05/22 00:59 Discharge Ordered Location: Home kdr Problem: new kdr Symptoms: have improved kdr Condition: Stable kdr Diagnosis - Other hypoglycemia kdr - Hypoglycemia, unspecified kdr - Weakness kdr Followup: kdr - With: Private Physician - When: 2 - 3 days - Reason: If symptoms return, Further diagnostic work-up, Recheck today's complaints, Continuance of care, Re-evaluation by your physician Discharge Instructions: - Discharge Summary Sheet kdr - Hypoglycemia kdr - Weakness kdr - Fatigue kdr Forms: - Medication Reconciliation Form kdr - Thank You Letter kdr Signatures: Dispatcher [employer] Ervin Jeter MD MD kdr Jenny Deras RN RN sm5
[2022-01-05 03:22] VITALS: O2SAT 100
[2022-01-05 03:26] VITALS: BP 130/70
--- NOTE | 2022-01-05 13:04 | EKG ---
Test Date: 2022-01-04 Test Time: 22:17:08 Perioperative Nurse: ZULAY MEASUREMENT RESULTS: Intervals: Rate: 69 WI: 208 QRSD: 98 QT: 448 QTc: 480 [place]: P: 63 WI: 208 QRS: 104 T: 29 INTERPRETIVE STATEMENTS: Normal sinus rhythm Rightward axis Prolonged QT Abnormal ECG Compared to ECG 11/15/2021 14:38:40 Prolonged QT interval now present Electronically Signed On 01-05-22 13:03:26 CDT by Adis Reynolds
== END 2022-01-05 01:26 | disposition home or self-care (01) ==
LOC: ER 21:09
DX: E11.649 Type 2 diabetes mellitus with hypoglycemia without coma (principal); R53.1 Weakness; I10 Essential (primary) hypertension; Z88.6 Allergy status to analgesic agent; Z88.5 Allergy status to narcotic agent
CPT/HCPCS: 36415; 71045; 80048; 82947; 84484; 85025; 93005; 99284

== ENCOUNTER 2022-08-09 07:30 | Emergency (ER) | payer OTHER ==
[2022-08-09 08:35] LABS: Absolute Lymphocytes (CBC) 0.6 K/uL (0.7-4.9); Hematocrit 26.6 % (36.0-45.0); Lymphocytes % 4.7 % (15.3-44.8); MCV 94.6 fL (80-100); MPV 8.3 fL (7.6-11.3); RBC Red Blood Cell Count 2.82 M/uL (3.86-4.86)
[2022-08-09] MEDS ORDERED: NA CHLORIDE 0.9% 1,000 ML ONE (09:12)
[2022-08-09] MEDS ORDERED: ONDANSETRON 4 MG/2 ML VIAL ONE (09:13)
[2022-08-09] MEDS ORDERED: FENTANYL CITR 100 MCG/2 ML ONE (09:13)
[2022-08-09] MEDS ORDERED: KETOROLAC 30 MG/ML INJ ONE (09:14)
--- NOTE | 2022-08-09 09:15 | RAD REPORT ---
EXAM DESCRIPTION: CTSpine Lumbar Wo Con08/09/2022 8:43 am CLINICAL HISTORY: Back pain and radiculopathy COMPARISON: None TECHNIQUE: Computed axial tomography lumbar spine was obtained with coronal and sagittal reconstruct ion. All CT scans are performed using dose optimization technique as appropriate and may include automated exposure control or mA/KV adjustment according to patient size. 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 Sclerosis involves the inferio r vertebral endplate of L3. Destructive lesion involves the right posterior elements L4. Right neural foramina likely involved Destructive lesion involves of the right posterior aspect of the L5 vertebral body extending into the right posterior elements L5. The mass extends into the right neural foramina and right lateral aspec t of the spinal canal. Cortical irregularity involves the L5-S1 disc with prominent sclerosis L5 vert ebral endplate. . Small lucency within the anterior aspect of the S1 vertebral body likely additional destruction. Spondylolysis L5 with mild anterior subluxation L5 on S1 IMPRESSION: Destructive lesions involving L4, L5 and S1. This all may be neoplastic. Infection is a another consideration but probably less likely. This all should be correlated clinically with appropr iate lab values. MRI of the spine with contrast may be helpful for further evaluation
[2022-08-09] MEDS ORDERED: DIAZEPAM 5 MG TABLET ONE (09:30)
[2022-08-09 09:47] LABS: Albumin 2.8 g/dL (3.4-5.0); Bilirubin Total 0.3 mg/dL (0.2-1.0); Potassium 3.9 mmol/L (3.5-5.1)
[2022-08-09 09:48] LABS: Platelet Estimate ADEQ; White Blood Cell Scan OK (OK)
[2022-08-09 09:49] LABS: Anisocytosis SLIGHT; Blood Morphology Comment NOTED (NOT SEEN)
--- NOTE | 2022-08-09 09:53 | EDPHYS ---
Physician Documentation [facility] Name: Nedra Luis Age: 62 yrs Sex: Female : 1960 Arrival Date: 08/09/2022 Time: 07:32 Bed 12 Private MD: AXEL Physician Tommy Kidd HPI: 08/09 08:16 This 62 yrs old Black Female presents to ER via Wheelchair with complaints of Back Pain.sindhu 08:16 The patient presents with pain that is acute, with no known mechanism of injury. The sindhu symptoms are located in the low back. Onset: The symptoms/episode began/occurred 3 day(s) ago. The pain does not radiate. Associated signs and symptoms: The patient has no apparent associated signs or symptoms. The problem was sustained from unknown cause. Modifying factors: The patient symptoms are alleviated by nothing, the patient symptoms are aggravated by standing, walking. Severity of symptoms: At their worst the symptoms were mild, in the emergency department the symptoms are unchanged. The patient has experienced similar episodes in the past, several times. Historical: - Allergies: 07:40 Hydrocodone-Acetaminophen; ss 07:40 Hydrocortisone; ss - Home Meds: 07:40 Pt is unsure what she takes at this time. [Active]; ss - PMHx: 07:40 diabetes mellitus; Hypertensive disorder; ss - PSHx: 07:40 Toe amputation; R lumpectomy; ss - Immunization history:: Client reports receiving the 2nd dose of the Covid vaccine. - Social history:: Smoking status: Patient denies any tobacco usage or history of. - Family history:: not pertinent. ROS: 08:16 Constitutional: Negative for fever, chills, and weight loss, Eyes: Negative for injury, sindhu pain, redness, and discharge, ENT: Negative for injury, pain, and discharge, Neck: Negative for injury, pain, and swelling, Cardiovascular: Negative for chest pain, palpitations, and edema, Respiratory: Negative for shortness of breath, cough, wheezing, and pleuritic chest pain, Abdomen/GI: Negative for abdominal pain, nausea, vomiting, diarrhea, and constipation, : Negative for injury, bleeding, discharge, and swelling, MS/Extremity: Negative for injury and deformity, Skin: Negative for injury, rash, and discoloration, Neuro: Negative for headache, weakness, numbness, tingling, and seizure, Psych: Negative for depression, anxiety, suicide ideation, homicidal ideation, and hallucinations, Allergy/Immunology: Negative for hives, rash, and allergies, Endocrine: Negative for neck swelling, polydipsia, polyuria, polyphagia, and marked weight changes, Hematologic/Lymphatic: Negative for swollen nodes, abnormal bleeding, and unusual bruising. 08:16 Back: Positive for decreased range of motion, pain at rest. Exam: 08:16 Constitutional: This is a well developed, well nourished patient who is awake, alert, sindhu and in no acute distress. Head/Face: Normocephalic, atraumatic. Eyes: Pupils equal round and reactive to light, extra-ocular motions intact. Lids and lashes normal. Conjunctiva and sclera are non-icteric and not injected. Cornea within normal limits. Periorbital areas with no swelling, redness, or edema. ENT: Nares patent. No nasal discharge, no septal abnormalities noted. Tympanic membranes are normal and external auditory canals are clear. Oropharynx with no redness, swelling, or masses, exudates, or evidence of obstruction, uvula midline. Mucous membranes moist. Neck: Trachea midline, no thyromegaly or masses palpated, and no cervical lymphadenopathy. Supple, full range of motion without nuchal rigidity, or vertebral point tenderness. No Meningismus. Chest/axilla: Normal chest wall appearance and motion. Nontender with no deformity. No lesions are appreciated. Cardiovascular: Regular rate and rhythm with a normal S1 and S2. No gallops, murmurs, or rubs. Normal PMI, no JVD. No pulse deficits. Respiratory: Lungs have equal breath sounds bilaterally, clear to auscultation and percussion. No rales, rhonchi or wheezes noted. No increased work of breathing, no retractions or nasal flaring. Abdomen/GI: Soft, non-tender, with normal bowel sounds. No distension or tympany. No guarding or rebound. No evidence of tenderness throughout. Female : Normal external genitalia. Skin: Warm, dry with normal turgor. Normal color with no rashes, no lesions, and no evidence of cellulitis. MS/ Extremity: Pulses equal, no cyanosis. Neurovascular intact. Full, normal range of motion. Neuro: Awake and alert, GCS 15, oriented to person, place, time, and situation. Cranial nerves II-XII grossly intact. Motor strength 5/5 in all extremities. Sensory grossly intact. Cerebellar exam normal. Normal gait. Psych: Awake, alert, with orientation to person, place and time. Behavior, mood, and affect are within normal limits. 08:16 Back: pain, that is very mild, that is mild, that is moderate, ROM is painful, with all movement, normal spinal alignment noted, CVA tenderness, is absent, vertebral tenderness, is not appreciated, muscle spasm, is appreciated in the left low back, left mid back, right mid back and right low back. Vital Signs: 07:37 BP 142 / 62; Pulse 106; Resp 16; Temp 97.9(TE); Pulse Ox 100% on R/A; Height 5 ft. 11 ss in. (180.34 cm); Pain 9/10; 07:49 Weight 92.08 kg; ss 10:57 BP 166 / 83; Pulse 78; Resp 16; Temp 98.6; Pulse Ox 100% ; kb3 11:54 BP 122 / 58; Pulse 81; Resp 13; Pulse Ox 100% on R/A; Pain 0/10; ss 07:49 Body Mass Index 28.31 (92.08 kg, 180.34 cm) ss [place] Coma Score: 10:51 Eye Response: spontaneous(4). Verbal Response: oriented(5). Motor Response: obeys sindhu commands(6). Total: 15. MDM: 07:33 Patient medically screened. sindhu 08:19 Differential diagnosis: chronic back pain, Fatigue Fracture Hydronephrosis Neoplasm sindhu Obesity Osteoporosis Scoliosis spinal injury, sprain. Data reviewed: vital signs, nurses notes, lab test result(s), radiologic studies. Consideration of Admission/Observation Escalation of care including admission/observation considered. I considered the following discharge prescriptions or medication management in the emergency department Medications were administered in the Emergency Department. See MAR. Test considered but Not performed: MRI: mri lumbar. Care significantly affected by the following chronic conditions: Diabetes, Hypertension, Obesity. 10:51 ED course: dr shelbie soares, neurosurgery. [facility] 08/09 07:35 Order name: CBC with Diff sindhu 08/09 07:35 Order name: Comprehensive Metabolic Panel; Complete Time: 09:54 [facility] 08/09 07:35 Order name: CT Lumbar Spine Wo Con [facility] 08/09 08:42 Order name: Labs - recollect needed: recollect light green; Complete Time: 09:21 bd 08/09 08:46 Order name: CBC with Automated Diff; Complete Time: 09:54 EDMS 08/09 09:08 Order name: Spine Lumbar Wo Con; Complete Time: 09:16 EDMS 08/09 09:43 Order name: Chest Single View XRAY sindhu 08/09 09:43 Order name: Lumbar Spine Wo Con EDMS 08/09 09:49 Order name: CBC Smear Scan; Complete Time: 09:54 EDMS Administered Medications: 08:42 CANCELLED (Duplicate Order): fentaNYL (PF) 50 mcg IVP once sindhu 09:21 Drug: NS 0.9% 500 ml Route: IV; Rate: bolus; Site: left antecubital; [facility] 10:30 Follow up: IV Status: Completed infusion; IV Intake: 500ml ss 09:21 Drug: Zofran (Ondansetron) 4 mg Route: IVP; Site: left antecubital; [facility] 09:21 Drug: Ketorolac 30 mg Route: IVP; Site: left antecubital; [facility] 09:21 Drug: fentaNYL (PF) 25 mcg Route: IVP; Site: left antecubital; [facility] 09:21 Drug: fentaNYL (PF) 25 mcg Route: IVP; Site: left antecubital; [facility] 09:30 Drug: Valium (diazepam) 10 mg Route: PO; 5 Disposition Summary: 08/09/22 09:53 Transfer Ordered Reason: Higher level of care sindhu Condition: Fair sindhu Problem: new sindhu Symptoms: have improved sindhu Transfer Location: [facility](08/09/22 10:50) sindhu Accepting Physician: to [facility](08/09/22 13:33) 5 Diagnosis - Type 2 diabetes mellitus with hyperglycemia sindhu - Low back pain - intractable sindhu - Malignant neoplasm of connective and soft tissue, unspecified - MASS WITH sindhu DESTRUCTION L4, L5, S1 - Anemia in neoplastic disease sindhu - Anemia, unspecified sindhu - Unspecified kidney failure - INSUFFICENCY sindhu Discharge Instructions: - Discharge Summary Sheet sindhu - Acute Back Pain, Adult sindhu - Chronic Back Pain sindhu - Hypertension, Adult sindhu - Hypertension, Adult, Wtko-ty-Dejx sindhu - Chronic Back Pain, Jyyo-xk-Iujv sindhu - Diabetes Mellitus and Nutrition, Adult sindhu - How to Take Your Blood Pressure, Fcea-bm-Tsuz sindhu - Managing Your Hypertension sindhu Forms: - Medication Reconciliation Form sindhu - SBAR form [facility] Prescriptions: - Ibuprofen 600 mg Oral Tablet - take 1 tablet by ORAL route every 8 hours As needed take with food; 21 tablet; sindhu Refills: 0, Product Selection Permitted - Valium 2 mg Oral Tablet - take 1 tablet by ORAL route every 8 hours As needed; 20 tablet; Refills: 0, [facility] Product Selection Permitted Signatures: Dispatcher [employer] Marce Hill Corey, MD MD cha Smirch, Shelby RN RN Denise Valdez RN RN 5 Corrections: (The following items were deleted from the chart) 08:42 07:49 fentaNYL (PF) 50 mcg IVP once ordered. [facility] 09:55 09:53 to [facility] 10:50 09:53 [facility] 10:50 09:55 to [facility] 13:33 10:50 to [place] [id number]
--- NOTE | 2022-08-09 09:53 | ER ---
Nurse's Notes [facility] Name: Nedra Luis Age: 62 yrs Sex: Female : 1960 Arrival Date: 08/09/2022 Time: 07:32 Bed 12 Private MD: Diagnosis: Type 2 diabetes mellitus with hyperglycemia;Low back pain-intractable;Malignant neoplasm of connective and soft tissue, unspecified-MASS WITH DESTRUCTION L4, L5, S1;Anemia in neoplastic disease;Anemia, unspecified;Unspecified kidney failure-INSUFFICENCY Presentation: 08/09 07:37 Chief complaint: Patient states: R low back pain that has began 1 month ago. Pt was ss given an antibiotic by her PCP for a UTI and vaginal infection, "and something else", but states she was not able to go back for follow up. Coronavirus screen: Client denies travel out of the [place] in the last 14 days. Ebola Screen: Patient denies exposure to infectious person. Patient denies travel to an Ebola-affected area in the 21 days before illness onset. Initial Sepsis Screen: Does the patient meet any 2 criteria? No. Patient's initial sepsis screen is negative. Does the patient have a suspected source of infection? No. Patient's initial sepsis screen is negative. Risk Assessment: Do you want to hurt yourself or someone else? Patient reports no desire to harm self or others. Onset of symptoms was June 2022. 07:37 Method Of Arrival: Wheelchair ss 07:37 Acuity: EDEL 3 ss Triage Assessment: 11:37 General: Appears in no apparent distress. uncomfortable, well groomed, well developed, jh5 Behavior is calm, cooperative, appropriate for age. Pain: Complains of pain in back. Musculoskeletal: Circulation, motion, and sensation intact. Capillary refill < 3 seconds, Range of motion: intact in all extremities. Historical: - Allergies: 07:40 Hydrocodone-Acetaminophen; ss 07:40 Hydrocortisone; ss - Home Meds: 07:40 Pt is unsure what she takes at this time. [Active]; ss - PMHx: 07:40 diabetes mellitus; Hypertensive disorder; ss - PSHx: 07:40 Toe amputation; R lumpectomy; ss - Immunization history:: Client reports receiving the 2nd dose of the Covid vaccine. - Social history:: Smoking status: Patient denies any tobacco usage or history of. - Family history:: not pertinent. Screenin:36 [facility] ED Fall Risk Assessment (Adult) History of falling in the last 3 months, 5 including since admission No falls in past 3 months (0 pts) Confusion or Disorientation No (0 pts) Intoxicated or Sedated No (0 pts) Impaired Gait Yes (1 pt) Mobility Assist Device Used Yes (1 pt) Altered Elimination No (0 pt) Score/Fall Risk Level 0 - 2 = Low Risk. Abuse screen: Denies threats or abuse. Denies injuries from another. Nutritional screening: No deficits noted. Tuberculosis screening: No symptoms or risk factors identified. Assessment: 08:35 Reassessment: Pt to CT now VIA wheelchair. kb3 11:36 Reassessment: report called [facility] at this time. 5 Vital Signs: 07:37 BP 142 / 62; Pulse 106; Resp 16; Temp 97.9(TE); Pulse Ox 100% on R/A; Height 5 ft. 11 ss in. (180.34 cm); Pain 9/10; 07:49 Weight 92.08 kg; ss 10:57 BP 166 / 83; Pulse 78; Resp 16; Temp 98.6; Pulse Ox 100% ; kb3 11:54 BP 122 / 58; Pulse 81; Resp 13; Pulse Ox 100% on R/A; Pain 0/10; ss 07:49 Body Mass Index 28.31 (92.08 kg, 180.34 cm) ss [place] Coma Score: 10:51 Eye Response: spontaneous(4). Verbal Response: oriented(5). Motor Response: obeys sindhu commands(6). Total: 15. ED Course: 07:32 Patient arrived in ED. rg4 07:33 Tommy Kidd MD is Attending Physician. sindhu 07:40 Triage completed. ss 07:40 Arm band placed on right wrist. ss 08:30 Inserted saline lock: 22 gauge in left antecubital area, using aseptic technique. Blood kb3 collected. 09:08 Spine Lumbar Wo Con In Process Unspecified. EDMS 10:00 transfer initiated to [facility] by dr kidd, pt denied due to not beds at this time, per Kristen hicks. 10:03 initiated transfer to [facility]. bd 10:38 Lumbar Spine Wo Con In Process Unspecified. EDMS 11:35 Chest Single View XRAY In Process Unspecified. EDMS 11:36 Patient has correct armband on for positive identification. Bed in low position. Call [facility] light in reach. Side rails up X 1. 11:36 No provider procedures requiring assistance completed. 5 11:54 Katiuska Faustin, RN is Primary Nurse. 12:43 pt accepted in transfer to [facility] by dr Bowen, admin approval given by Arielle Johnson, pt going to ER. 13:33 Patient transferred, IV remains in place. ss Administered Medications: 08:42 CANCELLED (Duplicate Order): fentaNYL (PF) [address] [facility] 09:21 Drug: NS 0.9% 500 ml Route: IV; Rate: bolus; Site: left antecubital; [facility] 10:30 Follow up: IV Status: Completed infusion; IV Intake: 500ml 09:21 Drug: Zofran (Ondansetron) 4 mg Route: IVP; Site: left antecubital; [facility] 09:21 Drug: Ketorolac 30 mg Route: IVP; Site: left antecubital; 5 09:21 Drug: fentaNYL (PF) 25 mcg Route: IVP; Site: left antecubital; 5 09:21 Drug: fentaNYL (PF) 25 mcg Route: IVP; Site: left antecubital; 5 09:30 Drug: Valium (diazepam) 10 mg Route: PO; 5 Medication: 11:37 VIS not applicable for this client. 5 Intake: 10:30 IV: 500ml; Total: 500ml. Outcome: 09:53 ER care complete, transfer ordered by . [facility] 13:33 Patient left the ED. [facility] 17:48 Transferred by ground EMS 17:48 Condition: good 17:48 Instructed on the need for transfer. Signatures: Dispatcher [employer] EDMS Marce Singh Corey, MD MD cha Smirch, Shelby, RN RN ss Lluvia Sparks rg4 Denise Valdez RN RN jh5 Cherri Monroy, KAITY RN kb3 Corrections: (The following items were deleted from the chart) 17:48 11:33 Patient transferred, IV remains in place. ss
--- NOTE | 2022-08-09 11:05 | RAD REPORT ---
EXAM DESCRIPTION: MRI - Lumbar Spine Wo Con - 08/09/2022 10:42 am CLINICAL HISTORY: Back pain with radiculopathy COMPARISON: CT August 09, 2022 TECHNIQUE: Sagittal T1, T2 and STIR weighted sequences were obtained. Axial T1 and T2 sequences were obtained through the lumbar disc levels. FINDINGS: An approximately 7 x 6 x 6 centimeter mass extends from the right aspect of the L3-4 level to S1. The mass involves the posterior elements, neural foramina, right aspect of thecal sac and rig ht erector spinae muscle. The vertebral bodies are also involved. L4 vertebral body is the most invol rubio. 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 It is difficult to determine the extent of spinal canal involvement secondary to lack of IV contrast. IMPRESSION: 7 centimeter mass extends from the right aspect L3-4 to S1. Right neural foramina and sp inal canal are involved with bony destruction. 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
--- NOTE | 2022-08-09 11:42 | RAD REPORT ---
EXAM DESCRIPTION: Rachel Single View3 11:33 am CLINICAL HISTORY: Cough COMPARISON: 2021 FINDINGS: The lungs appear clear of acute infiltrate. The heart is mildly enlarged IMPRESSION: No acute abnormalities displayed
[2022-08-09 13:53] VITALS: O2SAT 100
[2022-08-09 14:00] VITALS: BP 122/58
[2022-08-09 14:07] VITALS: TEMP 98.1
== END 2022-08-09 13:33 | disposition short-term general hospital (02) ==
LOC: ER 07:30
DX: M54.50 Low back pain, unspecified (principal); C49.9 Malignant neoplasm of connective and soft tissue, unspecified; D63.0 Anemia in neoplastic disease; E11.65 Type 2 diabetes mellitus with hyperglycemia; N19 Unspecified kidney failure; I10 Essential (primary) hypertension; Z88.5 Allergy status to narcotic agent
CPT/HCPCS: 85025; 36415; 80053; 72131; 71045; 72148; J3010; J7030; J2405

== ENCOUNTER → 2023-08-02 | Emergency (ER) | payer OTHER ==
[~2023-08-02] MED LIST: AZITHROMYCIN 500 MG INJ IVPB ONE; CEFTRIAXONE 500 MG/VIAL ONE; D10W 250 ML IV ONE; D50W 25 GM/50 ML SYRINGE IV ONE; EPINEPHrine 1 MG/10 ML SYR IV ONE; NA CHLORIDE 0.9% 1,000 ML ONE
[2023-08-02 16:07] LABS: Protime INR 1.44
[2023-08-02 16:18] LABS: Absolute Lymphocytes (CBC) 1.1 K/uL (0.7-4.9); Hematocrit 23.6 % (36.0-45.0); Lymphocytes % 9.1 % (15.3-44.8); MCV 101.9 fL (80-100); MPV 8.3 fL (7.6-11.3); Platelets 322 thou/uL (152-406); RBC Red Blood Cell Count 2.32 M/uL (3.86-4.86)
[2023-08-02 16:21] LABS: Albumin 1.5 g/dL (3.4-5.0); Bilirubin Total 0.1 mg/dL (0.2-1.0); Protein, Total 5.3 g/dL (6.4-8.2)
[2023-08-02 16:24] LABS: Potassium 3.5 mEq/L (3.5-5.1)
--- NOTE | 2023-08-02 16:51 | RAD REPORT ---
EXAM DESCRIPTION: RADChest Single View08/02/2023 4:05 pm CLINICAL HISTORY: intubate COMPARISON: Chest Single View dated 07/19/2023; Chest Single View dated 08/09/2022; Chest Single View da kali 01/04/2022; Chest Single View dated 11/23/2021 TECHNIQUE: Portable AP view of the chest. FINDINGS: Endotracheal tube tip terminates 3.6 cm above the andre. Enteric tube Defibrillator pads obscure evaluation in the left mid to lower lung. Hazy opacification in the right upper lobe. No pne umothorax or effusion. The cardiomediastinal contours are unchanged with mild cardiomegaly. IMPRESSION: Enteric tube in satisfactory position. Mild hazy opacification of the right upper lobe, could be artifactual correlating to early airspace disease.
--- NOTE | 2023-08-02 17:05 | EDPHYS ---
Physician Documentation [facility] Name: Nedra Luis Age: 63 yrs Sex: Female : 1960 Arrival Date: 08/02/2023 Time: 15:00 Bed 4 Private MD: ED Physician Keshav Dickey HPI: 08/02 16:58 This 63 yrs old Black Female presents to ER via EMS with complaints of CPR. ec2 16:58 Patient arrives today in cardiac arrest. Per EMS he had arrived at the scene with an ec2 altered individual who subsequently became unresponsive and they initiated compressions. EMS reports that they had given 3 rounds of epinephrine and approximately 30 minutes of CPR.. Historical: - Allergies: 15:51 Hydrocodone-Acetaminophen; as6 15:51 Hydrocortisone; as6 - PMHx: 15:51 diabetes mellitus; Hypertensive disorder; as6 - PSHx: 15:51 R lumpectomy; toe amputation; as6 - Immunization history:: Adult Immunizations unknown. - Social history:: Smoking status: unknown. ROS: 16:59 Constitutional: as per hpi ec2 Exam: 16:59 Constitutional: GEN: unresponsive Head: atraumatic Ears: External ears are ec2 normal. CV: Pulseless LUNGS: I-gel in place ABD: non-distended SKIN: no evidence of rashes MSK: no evidence of trauma NEURO: No spontaneous movement Vital Signs: 15:35 BP 103 / 67; Pulse 60; Resp 17 A; Pulse Ox 96% on ETT vent; ko1 15:41 BP 108 / 74; Pulse 61; Resp 16 A; Pulse Ox 96% on ETT vent; ko1 15:50 BP 111 / 69; Pulse 63; Resp 16; Pulse Ox 99% on ETT vent; ko1 16:10 BP 114 / 68; Pulse 63; Resp 16; Pulse Ox 96% on ETT vent; ko1 16:50 Weight 81.65 kg; ko1 17:00 BP 120 / 69; Pulse 60; Resp 16; Pulse Ox 100% ; ko1 17:30 BP 122 / 68; Pulse 60; Resp 16; Pulse Ox 100% on ETT vent; ko1 18:00 BP 122 / 63; Pulse 61; Resp 18; Pulse Ox 100% on ETT vent; ko1 20:06 BP 127 / 74; Pulse 72; Resp 16; Temp 90.7(Ca); Pulse Ox 100% ; tm6 Procedures: 16:59 CPR: See CPR flow sheet. Initial patient assessment: The presenting cardiac rhythm is ec2 PEA. igel, Compressions: began prior to arrival. Meds given: Epinephrine X 1, regained rhythm. Intubation: Intubated orally using # 3 Katty blade with 7.5 mm ETT. was successful on first attempt. Ventilated with Ambu bag. Tube secured with ETT [place] Placement verified by CXR, Patient tolerated well. Central Line: the site was prepped with in sterile fashion, a triple lumen catheter was inserted, in the right femoral vein, in 1 attempts. placement was verified, by blood return, the site was dressed with Tegaderm, the patient tolerated the procedure, well. MDM: 15:29 Patient medically screened. ec2 16:24 ED course: EKG independently reviewed and interpreted by me, shows normal sinus rhythm, ec2 rate of 61, no acute ST segment elevations, does show QTc prolongation at 525. . 17:01 ED course: Patient arrives today in cardiac arrest. History gathered by EMS as per HPI. ec2 On arrival patient in PEA on my initial pulse and rhythm check, we noted her to be hypoglycemic, EMS had given IM glucagon prior to arrival, initial blood sugars in the 40s here. Will ultimately place an IO as well as an EJ and were able to infuse glucose containing fluid. Will continue compressions per ACLS protocol without additional epinephrine administration given 4 doses already given. Patient ultimately with improvement in blood sugar, was able to regain pulse. I intubated the patient without issue with appropriate breath sounds and ET tube placement. I also placed a right femoral central line given the lack of access. Ultimately patient began chewing at the ET tube and give the patient rocuronium to paralyze the patient. Initial EKG obtained, independently reviewed and interpreted by me, shows normal sinus rhythm, rate of 61, no acute ST segment elevations, additional QTc prolongation of 525. I have treated the family at bedside regarding the guarded prognosis. Additional history gathered from family did report that she had been having some shortness of breath ongoing for the past several days as well. Patient with recent diagnosis of possible pneumonia. Will obtain CT scan of the head, CT scan of the chest, abdomen, pelvis to evaluate for further underlying process. Currently evaluated for processes such as ACS, pneumonia, intracranial brain bleed, electrolyte disturbances, anemia.. 17:04 Data reviewed: vital signs. ec2 17:06 ED course: CBC shows slight anemia with hemoglobin 7.3, leukocytosis of 12.3. proBNP ec2 elevated at 3000. Metabolic profile shows anion gap of 22, renal dysfunction with a creatinine of 2.84 and a GFR of 18. Lactic acid elevated 8.7. Troponin within normal ranges at 44. Chest x-ray shows possible pneumonia. . 17:09 ED course: Patient with metabolic acidosis with a pH of 7.1 and pCO2 at 32, bicarb at ec2 9.. 17:11 ED course: Place central line in the right groin given ease of access given the ec2 individuals attempting EJ access as well as managing the airway.. 17:54 ED course: I discussed case with the fish house worker at [facility] who agrees accept ec2 the patient for transfer. . 19:04 ED course: Urine also infectious appearing, patient already given antibiotics. CT scan ec2 of the head shows no acute intracranial process, CT chest abdomen pelvis shows patchy bilateral opacities concerning for pneumonia, consistent with chest x-ray. Additional comments about questionable asymmetric anal thickening. . 08/02 15:49 Order name: CBC with Diff ec2 08/02 15:49 Order name: NT PRO-BNP; Complete Time: 17:05 ec2 08/02 15:49 Order name: Troponin HS; Complete Time: 17:05 ec2 08/02 15:49 Order name: Blood Culture Adult (2) ec2 08/02 15:49 Order name: CMP; Complete Time: 17:05 2 08/02 15:49 Order name: Lactate w/ 2H reflex if indic.; Complete Time: 17:05 ec2 08/02 15:49 Order name: Protime (+inr); Complete Time: 17:05 ec2 08/02 15:49 Order name: Ptt, Activated; Complete Time: 17:05 ec2 08/02 15:49 Order name: Urinalysis w/ reflexes; Complete Time: 19:03 ec2 08/02 16:25 Order name: ABG; Complete Time: 17:36 ec2 08/02 17:53 Order name: Glucose, Ancillary Testing; Complete Time: 19:03 EDTX 08/02 18:12 Order name: Urine Culture EDTX 08/02 20:05 Order name: Manual Differential EDTX 08/02 15:49 Order name: XRAY Chest (1 view); Complete Time: 17:05 ec2 08/02 15:49 Order name: CT Head Brain wo Cont; Complete Time: 19:03 ec2 08/02 15:49 Order name: CT Chest, Abdomen, Pelvis - W/Contrast; Complete Time: 19:03 ec2 08/02 15:49 Order name: EKG; Complete Time: 15:50 ec2 08/02 15:49 Order name: Cardiac monitoring; Complete Time: 16:35 ec2 08/02 15:49 Order name: EKG - Nurse/Tech; Complete Time: 16:35 ec2 08/02 15:49 Order name: IV Saline Lock; Complete Time: 16:35 ec2 08/02 15:49 Order name: Labs collected and sent; Complete Time: 16:35 ec2 08/02 15:49 Order name: O2 Per Protocol; Complete Time: 16:35 ec2 08/02 15:49 Order name: O2 Sat Monitoring; Complete Time: 16:35 ec2 08/02 15:49 Order name: Accucheck; Complete Time: 16:34 ec2 08/02 15:49 Order name: IV Saline Lock - Large Bore; Complete Time: 16:34 ec2 08/02 15:49 Order name: Vital Signs; Complete Time: 16:34 ec2 Administered Medications: 15:02 Drug: EPINEPHrine 0.1mg/mL 1:10,000 1 mg IVP once Route: IVP; Site: Other; as6 15:04 Drug: D50W 50 ml IVP once; (1 amp) Route: IVP; Site: Other; as6 16:51 Drug: Rocephin IV 1 grams IV at calculated rate once; Given slow IV push per pharmacy ko1 instructions Route: IV; Rate: calculated rate; Site: right femoral; 16:51 Drug: NS 0.9% IV 1000 ml IV at 1 bolus Per protocol; 1000 mL bolus Route: IV; Rate: 1 ko1 bolus; Site: right femoral; 16:51 Drug: AZITHromycin IVPB 500 mg IVPB once over 1 hrs; (mix in 250 mL NS) Route: IVPB; ko1 Infused Over: 1 hrs; Site: right femoral; 17:28 Drug: NS 0.9% IV 1000 ml IV at 1 bolus Per protocol; 1000 mL bolus Route: IV; Rate: 1 ko1 bolus; Site: right femoral; 18:24 Drug: Sodium Bicarbonate IVP 3 amp IVP once; (50 mL); equals 50 mEq Route: IVP; Site: ko1 right femoral; Point of Care Testing: Blood Glucose: 15:04 Blood Glucose: 45 mg/dL; as6 15:10 Blood Glucose: 35 mg/dL; as6 15:16 Blood Glucose: 79 mg/dL; as6 15:27 Blood Glucose: 62 mg/dL; as6 Ranges: Critical Glucose Levels:Adult <50 mg/dl or >400 mg/dl <40 mg/dl or >180 mg/dl Disposition: 17:04 Critical Care:. ec2 Disposition Summary: 08/02/23 17:05 Transfer Ordered Notes: Transfer Location: Other Acute Care Facility ec2 Reason: Higher level of care ec2 Condition: Serious ec2 Problem: an acute exacerbation ec2 Symptoms: have improved ec2 Accepting Physician: transferring doc(08/02/23 20:07) tm6 Diagnosis - Cardiac arrest, cause unspecified ec2 - Hypoglycemia, unspecified ec2 - Severe sepsis with septic shock ec2 - Pneumonia, unspecified organism ec2 - Hypothermia, initial encounter ec2 Forms: - Medication Reconciliation Form ec2 - SBAR form ec2 Critical care time excluding procedures: 17:04 Critical care time: Bedside Care: 75 minutes, Consultation: 10 minutes. Total time: 85 ec2 minutes Signatures: Dispatcher [employer] [facility] Harjeet Doherty RN RN as6 Marta Clemens RN RN ko1 Fidencio Martinez RN RN rs5 Keshav Dickey MD MD ec2 Christy Govea RN RN tm6 Corrections: (The following items were deleted from the chart) 15:51 15:50 BASIC METABOLIC PANEL+C.LAB.BRZ ordered. [facility] 16:59 16:58 Patient arrives today in cardiac arrest. Per EMS he had arrived at the scene with ec2 an altered individual who subsequently became unresponsive and they initiated compressions. EMS reports that they had given 3 rounds of epinephrine and approximately 30 minutes of CPR.. ec2 17:10 17:05 transferring doc ec2 ec2 17:12 17:10 transferring doc ec2 ec2 17:36 17:12 transferring doc ec2 ec2 20:07 17:36 transferring doc ec2 tm6
--- NOTE | 2023-08-02 17:05 | ER ---
Nurse's Notes [facility] Name: Nedra Luis Age: 63 yrs Sex: Female : 1960 Arrival Date: 08/02/2023 Time: 15:00 Bed 4 Private MD: Diagnosis: Cardiac arrest, cause unspecified;Hypoglycemia, unspecified;Severe sepsis with septic shock;Pneumonia, unspecified organism;Hypothermia, initial encounter Presentation: 08/02 14:56 Chief complaint: EMS states: called out for altered mental status, pt last known normal as6 was around 0500 AM when left for work this morning. when came home from work around 1400 he found pt in bathroom and was altered and minimally responsive. at time of arrival pt initial BGL was 42. EMS gave glucagon IM and was preparing for intubation. pt then went into PEA and EMS started CPR around 1430. EMS gave had oral airway in place (IGEL) administered 3 rounds of epi and fluids and pt went into v-tach and EMS deliberated twice. IO to right leg and CRP in progress at time of arrival to ER. Care prior to arrival: Oral airway placed, CPR via thumper and is still in progress Medication(s) given: Normal saline infusion, Epi IV initiated. IO Glucose check: 42. Compressions began at 14:30. 14:56 Method Of Arrival: EMS: [facility] as6 14:56 Acuity: EDEL 1 as6 14:56 Initial Sepsis Screen: Does the patient meet any 2 criteria? Altered Mental Status. rs5 Does the patient have a suspected source of infection? No. Patient's initial sepsis screen is negative. 16:04 Coronavirus screen: At this time, the client does not indicate any symptoms associated as6 with coronavirus-19. Ebola Screen: No symptoms or risks identified at this time. Risk Assessment: Do you want to hurt yourself or someone else? Unable to obtain. Onset of symptoms was August 02, 2023. Triage Assessment: 15:00 General: Appears unresponsive. Behavior is unresponsive. ko1 Historical: - Allergies: 15:51 Hydrocodone-Acetaminophen; as6 15:51 Hydrocortisone; as6 - PMHx: 15:51 diabetes mellitus; Hypertensive disorder; as6 - PSHx: 15:51 R lumpectomy; toe amputation; as6 - Immunization history:: Adult Immunizations unknown. - Social history:: Smoking status: unknown. Screenin:30 [facility] ED Fall Risk Assessment (Adult) History of falling in the last 3 months, rs5 including since admission No falls in past 3 months (0 pts) Confusion or Disorientation Yes (5 pts) Score/Fall Risk Level 3 or more points = High Risk Implemented a Fall Risk Plan of Care. 16:02 Abuse screen: Denies threats or abuse. Denies injuries from another. Nutritional as6 screening: No deficits noted. Tuberculosis screening: No symptoms or risk factors identified. Assessment: 14:56 CPR assessment: Ambu ventilation, pulses present w/ compressions. Cardiac rhythm is PEA.as6 15:02 Cardiac rhythm is PEA. as6 15:04 Cardiac rhythm is PEA. as6 15:06 Cardiac rhythm is PEA. as6 15:08 Cardiac rhythm is PEA. as6 15:10 Cardiac rhythm is PEA. as6 15:12 Cardiac rhythm is PEA. as6 15:14 Cardiac rhythm is PEA. as6 15:16 Cardiac rhythm is PEA. as6 15:18 Cardiac rhythm is PEA. as6 15:20 Cardiac rhythm is PEA. as6 15:22 Cardiac rhythm is PEA. as6 15:24 Cardiac rhythm is bradycardia. as6 15:25 General:. Pain: Unable to use pain scale. Patient is unresponsive. Neuro: Level of rs5 Consciousness is unresponsive, Oriented to none. Cardiovascular: Rhythm is sinus bradycardia. Respiratory: Airway via oral airway Respiratory effort is even. GI: Abdomen is round non-distended, Abd is soft and non tender X 4 quads. : No signs and/or symptoms were reported regarding the genitourinary system. EENT: No signs and/or symptoms were reported regarding the EENT system. Derm: Skin is intact, Skin is dry, Skin is normal, Skin temperature is warm. Musculoskeletal: Range of motion: intact in all extremities. 16:01 Reassessment: No changes from previously documented assessment. rs5 16:55 Reassessment: Patients bp is adequate without norepinephrine drip, will keep at bedside ko1 in case it is needed. Vital Signs: 15:35 BP 103 / 67; Pulse 60; Resp 17 A; Pulse Ox 96% on ETT vent; ko1 15:41 BP 108 / 74; Pulse 61; Resp 16 A; Pulse Ox 96% on ETT vent; ko1 15:50 BP 111 / 69; Pulse 63; Resp 16; Pulse Ox 99% on ETT vent; ko1 16:10 BP 114 / 68; Pulse 63; Resp 16; Pulse Ox 96% on ETT vent; ko1 16:50 Weight 81.65 kg; ko1 17:00 BP 120 / 69; Pulse 60; Resp 16; Pulse Ox 100% ; ko1 17:30 BP 122 / 68; Pulse 60; Resp 16; Pulse Ox 100% on ETT vent; ko1 18:00 BP 122 / 63; Pulse 61; Resp 18; Pulse Ox 100% on ETT vent; ko1 20:06 BP 127 / 74; Pulse 72; Resp 16; Temp 90.7(Ca); Pulse Ox 100% ; tm6 ED Course: 15:04 Patient arrived in ED. ae5 15:09 Assisted provider with intubation using 7.5 mm ETT via oral route. ET tube secured at as6 Set up intubation tray. Intubated by Keshav Dickey MD Placement verified by CO2 detector w/ + color change, auscultating bilateral breath sounds, Patient tolerated well. 15:25 Assisted provider with central line placement. Set up central line tray. Triple lumen rs5 line placed in right femoral. Line placed by Keshav Dickey MD Placement verified by blood return, Dressed with central line dressing Blood was collected. 15:29 Keshav Dickey MD is Attending Physician. ec2 15:51 Triage completed. as6 15:59 Fidencio Martinez, RN is Primary Nurse. rs5 16:00 NGT: inserted 16 Fr. via right nare. verified placement of air over stomach, verified ko1 return of gastric contents, Placement verified by X-ray, Patient tolerated well. 16:02 Placed in gown. Bed in low position. Call light in reach. Side rails up X2. as6 16:05 Arm band placed on. as6 16:07 XRAY Chest (1 view) In Process Unspecified. EDMS 16:17 Radiology exam delayed due to lab results not completed at this time. (BUN/Creatinine). nj 16:25 3-way catheter inserted, using sterile technique, 16 Fr. using sterile technique, rs5 assisted by RN and contract technician. 16:34 Blood Culture Adult (2) Sent. ko1 17:20 ABG Sent. ko1 18:05 CT Head Brain wo Cont In Process Unspecified. EDMS 18:06 CT Chest, Abdomen, Pelvis - W/Contrast In Process Unspecified. EDMS 20:05 Patient transferred, IV remains in place. tm6 20:06 Provided Education on: need for transfer. tm6 Administered Medications: 15:02 Drug: EPINEPHrine 0.1mg/mL 1:10,000 1 mg IVP once Route: IVP; Site: Other; as6 15:04 Drug: D50W 50 ml IVP once; (1 amp) Route: IVP; Site: Other; as6 16:51 Drug: Rocephin IV 1 grams IV at calculated rate once; Given slow IV push per pharmacy ko1 instructions Route: IV; Rate: calculated rate; Site: right femoral; 16:51 Drug: NS 0.9% IV 1000 ml IV at 1 bolus Per protocol; 1000 mL bolus Route: IV; Rate: 1 ko1 bolus; Site: right femoral; 16:51 Drug: AZITHromycin IVPB 500 mg IVPB once over 1 hrs; (mix in 250 mL NS) Route: IVPB; ko1 Infused Over: 1 hrs; Site: right femoral; 17:28 Drug: NS 0.9% IV 1000 ml IV at 1 bolus Per protocol; 1000 mL bolus Route: IV; Rate: 1 ko1 bolus; Site: right femoral; 18:24 Drug: Sodium Bicarbonate IVP 3 amp IVP once; (50 mL); equals 50 mEq Route: IVP; Site: ko1 right femoral; Medication: 16:05 VIS not applicable for this client. rs5 Point of Care Testing: Blood Glucose: 15:04 Blood Glucose: 45 mg/dL; as6 15:10 Blood Glucose: 35 mg/dL; as6 15:16 Blood Glucose: 79 mg/dL; as6 15:27 Blood Glucose: 62 mg/dL; as6 Ranges: Outcome: 15:24 Outcome Resuscitation successful as6 17:05 ER care complete, transfer ordered by . ec2 20:05 Transferred by ground EMS tm6 20:05 Condition: stable 20:05 Instructed on the need for transfer, 20:07 Patient left the ED. tm6 Addendum: 08/03/2023 18:37 Addendum: Culture Results: Positive blood culture. Phone call Attempt #1 RESULTS FAXED h b TO CHARGE NURSE ROMERO BRICENO AT [facility] [phone]. Signatures: Dispatcher [employer] EDMaria T Solomon, RN RN Andrew Kaplan Ashby RN RN as6 Marta Clemens RN RN ko1 Fidencio Martinez RN RN rs5 Keshav Dickey MD MD ec2 Christy Govea RN RN tm6 Celeste Kidd ae5 Corrections: (The following items were deleted from the chart) 08/02 16:42 15:35 BP 103 / 67; Pulse 60bpm; Resp 10bpm; Assisted; Pulse Ox 96% Non-rebreather mask; rs5 rs5 16:42 15:41 BP 108 / 74; Pulse 61bpm; rs5 rs5 16:42 15:50 BP 111 / 69; Pulse 63bpm; rs5 rs5 16:42 16:10 BP 114 / 68; Pulse 63bpm; rs5 rs5 18:33 15:50 BP 111 / 69; Pulse 63bpm; Resp 16bpm; Pulse Ox 99% BiPAP; rs5 ko1 18:33 16:10 BP 114 / 68; Pulse 63bpm; Resp 16bpm; Pulse Ox 96% BiPAP; rs5 ko1 18:33 15:41 BP 108 / 74; Pulse 61bpm; Resp 16bpm; Assisted; Pulse Ox 96% BiPAP; rs5 ko1 18:33 15:35 BP 103 / 67; Pulse 60bpm; Resp 17bpm; Assisted; Pulse Ox 96% BiPAP; rs5 ko1
[2023-08-02 17:06] LABS: Arterial Blood Carboxyhemoglob 0.2 % (0-1.5); Blood Gas Oxyhemoglobin 95.9 % (94-97); Blood O2 Saturation 98.3 % (92-98.5)
[2023-08-02 18:06] LABS: Specific Gravity 1.011 (1.005-1.030); Urine Bacteria 20-50 /HPF (<20); Urine Bilirubin NEGATIVE (Negative); Urine Blood 3+ (OVER) (Negative); Urine Clarity Extremely Turbid (Clear); Urine Color Light-Orange (Yellow); Urine Glucose NEGATIVE (Negative); Urine Mucus 1+ /HPF (None Seen); Urine Protein 2+ (Negative); Urine RBC 21-50 /HPF (None Seen); Urine Urobilinogen Normal (Normal); Urine pH 5.5 (5.0-7.0)
--- NOTE | 2023-08-02 18:22 | RAD REPORT ---
EXAM DESCRIPTION: CT - Head Brain Wo Cont - 08/02/2023 6:03 pm CLINICAL HISTORY: AMS. DECLINING STATE COMPARISON: No comparisons TECHNIQUE: Noncontrast head CT images were obtained without IV contrast. Multiplanar reformats were generated and reviewed. All CT scans are performed using dose optimization technique as appropriate and may include automated exposure control or mA/KV adjustment according to patient size. FINDINGS: No intracranial hemorrhage, mass, or edema. Midline structures are unremarkable. Normal ventricular caliber for age. Muñiz-white matter differentiation is preserved, without evidence of acute infarct. No abnormal extra- axial fluid collections. Mastoid air cells and visualized portions of the paranasal sinuses are clear. No acute bony findings. IMPRESSION: No evidence of an acute intracranial process.
--- NOTE | 2023-08-02 18:47 | RAD REPORT ---
EXAM DESCRIPTION: CT - Chest Abdomen Pelvis W Cont - 08/02/2023 6:05 pm CLINICAL HISTORY: Post CPR COMPARISON: Abdomen Pelvis Wo Contrast dated 07/19/2023 TECHNIQUE: Thin axial CT images of the chest, abdomen, and pelvis, performed following intravenous a dministration of iodinated contrast. Multiplanar reformats were generated and reviewed. All CT scans are performed using dose optimization technique as appropriate and may include automated exposure control or mA/KV adjustment according to patient size. FINDINGS: Numerous hypoattenuating and heterogeneously enhancing thyroid nodules, largest is on the right measuring 2.5 cm. The lungs are clear. Patchy airspace opacities bilaterally, most confluent in the right upper lobe near the apex.Endotrach eal tube terminates in the midthoracic trachea.No pleural effusion. Mild pericardial effusion. .No in trathoracic adenopathy. The liver, spleen, pancreas, adrenal glands and kidneys are within normal limits. Enteric tube in place. Mild caliber prominence of small bowel throughout the abdomen, with short-segm ent air-fluid levels. No transition point. No free air, free fluid or discrete fluid collection. Ente michael tube in place. Pronounced wall thickening and adjacent fat stranding involving the anal canal, re ctum, and to lesser extent the distal sigmoid colon. Asymmetric ill-defined soft tissue thickening al chandan the anal orifice and perineal region more so on the right, measuring 2.2 cm on the right. No path ologic lymphadenopathy in the abdomen or pelvis. Fibroid uterus, with a sizable right fundal calcified fibroid. No worrisome osseous finding. Sclerotic changes at the femoral heads, may reflect sequelae of avascul ar necrosis. Up to advanced lumbar spine degenerative changes. IMPRESSION: Patchy bilateral airspace opacities most pronounced in the right apex, raise concern for pneumonia. Mild prominence of small bowel throughout the abdomen, could reflect ileus or enteritis. Segmental pronounced wall thickening along the rectum and anal canal with adjacent edema. This raises concern for infectious/inflammatory inflammation. Questionable asymmetric soft tissue thickening meagan ng the anal orifice and perineum, which may relate to perianal abscess or phlegmon formation. Please correlate with physical exam. Mild pericardial effusion.
[2023-08-02 20:07] LABS: Anisocytosis 1+; Blood Morphology Comment NOTED (NOT SEEN); Platelet Estimate ADEQ
[2023-08-02 21:13] VITALS: BP 127/74; TEMP 90.7; O2SAT 100
--- NOTE | 2023-08-06 14:43 | EKG ---
Test Date: 2023-08-02 Test Time: 15:45:47 Cook Jelly: ER MEASUREMENT RESULTS: Intervals: Rate: 61 AL: 186 QRSD: 102 QT: 522 QTc: 525 [place]: P: 86 AL: 186 QRS: 89 T: 62 INTERPRETIVE STATEMENTS: Normal sinus rhythm Low voltage QRS Prolonged QT Abnormal ECG Compared to ECG 07/19/2023 11:56:50 Low QRS voltage now present Prolonged QT interval now present Right-axis deviation no longer present Electronically Signed On 08-06-23 14:31:55 [employer] by Adis Reynolds
== END ==
LOC: ER 15:00
PROC: 06HM33Z Insertion of Infusion Device into Right Femoral Vein, Percutaneous Approach (ICD-10-PCS; principal; 2023-08-02)
DX: I46.9 Cardiac arrest, cause unspecified (principal); R65.21 Severe sepsis with septic shock; J18.9 Pneumonia, unspecified organism; T68.XXXA Hypothermia, initial encounter; E11.649 Type 2 diabetes mellitus with hypoglycemia without coma; I10 Essential (primary) hypertension; Z88.5 Allergy status to narcotic agent; Z88.8 Allergy status to other drugs, medicaments and biological substances
CPT/HCPCS: 93005; 87040 ×2; 87088; 85025; 81001; 87086; 36415; 87205 ×4; 85610; 82947 ×4; 83605; 85730; 84484; 80053; 83880; 70450; 71260; 74177; 71045; 82805; 36600; 92950; 94002; 31500; 36556; Q9967; J0171; J7030 ×2; 87077; 87186

== ENCOUNTER 2023-11-21 00:22 | Observation (INO) | payer OTHER ==
[2023-11-21] MEDS ORDERED: D5 0.9 NS 1,000 ML IV ONE (01:01)
[2023-11-21] MEDS ORDERED: DEXTROSE 10%-WATER 1,000 ML IV ONE (01:01)
[2023-11-21 01:14] LABS: PT Prothrombin Time 12.5 SECONDS (9.5-12.5); Protime INR 1.14
[2023-11-21 01:15] LABS: Absolute Basophils 0.1 K/uL (0-0.5); Absolute Eosinophils 0.1 K/uL (0-0.5); Absolute Lymphocytes (CBC) 0.9 K/uL (0.7-4.9); Absolute Monocytes 0.4 K/uL (0.1-1.3); Basophils % 0.7 % (0-1.3); Eosinophils % 1.6 % (0-4.4); Hemoglobin 9.8 g/dL (12.0-15.0); Lymphocytes % 12.6 % (15.3-44.8); MCH 32.1 pg (27.0-35.0); MCHC 32.6 g/dL (32.0-36.0); MCV 98.4 fL (80-100); MPV 9.1 fL (7.6-11.3); Monocytes % 5.9 % (3.3-12.3); Neutrophils % 79.2 % (41.7-73.7); Platelets 244 thou/uL (152-406); RBC Red Blood Cell Count 3.05 M/uL (3.86-4.86); Red Cell Distribution Width 18.6 % (12.1-15.2)
[2023-11-21 01:38] LABS: ALT/SGPT 32 U/L (13-56); AST/SGOT 26 U/L (15-37); Albumin 2.9 g/dL (3.4-5.0); Albumin/Globulin Ratio 0.8 (1.1-1.8); Alkaline Phosphatase 112 U/L (45-117); Anion Gap 7.8 mEq/L (5.0-15.0); BUN Blood Urea Nitrogen 25 mg/dL (7-18); Bicarbonate 25 mEq/L (21-32); Bilirubin Total 0.3 mg/dL (0.2-1.0); Globulin 3.5 g/dL (2.3-3.5); Glomerular Filtration Rate 25 ml/min (=/>90); Magnesium 1.6 mg/dL (1.6-2.4); NT PRO-BNP 607 pg/mL (<125); Potassium 2.8 mEq/L (3.5-5.1); Protein, Total 6.4 g/dL (6.4-8.2); Sodium Level 136 mEq/L (136-145); Troponin High Sensitivity 35.3 pg/mL (<58.9)
[2023-11-21 01:39] LABS: Bilirubin Direct < 0.2 mg/dL (0-0.2); Bilirubin Indirect, Calculated 0.1 mg/dL (0.2-0.8); Glucose Level 46 mg/dL (74-106)
[2023-11-21] MEDS ORDERED: ACETAMINOPHEN 325 MG TABLET PO PRN (03:33)
[2023-11-21] MEDS ORDERED: ONDANSETRON 4 MG/2 ML VIAL IV PRN (03:33)
--- NOTE | 2023-11-21 03:34 | ER ---
Nurse's Notes [facility] Name: Nedra Luis Age: 63 yrs Sex: Female : 1960 Arrival Date: 11/21/2023 Time: 00:22 Bed 2 Private MD: Diagnosis: Drug-induced hypoglycemia without coma;Near sinkHypoglycemia in response to long-acting insulin, pulm episode, end-stage renal disease Presentation: 11/20 00:22 Chief complaint: EMS states: called out for lower blood sugar, on arrival bs was "low, bm8 unreadable" gave 1g of glucagon IM. 00:22 Coronavirus screen: Client denies travel out of the [place] in the last 14 days. At this bm8 time, the client does not indicate any symptoms associated with coronavirus-19. Ebola Screen: No symptoms or risks identified at this time. Initial Sepsis Screen: Does the patient meet any 2 criteria? No. Patient's initial sepsis screen is negative. Does the patient have a suspected source of infection? No. Patient's initial sepsis screen is negative. Risk Assessment: Do you want to hurt yourself or someone else? Patient reports no desire to harm self or others. Onset of symptoms is unknown. 00:22 Method Of Arrival: EMS: [facility] bm8 00:22 Acuity: EDEL 3 bm8 Triage Assessment: 00:22 General: Appears in no apparent distress. comfortable, Behavior is calm, cooperative, bm8 drowsy. 00:22 Pain: Denies pain. EENT: No deficits noted. No signs and/or symptoms were reported bm8 regarding the EENT system. Neuro: No deficits noted. Level of Consciousness is awake, alert, obeys commands, Oriented to person, place, time, situation. Cardiovascular: No deficits noted. Denies chest pain, shortness of breath, Heart tones S1 S2 present Capillary refill < 3 seconds is sluggish Patient's skin is warm and dry. Respiratory: Airway is patent Trachea midline Respiratory effort is even, unlabored, Respiratory pattern is regular, symmetrical, Breath sounds are clear bilaterally. GI: No deficits noted. No signs and/or symptoms were reported involving the gastrointestinal system. : No deficits noted. No signs and/or symptoms were reported regarding the genitourinary system. Derm: Skin is clammy. Musculoskeletal: No deficits noted. No signs and/or symptoms reported regarding the musculoskeletal system. Historical: - Allergies: 01:15 Hydrocodone-Acetaminophen; bm8 01:15 Hydrocortisone; bm8 - Home Meds: 01:15 atorvastatin 20 mg Oral tablet [Active]; carvedilol 25 mg Oral tablet [Active]; bm8 gabapentin 300 mg Oral capsule [Active]; hydralazine 10 mg Oral tablet [Active]; levothyroxine 75 mcg tablet [Active]; - PMHx: 01:15 diabetes mellitus; Hypertensive disorder; Hypothyroidism; Hypercholesterolemia; bm8 - PSHx: 01:15 R lumpectomy; toe amputation; bm8 - Immunization history:: Adult Immunizations unknown. - Infectious Disease History:: Denies. - Social history:: Smoking status: unknown. - Family history:: not pertinent. Screenin: [place] [facility] Fall Risk Assessment (Adult) History of falling in the last 3 months, bm8 including since admission No falls in past 3 months (0 pts) Confusion or Disorientation No (0 pts) Intoxicated or Sedated No (0 pts) Impaired Gait No (0 pts) Mobility Assist Device Used No (0 pt) Altered Elimination No (0 pt) Score/Fall Risk Level 0 - 2 = Low Risk Oriented to surroundings, Maintained a safe environment, Educated pt \\T\\ family on fall prevention, incl call for assistance when getting out of bed, Assessed \\T\\ reinforced patient's understanding of fall precautions. Abuse screen: Denies threats or abuse. Nutritional screening: No deficits noted. Tuberculosis screening: No symptoms or risk factors identified. Assessment: : Reassessment: Patient appears in no apparent distress at this time. Patient and/or bm8 family updated on plan of care and expected duration. Pain level reassessed. Patient is alert, oriented x 3, equal unlabored respirations, skin warm/dry/pink. pt is a little more alert, easier to wake. states that she has slight headache on left side near adventism. General: Appears in no apparent distress. comfortable, Behavior is calm, cooperative, drowsy. Pain: Complains of pain in left adventism Pain does not radiate. Pain currently is 5 out of 10 on a pain scale. Quality of pain is described as aching. Neuro: No deficits noted. Level of Consciousness is awake, alert, obeys commands, Oriented to person, place, time, situation, [employer] Responsibility are equal bilaterally Moves all extremities. Full function Speech is normal, Facial symmetry appears normal. Cardiovascular: No deficits noted. Respiratory: No deficits noted. GI: No deficits noted. No signs and/or symptoms were reported involving the gastrointestinal system. : No deficits noted. No signs and/or symptoms were reported regarding the genitourinary system. EENT: No deficits noted. No signs and/or symptoms were reported regarding the EENT system. Derm: Skin is clammy. 02:26 Reassessment: new FSBS 237. informed provider and instructed to stop all infusions. bm8 recheck in 1 hr. 04:57 Reassessment: Patient appears in no apparent distress at this time. Patient and/or bm8 family updated on plan of care and expected duration. Pain level reassessed. Patient is alert, oriented x 3, equal unlabored respirations, skin warm/dry/pink. Patient states feeling better. Patient states symptoms have improved. Vital Signs: 00:22 BP 88 / 52; Pulse 71; Resp 15; Temp 94; Pulse Ox 100% ; Weight 65.77 kg; Height 5 ft. bm8 11 in. ; Pain 0/10; 01:27 BP 112 / 56; Pulse 72; Resp 16; Pulse Ox 100% ; Pain 0/10; bm8 02:26 BP 119 / 54; Pulse 73; Resp 16; Temp 94; Pulse Ox 100% ; Pain 0/10; bm8 04:57 BP 114 / 56; Pulse 71; Resp 16; Temp 97.5; Pulse Ox 100% on R/A; Pain 0/10; bm8 00:22 Body Mass Index 20.22 (65.77 kg, 180.34 cm) bm8 00:22 Pain Scale: Adult bm8 01:27 Pain Scale: Adult bm8 02:26 Pain Scale: Adult bm8 04:57 Pain Scale: Adult bm8 [place] Coma Score: 01:23 Eye Response: spontaneous(4). Motor Response: obeys commands(6). Verbal Response: bm8 oriented(5). Total: 15. 04:57 Eye Response: spontaneous(4). Motor Response: obeys commands(6). Verbal Response: bm8 oriented(5). Total: 15. ED Course: 00:22 Arm band placed on right wrist. bm8 00:23 Patient arrived in ED. vk 00:28 Manny Jurado MD is Attending Physician. sp4 00:43 EKG done, by ED staff. vk 01:03 XRAY Chest (1 view) In Process Unspecified. EDMS 01:13 Michael Perry, RN is Primary Nurse. bm8 01:15 Triage completed. bm8 01:23 No provider procedures requiring assistance completed. Inserted saline lock: 20 gauge bm8 in left upper arm, using aseptic technique. ,using aseptic technique. by ultrasound Blood collected. 01:23 Patient has correct armband on for positive identification. Placed in gown. Bed in low bm8 position. Call light in reach. Side rails up X2. Adult w/ patient. Client placed on continuous cardiac and pulse oximetry monitoring. NIBP monitoring applied. traffic monitor specialist on. Pulse ox on. NIBP on. Door closed. Noise minimized. Visitors limited. Warm blanket given. Verbal reassurance given. Head of bed elevated. 03:33 Rudy Slater MD is Hospitalizing Provider. sp4 05:15 Patient admitted, IV remains in place. bm8 05:15 Provided Education on: need for admit. bm8 Administered Medications: 02:30 Discontinued: [id number] ml IV at 125 ml/hr continuous bm8 01:26 Drug: D5-NS IV 1000 ml IV at 125 ml/hr continuous Route: IV; Rate: 125 ml/hr; Site: bm8 left upper arm; 01:27 Drug: D10 in Water IVP 1000 ml IVP once Route: IVP; Site: left upper arm; bm8 02:30 Follow up: Response: No adverse reaction; stopped at 500 mls bm8 03:46 Drug: Potassium Chloride PO 40 mEq PO once Route: PO; bm8 04:59 Follow up: Response: No adverse reaction bm8 Medication: 01:23 VIS not applicable for this client. bm8 Point of Care Testing: Blood Glucose: 00:22 Blood Glucose: 44 mg/dL; bm8 Ranges: Intake: Outcome: 03:33 Decision to Hospitalize by Provider. sp4 05:16 Admitted to Tele accompanied by nurse, via stretcher, room 407, with chart, bm8 05:16 Condition: stable 05:16 Instructed on the need for admit, 05:36 Patient left the ED. bm8 Signatures: Dispatcher [employer] EDUT Adrien, Manny, MD MD sp4 Joan De Leon Brad, RN RN bm8
--- NOTE | 2023-11-21 03:34 | EDPHYS ---
Physician Documentation [facility] Name: Nedra Luis Age: 63 yrs Sex: Female : 1960 Arrival Date: 11/21/2023 Time: 00:22 Bed 2 Private MD: ED Physician Manny Jurado HPI: 11/20 03:23 This 63 yrs old Black Female presents to ER via EMS with complaints of Low Blood Sugar. sp4 03:23 Patient with end-stage renal disease on dialysis, diabetes insulin Tresiba insulin sp4 presents with hypoglycemic episode at home. Patient's blood sugar has measured low. EMS have administered intramuscular glucagon. Patient has history of also hypercholesterolemia hypothyroidism hypertension. History of anemia of renal disease, bilateral foot diabetic ulcers, diabetes mellitus type 2, and history of unexplained weight loss. Patient states she injected 60 units Tresiba insulin and did not properly eat. Patient's medications include atorvastatin 20 mg daily, brimonidine timolol eyedrops, dorzolamide eyedrops, pantoprazole daily, insulin degludec 50 units subcu daily, bimatoprost or Lumigan ophthalmic drops, carvedilol twice daily, hydralazine every 6 hours, Real twice daily.. Historical: - Allergies: 01:15 Hydrocodone-Acetaminophen; bm8 01:15 Hydrocortisone; bm8 - Home Meds: 01:15 atorvastatin 20 mg Oral tablet [Active]; carvedilol 25 mg Oral tablet [Active]; bm8 gabapentin 300 mg Oral capsule [Active]; hydralazine 10 mg Oral tablet [Active]; levothyroxine 75 mcg tablet [Active]; - PMHx: 01:15 diabetes mellitus; Hypertensive disorder; Hypothyroidism; Hypercholesterolemia; bm8 - PSHx: 01:15 R lumpectomy; toe amputation; bm8 - Immunization history:: Adult Immunizations unknown. - Infectious Disease History:: Denies. - Social history:: Smoking status: unknown. - Family history:: not pertinent. ROS: 03:23 Constitutional: Negative for fever, chills, and weight loss, positive for hypoglycemic sp4 episode near syncopal episode. 03:23 All other systems are negative, Exam: 03:27 Constitutional: This is a well developed, well nourished patient who is awake, a pale sp4 ill-appearing female nontoxic-appearing. And bilateral lower extremity chronic appearing edema. Right-sided tunneled hemodialysis catheter. Head/Face: Normocephalic, atraumatic. Eyes: Pupils equal round and reactive to light, extra-ocular motions intact. Lids and lashes normal. Conjunctiva and sclera are not injected. Cornea within normal limits. Periorbital areas with no swelling, redness, or edema. ENT: Nares patent. No nasal discharge, no septal abnormalities noted. Tympanic membranes are normal and external auditory canals are clear. Oropharynx with no redness, swelling, or masses, exudates, or evidence of obstruction, uvula midline. Mucous membranes moist. Neck: Trachea midline, no thyromegaly or masses palpated, and no cervical lymphadenopathy. Supple, full range of motion without nuchal rigidity, or vertebral point tenderness. Chest/axilla: Normal chest wall appearance and motion. Nontender with no deformity. No lesions are appreciated. Cardiovascular: Regular rate and rhythm with a normal S1 and S2. No gallops, murmurs, or rubs. Normal PMI, no JVD. No pulse deficits. Respiratory: Lungs have equal breath sounds bilaterally, clear to auscultation and percussion. No rales, rhonchi or wheezes noted. No increased work of breathing, no retractions or nasal flaring. Abdomen/GI: Soft, with normal bowel sounds. No distension or tympany. No guarding or rebound. No evidence of tenderness throughout. Back: No spinal tenderness. No costovertebral tenderness. Skin: Warm, dry with normal turgor. Normal color with no rashes, no lesions, and no evidence of cellulitis. MS/ Extremity: Pulses equal, no cyanosis. Neurovascular intact. Full, normal range of motion. Neuro: Awake and alert, GCS 15, oriented to person, place, time, and situation. Cranial nerves II-XII grossly intact. Motor strength 5/5 in all extremities. Sensory grossly intact. Psych: Awake, alert, with orientation to person, place and time. Behavior, mood, and affect are within normal limits 03:27 ECG was reviewed by the Attending Physician. EKG 0038 normal sinus rhythm at 72 bpm. Left ventricular hypertrophy Vital Signs: 00:22 BP 88 / 52; Pulse 71; Resp 15; Temp 94; Pulse Ox 100% ; Weight 65.77 kg; Height 5 ft. bm8 11 in. ; Pain 0/10; 01:27 BP 112 / 56; Pulse 72; Resp 16; Pulse Ox 100% ; Pain 0/10; bm8 02:26 BP 119 / 54; Pulse 73; Resp 16; Temp 94; Pulse Ox 100% ; Pain 0/10; bm8 04:57 BP 114 / 56; Pulse 71; Resp 16; Temp 97.5; Pulse Ox 100% on R/A; Pain 0/10; bm8 00:22 Body Mass Index 20.22 (65.77 kg, 180.34 cm) bm8 00:22 Pain Scale: Adult bm8 01:27 Pain Scale: Adult bm8 02:26 Pain Scale: Adult bm8 04:57 Pain Scale: Adult bm8 [place] Coma Score: 01:23 Eye Response: spontaneous(4). Motor Response: obeys commands(6). Verbal Response: bm8 oriented(5). Total: 15. 04:57 Eye Response: spontaneous(4). Motor Response: obeys commands(6). Verbal Response: bm8 oriented(5). Total: 15. MDM: 00:46 Patient medically screened. sp4 03:29 ED course: EXAM: XR Chest, 1 View CLINICAL HISTORY: The patient is 63 years old and is sp4 Female; syncope TECHNIQUE: Frontal view of the chest. COMPARISON: No relevant prior studies available. FINDINGS: LUNGS: Unremarkable. No consolidation. PLEURAL SPACE: Unremarkable. No pneumothorax. HEART: Unremarkable. No cardiomegaly. MEDIASTINUM: Unremarkable. Normal mediastinal contour. BONES/JOINTS: Unremarkable. No acute fracture. TUBES, LINES AND DEVICES: A right IJ Vas-Cath is present with the tip at the SVC/RA junction. UPPER ABDOMEN: Unremarkable as visualized. IMPRESSION: No acute cardiopulmonary process. . 03:29 Differential diagnosis: Rachid's syndrome, diabetes insipidus, DKA, hypothyroidism, sp4 myxedema coma, new onset diabetes. Data reviewed: vital signs, nurses notes, EMS record. Consideration of Admission/Observation Escalation of care including admission/observation considered. ED course: Patient injected Tresiba insulin reportedly 60 units without properly eating. Patient at this time wants admission for monitoring of her blood sugar monitors. Patient has moderate hypokalemia will replace p.o.. 11/20 00:28 Order name: Basic Metabolic Panel; Complete Time: 02:13 sp4 11/20 00:28 Order name: CBC with Diff; Complete Time: 02:13 sp4 11/20 00:28 Order name: LFT's; Complete Time: 02:13 sp4 11/20 00:28 Order name: Magnesium; Complete Time: 02:13 sp4 11/20 00:28 Order name: NT PRO-BNP; Complete Time: 02:13 sp4 11/20 00:28 Order name: PT-INR; Complete Time: 02:13 sp4 11/20 00:28 Order name: Troponin HS; Complete Time: 02:13 sp4 11/20 00:34 Order name: Type And Screen; Complete Time: 03:17 sp4 11/20 00:38 Order name: Glucose, Ancillary Testing; Complete Time: 02:13 EDMS 11/20 02:33 Order name: Glucose, Ancillary Testing; Complete Time: 03:17 EDMS 06 03:39 Order name: Urinalysis w/ reflexes EDMS 11/20 03:39 Order name: CBC with Automated Diff EDMS 11/20 03:39 Order name: CBC with Automated Diff EDMS 11/20 03:39 Order name: Comprehensive Metabolic Panel EDMS 11/20 03:39 Order name: Comprehensive Metabolic Panel EDMS 06 04:02 Order name: Glucose, Ancillary Testing EDMS 11/20 00:28 Order name: XRAY Chest (1 view) sp4 11/20 00:28 Order name: EKG; Complete Time: 00:29 sp4 11/20 00:28 Order name: Cardiac monitoring; Complete Time: 01: sp4 11/20 00:28 Order name: EKG - Nurse/Tech; Complete Time: 00:42 sp4 11/20 00:28 Order name: IV Saline Lock; Complete Time: : sp4 11/20 00:28 Order name: Labs collected and sent; Complete Time: : sp4 11/20 00:28 Order name: O2 Per Protocol; Complete Time: : sp4 11/20 00:28 Order name: O2 Sat Monitoring; Complete Time: 01:27 sp4 EC:27 Rate is 72 beats/min. Rhythm is regular, Normal Sinus Rhythm. QRS [place] is Normal. [place] sp4 interval is normal. QRS interval is normal. QT interval is prolonged. No Q waves. T waves are Normal. No ST changes noted. Clinical impression: No evidence of ischemia. Interpreted by me. Reviewed by me. Administered Medications: 02:30 Discontinued: [id number] ml IV at 125 ml/hr continuous bm8 01:26 Drug: D5-NS IV 1000 ml IV at 125 ml/hr continuous Route: IV; Rate: 125 ml/hr; Site: 8 left upper arm; 01:27 Drug: D10 in Water IVP 1000 ml IVP once Route: IVP; Site: left upper arm; bm8 02:30 Follow up: Response: No adverse reaction; stopped at 500 mls bm8 03:46 Drug: Potassium Chloride PO 40 mEq PO once Route: PO; bm8 04:59 Follow up: Response: No adverse reaction bm8 Point of Care Testing: Blood Glucose: 00:22 Blood Glucose: 44 mg/dL; bm8 Ranges: Critical Glucose Levels:Adult <50 mg/dl or >400 mg/dl <40 mg/dl or >180 mg/dl Disposition Summary: 11/21/23 03:33 Hospitalization Ordered Notes: Hospitalization Status: Observation sp4 Provider: Rudy Slater sp4 Location: Telemetry/MedSurg (observation) sp4 Condition: Stable sp4 Problem: new sp4 Symptoms: have improved sp4 Bed/Room Type: Standard 4 Room Assignment: 407(11/21/23 03:45) rv1 Diagnosis - Drug-induced hypoglycemia without coma sp4 - Near sinkHypoglycemia in response to long-acting insulin, pulm episode, end-stage sp4 renal disease Forms: - Medication Reconciliation Form sp4 - SBAR form sp4 - Leadership Thank You Letter sp4 Signatures: Dispatcher [employer] Trinh Alvarado rv1 Manny Jurado MD MD sp4 Michael Perry RN RN bm8 Corrections: (The following items were deleted from the chart) 00:29 00:29 BASIC METABOLIC PANEL+C.LAB.BRZ ordered. EDMS EDMS 00:29 00:29 CBC+H.LAB.BRZ ordered. EDMS EDMS 00:29 00:29 HEPATIC FUNCTION+C.LAB.BRZ ordered. EDMS EDMS 00:29 00:29 MAGNESIUM+C.LAB.BRZ ordered. EDMS EDMS 00:29 00:29 PROBNP+C.LAB.BRZ ordered. EDMS EDMS 00:29 00:29 PROTIME (+INR)+COAG.LAB.BRZ ordered. EDMS EDMS 00:29 Troponin High Sensitivity+C.LAB.BRZ ordered. EDMS EDMS 03:45 03:33 sp4 rv1
--- NOTE | 2023-11-21 03:38 | P.HP ---
Certification for Inpatient Patient admitted to: Observation With expected LOS: <2 Midnights Practitioner: I am a practitioner with admitting privileges, knowledge of patient current condition, hospital course, and medical plan of care. Services: Services provided to patient in accordance with Admission requirements found in Title 42 Section 412.3 of the Code of Federal Regulations Patient History Date of Service: 11/21/23 Reason for admission: Hypoglycemia History of Present Illness: 63 yrs old Female with past medical history of diabetes, hypertension, hypothyroidism, hyperlipidemia, ESRD on dialysis has been on Tresiba insulin presents with hyperglycemia Episode at home. Patient's blood sugar was measured low. Patient was drowsy and lethargic. EMS was called and found that the blood sugar being low has been given glucagon. Patient is a poor historian hence most of the history is obtained from the chart review and also talking to the ER physician. Patient also has history of hypercholesterolemia hypothyroidism hypertension. History of anemia of renal disease, bilateral foot diabetic ulcers, diabetes mellitus type 2, and history of unexplained weight loss. Patient states she injected 60 units Tresiba insulin and did not properly eat yesterday. Patient was assessed in the ER and was admitted for observation for possible recurrent hypoglycemia Allergies hydrocortisone Allergy (Verified 01/01/21 01:45) Hives Home medications list reviewed: Yes Home Medications: Atorvastatin Calcium 20 mg PO DAILY 11/15/21 Brimonidine Tartrate/Timolol [Brimonidine-Timolol 0.2%-0.5%] 1 drop LEFT EYE BID 11/15/21 Dorzolamide HCl/Pf [Dorzolamide 2% Eye Drop] 1 drop EACH EYE BID 11/15/21 Pantoprazole [Protonix Tab*] 1 tab PO DAILY 11/15/21 Insulin Degludec [Tresiba Flextouch U-100] 50 unit SQ DAILY 01/16/22 Bimatoprost [Lumigan Opthalmic Drops*] 1 drop EACH EYE BEDTIME 07/20/23 Carvedilol [Coreg] 1 tab PO BID 07/20/23 Hydralazine [Apresoline*] 1 tab PO Q6H 07/20/23 Real [Real*] 1 each PO BID #60 packet 07/21/23 - Past Medical/Surgical History Diabetic: Yes Past Medical History: Reviewed- Non-Contributory -: Diabetes mellitus type 2 -: Hypertension -: Osteoarthritis -: Glaucoma Past Surgical History: Reviewed- Non-Contributory -: Left toe amputation -: L foot surgery Psychosocial/ Personal History: Unemployed, lives with boyfriend - Family History Family History: Reviewed- Non-Contributory - Family History Brother -: Diabetes Sister -: Diabetes - Social History Smoking Status: Never smoker Alcohol use: No CD- Drugs: No Caffeine use: Yes Review of Systems 10-point ROS is otherwise unremarkable Physical Examination - Vital Signs Temperature: 96.8 F Blood Pressure: 102/52 Pulse: 78 Respirations: 18 Pulse Ox (%): 94 - Physical Exam General: Alert, Mild distress HEENT: Atraumatic, Normocephalic Neck: Supple, 2+ carotid pulse no bruit Respiratory: Clear to auscultation bilaterally, Normal air movement Cardiovascular: No edema, Regular rate/rhythm, Normal S1 S2 Capillary refill: <2 Seconds Gastrointestinal: Soft and benign, Non-distended, W/out hepatosplenomegaly Musculoskeletal: No clubbing Integumentary: No rashes, Diabetic ulcer Neurological: Normal strength at 5/5 x4 extr, Cranial nerves 3-12 intact, Normal affect Lymphatics: No axilla or inguinal lymphadenopathy - Studies Laboratory Data (last 24 hrs) 11/21/23 11/21/23 11/21/23 00:51 00:40 00:40 WBC 7.50 Hgb 9.8 L Hct 30.0 L Plt Count 244 PT 12.5 INR 1.14 Sodium 136 Potassium 2.8 L BUN 25 H Creatinine 2.18 H Glucose 46 L* Magnesium 1.6 Total Bilirubin 0.3 AST 26 ALT 32 Alkaline Phosphatase 112 Assessment and Plan - Problems (Diagnosis) (1) Hypoglycemia Current Visit: Yes Status: Acute Plan: Recurrent hypoglycemia Patient was on Tresiba insulin Will monitor Accu-Cheks every 6 hours Will hold insulin for now Hypokalemia Will replace electrolytes Monitor closely on telemetry ESRD Monitor renal parameters Electrolytes monitor and replace accordingly History of CVA and cardiac arrest recently Monitor closely under telemetry Patient has home PT Hyperlipidemia Continue statin Anemia of chronic disease Monitor H&H closely No overt bleeding at this time GI/DVT prophylaxis Advanced directive full code Discharge Plan: Home Plan to discharge in: 24 Hours - Advance Directives Does patient have a Living Will: No Does patient have a Durable POA for Healthcare: No - Code Status/Comfort Care Code Status: Full Code Time Spent Managing Pts Care (In Minutes): 48
[2023-11-21] MEDS ORDERED: POTASSIUM CL SA 10 MEQ TAB PO ONE (03:41)
[2023-11-21 05:41] VITALS: O2SAT 100
[2023-11-21 06:51] VITALS: BMI 20.2
[2023-11-21] MEDS ORDERED: D50W 25 GM/50 ML SYRINGE IV ONE (08:26)
[2023-11-21] MEDS ORDERED: D10W 125 ML IV PRN (08:34)
[2023-11-21] MEDS: DORZOLAMIDE HCL OPTH SCH (09:00)
[2023-11-21] MEDS: TIMOLOL OPTH SCH (09:00)
[2023-11-21] MEDS: JUVEN PACKET PO SCH (09:00)
[2023-11-21] MEDS: BRIMONIDINE TARTRATE OPTH SCH (09:00)
[2023-11-21] MEDS: ENOXAPARIN 30 MG/0.3 ML SQ SCH (09:27)
[2023-11-21] MEDS: ATORVASTATIN 20 MG TAB PO SCH (09:27)
[2023-11-21] MEDS: PANTOPRAZOLE 40MG TABLET PO SCH (09:28)
[2023-11-21] MEDS: carvediloL 25 MG TAB PO SCH (09:28)
[2023-11-21] MEDS: HYDRALAZINE HCL 10 MG TABLET PO SCH (09:31)
--- NOTE | 2023-11-21 09:31 | P.CNS ---
Date of Consult: 11/21/23 Reason for Consult: JAYLENE/ CKD Requesting Physician: jacqueline rivero Chief Complaint: Hypoglycemia History of Present Illness: 63 yrs old Female with past medical history of diabetes, hypertension, hypothyroidism, hyperlipidemia, CKD has been on Tresiba insulin presents with hyperglycemia Episode at home. Patient's blood sugar was measured low. Patient was drowsy and lethargic. EMS was called and found that the blood sugar being low has been given glucagon. Patient is a poor historian hence most of the history is obtained from the chart review and also talking to the ER physician. Patient also has history of hypercholesterolemia hypothyroidism hypertension. History of anemia of renal disease, bilateral foot diabetic ulcers, diabetes mellitus type 2, and history of unexplained weight loss. Patient states she injected 60 units Tresiba insulin and did not properly eat yesterday. [id number] 03:23 This 63 yrs old Black Female presents to ER via EMS with complaints of Low Blood Sugar. sp4 03:23 Patient with end-stage renal disease on dialysis, diabetes insulin Tresiba insulin sp4 presents with hypoglycemic episode at home. Patient's blood sugar has measured low. EMS have administered intramuscular glucagon. Patient has history of also hypercholesterolemia hypothyroidism hypertension. History of anemia of renal disease, bilateral foot diabetic ulcers, diabetes mellitus type 2, and history of unexplained weight loss. Patient states she injected 60 units Tresiba insulin and did not properly eat. Patient's medications include atorvastatin 20 mg daily, brimonidine timolol eyedrops, dorzolamide eyedrops, pantoprazole daily, insulin degludec 50 units subcu daily, bimatoprost or Lumigan ophthalmic drops, carvedilol twice daily, hydralazine every 6 hours, Real twice daily. Limited HPI/ ROS due to confusion this morning. She is eating her breakfast but making a mess. Allergies hydrocortisone Allergy (Verified 01/01/21 01:45) Hives Home medications list reviewed: Yes Home Medications: Atorvastatin Calcium 20 mg PO DAILY 11/15/21 Brimonidine Tartrate/Timolol [Brimonidine-Timolol 0.2%-0.5%] 1 drop LEFT EYE BID 11/15/21 Dorzolamide HCl/Pf [Dorzolamide 2% Eye Drop] 1 drop EACH EYE BID 11/15/21 Pantoprazole [Protonix Tab*] 1 tab PO DAILY 11/15/21 Bimatoprost [Lumigan Opthalmic Drops*] 1 drop EACH EYE BEDTIME 07/20/23 Carvedilol [Coreg] 1 tab PO BID 07/20/23 Hydralazine [Apresoline*] 1 tab PO Q6H 07/20/23 Real [Real*] 1 each PO BID #60 packet 07/21/23 Insulin Degludec [Tresiba Flextouch U-100] 30 unit SQ DAILY #15 ml 11/21/23 - Past Medical/Surgical History Diabetic: Yes -: DM II -: HTN -: CKD III (Dr. Monge/ [place]) -: HLD -: HypoThyroidism -: Osteoarthritis -: Glaucoma -: Left toe amputation -: L foot surgery Psychosocial/ Personal History: Unemployed, lives with boyfriend - Family History Brother Medical History: Diabetes Sister History Unknown: Yes Medical History: Diabetes - Social History Smoking Status: Unknown if ever smoked Alcohol use: No CD- Drugs: No Caffeine use: Yes Place of Residence: Home Review of Systems is unable to be obtained (confusion) Physical Examination Temp Pulse Resp BP Pulse Ox 96.8 F 78 18 102/52 L 94 11/21/23 06:03 11/21/23 06:03 11/21/23 06:03 11/21/23 06:03 11/21/23 06:03 General: In no apparent distress, Delirious HEENT: Atraumatic Neck: Supple Respiratory: Clear to auscultation bilaterally, Normal air movement Cardiovascular: No edema, Regular rate/rhythm Gastrointestinal: Soft and benign, Non-distended Musculoskeletal: No clubbing, No contractures Integumentary: No rashes, No cyanosis Neurological: Abnormal speech Laboratory Data (last 24 hrs) 11/21/23 11/21/23 11/21/23 00:51 00:40 00:40 WBC 7.50 Hgb 9.8 L Hct 30.0 L Plt Count 244 PT 12.5 INR 1.14 Sodium 136 Potassium 2.8 L BUN 25 H Creatinine 2.18 H Glucose 46 L* Magnesium 1.6 Total Bilirubin 0.3 AST 26 ALT 32 Alkaline Phosphatase 112 Imagings Data: [id number] XR Chest, 1 View CLINICAL HISTORY: The patient is 63 years old and is Female; syncope TECHNIQUE: Frontal view of the chest. COMPARISON: No relevant prior studies available. FINDINGS: LUNGS: Unremarkable. No consolidation. PLEURAL SPACE: Unremarkable. No pneumothorax. HEART: Unremarkable. No cardiomegaly. MEDIASTINUM: Unremarkable. Normal mediastinal contour. BONES/JOINTS: Unremarkable. No acute fracture. TUBES, LINES AND DEVICES: A right IJ Vas-Cath is present with the tip at the SVC/RA junction. UPPER ABDOMEN: Unremarkable as visualized. IMPRESSION: No acute cardiopulmonary process. Conclusions/Impression: Stage II JAYLENE in the setting of hypovolemia/ hypotension CKD III with Proteinuria -No NSAIDs -Start IVF Hypokalemia -Replete as ordered -Repeat BMP now HTN with CKD -Hold antihypertensives at this time; restart as indicated DM II with CKD complicated by hypoglycemia -Start IVF with D5NS Hypoalbuminemia -Continue Real Anemia in chronic illness Hx iron deficiency -Monitor H&H Hospitalist and ER notes reviewed Case discussed with Dr. Rivero Thank you kindly for the consultation
[2023-11-21] MEDS: D5 0.9 NS 1,000 ML IV SCH (10:43)
--- NOTE | 2023-11-21 10:55 | P.PN ---
Date of Service: 11/21/23 Patient seen and examined. She presented with hypoglycemia. She is on insulin therapy. She is experiencing intermittent hypoglycemia. Noted creatinine of 2.18 which may indicate JAYLENE on CKD. Plan: IV Dextrose infusion. Hypoglycemia protocol Patient is tolerating diet. Continue to monitor fingerstick glucose. Hold basal insulin. Nephrology consulted for JAYLENE.
[2023-11-21 11:31] LABS: Anion Gap 8.4 mEq/L (5.0-15.0); Phosphorus 4.4 mg/dL (2.5-4.9); Potassium 3.4 mEq/L (3.5-5.1); Uric Acid 3.8 mg/dL (2.6-6.0)
--- NOTE | 2023-11-21 13:30 | RAD REPORT ---
EXAM DESCRIPTION: XR Chest, 1 View CLINICAL HISTORY: The patient is 63 years old and is Female; syncope TECHNIQUE: Frontal view of the chest. COMPARISON: No relevant prior studies available. FINDINGS: LUNGS: Unremarkable. No consolidation. PLEURAL SPACE: Unremarkable. No pneumothorax. HEART: Unremarkable. No cardiomegaly. MEDIASTINUM: Unremarkable. Normal mediastinal contour. BONES/JOINTS: Unremarkable. No acute fracture. TUBES, LINES AND DEVICES: A right IJ Vas-Cath is present with the tip at the SVC/RA junction. UPPER ABDOMEN: Unremarkable as visualized. IMPRESSION: No acute cardiopulmonary process. Electronically signed by: Jennie Chung MD 11/21/2023 01:35 AM CDT RP Due to temporary technical issues with the PACS/Fluency reporting system, reports are being signed by the in house radiologist without review as a courtesy to ensure prompt reporting. The interpreting r adiologist is fully responsible for the content of the report.
[2023-11-21] MEDS: NEPRO SHAKE 237 ML CAN PO SCH (16:35)
--- NOTE | 2023-11-21 17:48 | P.DS ---
Admission Date: 11/21/23 Discharge Date: 11/21/23 Disposition: DC HOME/HOME HEALTH CARE Reason for Admission: Hypoglycemia - Problems (1) Type II diabetes mellitus with hypoglycemia Current Visit: Yes Status: Acute (2) End-stage renal disease on hemodialysis Current Visit: Yes Status: Acute (3) Glaucoma Current Visit: No Status: Acute (4) Hypoglycemic coma Current Visit: Yes Status: Acute (5) Acute metabolic encephalopathy Current Visit: Yes Status: Acute Brief History of Present Illness: 63 yrs old Female with past medical history of diabetes on Tresiba insulin, hypertension, hypothyroidism, hyperlipidemia, ESRD on dialysis presents with hypoglycemia rpisode at home. Patient's blood sugar was measured low. Patient was drowsy and lethargic. EMS was called and found patient has low blood sugar and was given glucagon. She reported giving herself insulin without eating. Had fingerstick glucose in the ER was 25. Hypoglycemia protocol started in the ER, patient given dextrose infusion and hospitalized for further management. Hospital Course: Patient was placed on observation on the medical floor and treated with dextrose infusion. Her altered mental status resolved and patient ate well. She had another episode of hypoglycemia but her blood sugar later stabilized and patient became persistently hyperglycemic. Patient advised to resume basal insulin starting at 30 units as compared to her usual dose of 50 units and titrate up for hyperglycemia control. Noted creatinine of 2.18. She was evaluated by nephrology. Patient is on hemodialysis twice a week. She states that she has an appointment to see an copying machine repairer regarding her glaucoma tomorrow and requested for discharge. Overall her blood sugar has stabilized and deemed stable for discharge. Vital Signs/Physical Exam: Temp Pulse Resp BP Pulse Ox 96.1 F L 86 15 149/67 H 100 11/21/23 12:00 11/21/23 12:00 11/21/23 12:00 11/21/23 12:00 11/21/23 12:00 General: Alert, In no apparent distress, Oriented x3 HEENT: Mucous membr. moist/pink Neck: JVD not distended Cardiovascular: No edema, Regular rate/rhythm, Normal S1 S2 Gastrointestinal: Normal bowel sounds, Soft and benign, Non-distended Musculoskeletal: No swelling Integumentary: No rashes, No cyanosis Neurological: Normal speech, Normal strength at 5/5 x4 extr Laboratory Data at Discharge: WBC 7.50 thou/uL (4.3-10.9) 11/21/23 00:40 Hgb 9.8 g/dL (12.0-15.0) L 11/21/23 00:40 Hct 30.0 % (36.0-45.0) L 11/21/23 00:40 Plt Count 244 thou/uL (152-406) 11/21/23 00:40 PT 12.5 SECONDS (9.5-12.5) 11/21/23 00:51 INR 1.14 11/21/23 00:51 Sodium 132 mEq/L (136-145) L 11/21/23 10:58 Potassium 3.4 mEq/L (3.5-5.1) L D 11/21/23 10:58 BUN 33 mg/dL (7-18) H 11/21/23 10:58 Creatinine 2.37 mg/dL (0.55-1.02) H 11/21/23 10:58 Glucose 124 mg/dL (74-106) H 11/21/23 10:58 Uric Acid 3.8 mg/dL (2.6-6.0) 11/21/23 10:58 Phosphorus 4.4 mg/dL (2.5-4.9) 11/21/23 10:58 Magnesium 1.6 mg/dL (1.6-2.4) 11/21/23 00:40 Total Bilirubin 0.3 mg/dL (0.2-1.0) 11/21/23 00:40 AST 26 U/L (15-37) 11/21/23 00:40 ALT 32 U/L (13-56) 11/21/23 00:40 Alkaline Phosphatase 112 U/L (45-117) 11/21/23 00:40 Home Medications: Atorvastatin Calcium 20 mg PO DAILY 11/15/21 Brimonidine Tartrate/Timolol [Brimonidine-Timolol 0.2%-0.5%] 1 drop LEFT EYE BID 11/15/21 Dorzolamide HCl/Pf [Dorzolamide 2% Eye Drop] 1 drop EACH EYE BID 11/15/21 Pantoprazole [Protonix Tab*] 1 tab PO DAILY 11/15/21 Bimatoprost [Lumigan Opthalmic Drops*] 1 drop EACH EYE BEDTIME 07/20/23 Carvedilol [Coreg] 1 tab PO BID 07/20/23 Hydralazine [Apresoline*] 1 tab PO Q6H 07/20/23 Real [Real*] 1 each PO BID #60 packet 07/21/23 Insulin Degludec [Tresiba Flextouch U-100] 30 unit SQ DAILY #15 ml 11/21/23 New Medications: Insulin Degludec [Tresiba Flextouch U-100] 30 unit SQ DAILY #15 ml Physician Discharge Instructions: Established Home Health: [facility] Home Health P:[phone] F:[phone] Diet: ADA Activity: Fall precautions Followup: DARA DUKES [Primary Care Provider] - 1 Week Time spent managing pt's care (in minutes): 28
[2023-11-21 17:59] VITALS: BP 123/58; TEMP 97.3
[2023-11-21] MEDS ORDERED: BIMATOPROST OPTH SCH (21:00)
--- NOTE | 2023-11-22 12:13 | EKG ---
Test Date: 2023-11-21 Test Time: 00:38:36 Rehab Specialist: JENNIFER MEASUREMENT RESULTS: Intervals: Rate: 72 DC: 208 QRSD: 118 QT: 470 QTc: 514 [place]: P: 71 DC: 208 QRS: 93 T: 46 INTERPRETIVE STATEMENTS: Normal sinus rhythm Left ventricular hypertrophy with QRS widening Anterior infarct, age undetermined Prolonged QT Abnormal ECG Compared to ECG 08/02/2023 15:45:47 Left ventricular hypertrophy now present Myocardial infarct finding now present Electronically Signed On 11-22-23 12:12:51 CDT by Jan Vu
== END 2023-11-21 18:33 | disposition home health service (06) ==
LOC: ER 00:22 → 4TH 03:33
PROVIDERS: ADMIT Family Medicine; ATTEND Internal Medicine
DX: E11.649 Type 2 diabetes mellitus with hypoglycemia without coma (principal); T38.3X5A Adverse effect of insulin and oral hypoglycemic [antidiabetic] drugs, initial encounter; E11.22 Type 2 diabetes mellitus with diabetic chronic kidney disease; I12.0 Hypertensive chronic kidney disease with stage 5 chronic kidney disease or end stage renal disease; N18.6 End stage renal disease; E03.9 Hypothyroidism, unspecified; E78.5 Hyperlipidemia, unspecified; E87.6 Hypokalemia; E88.09 Other disorders of plasma-protein metabolism, not elsewhere classified; D63.1 Anemia in chronic kidney disease; H40.9 Unspecified glaucoma; G93.41 Metabolic encephalopathy; R41.82 Altered mental status, unspecified; Z88.8 Allergy status to other drugs, medicaments and biological substances; Z86.73 Personal history of transient ischemic attack (TIA), and cerebral infarction without residual deficits; Z99.2 Dependence on renal dialysis
CPT/HCPCS: 93005; 85025; 80048 ×2; 36415; 86900; 83735; 86850; 82947 ×8; 84100; 85610; 86901; 80076; 84550; 84484; 83880; 71045; J1650; J7042 ×2; G0378 ×2; 96374; 99285

== ENCOUNTER 2023-12-11 07:28 | Emergency (ER) | payer OTHER ==
--- NOTE | 2023-12-11 08:37 | ER ---
Nurse's Notes [facility] Name: Nedra Luis Age: 63 yrs Sex: Female : 1960 Arrival Date: 12/11/2023 Time: 07:28 Bed 7 Private MD: Diagnosis: Hypoglycemia, resolved Presentation: 12/10 07:42 Chief complaint: Patient states: she was at dialysis when they informed her that her ap3 blood sugar was too low for her dialysis today. patient reports her blood sugar was in the 40's, and they gave her crackers. patient denies feeling weak at this time, and reports that she did not eat much dinner last night. Coronavirus screen: At this time, the client does not indicate any symptoms associated with coronavirus-19. Ebola Screen: No symptoms or risks identified at this time. Initial Sepsis Screen: Does the patient meet any 2 criteria? No. Patient's initial sepsis screen is negative. Does the patient have a suspected source of infection? No. Patient's initial sepsis screen is negative. Risk Assessment: Do you want to hurt yourself or someone else? Patient reports no desire to harm self or others. Onset of symptoms was December 11, 2023. 07:42 Method Of Arrival: Wheelchair ap3 07:42 Acuity: EDEL 3 ap3 Triage Assessment: 07:45 General: Appears in no apparent distress. Behavior is calm, cooperative, appropriate ap3 for age. Pain: Denies pain. Neuro: Level of Consciousness is awake, alert, obeys commands, Oriented to person, place, time, situation. Cardiovascular: Patient's skin is warm and dry. Dialysis shunt: in the anterior aspect of right upper chest, T, Th, Sat. Respiratory: Airway is patent Respiratory effort is even, unlabored, Respiratory pattern is regular, symmetrical. Historical: - Allergies: 07:44 Hydrocodone-Acetaminophen; ap3 07:44 Hydrocortisone; ap3 - PMHx: 07:44 diabetes mellitus; Hypercholesterolemia; Hypertensive disorder; Hypothyroidism; ap3 - PSHx: 07:44 R lumpectomy; toe amputation; ap3 - Immunization history:: Client reports receiving the 2nd dose of the Covid vaccine. - Infectious Disease History:: Denies. - Social history:: Smoking status: Patient denies any tobacco usage or history of. Screenin:46 Abuse screen: Denies threats or abuse. Nutritional screening: No deficits noted. ap3 Tuberculosis screening: No symptoms or risk factors identified. Assessment: 07:47 General: Appears in no apparent distress. Behavior is calm, cooperative. Neuro: Level iw of Consciousness is awake, alert, obeys commands, Oriented to person, place, time, situation, Moves all extremities. Full function. Cardiovascular: Patient's skin is warm and dry. Respiratory: Respiratory effort is even, unlabored, Respiratory pattern is regular, symmetrical. Derm: Skin is intact, is healthy with good turgor. 08:20 Reassessment: Patient appears in no apparent distress at this time. Patient and/or iw family updated on plan of care and expected duration. Pain level reassessed. Patient is alert, oriented x 3, equal unlabored respirations, skin warm/dry/pink. Patient states feeling better. Patient states symptoms have improved. Vital Signs: 07:42 BP 161 / 81; Pulse 80; Resp 16; Temp 97.7; Pulse Ox 98% on R/A; Weight 72.57 kg (M); ap3 08:47 BP 148 / 68; Pulse 74; Resp 16; Pulse Ox 100% on R/A; iw ED Course: 07:30 Patient arrived in ED. mg5 07:31 Jose Antonio Griffin MD is Attending Physician. sp3 07:35 Kala Knight RN is Primary Nurse. iw 07:44 Triage completed. ap3 08:47 Patient has correct armband on for positive identification. Provided Education on: . iw 08:48 No provider procedures requiring assistance completed. Patient did not have IV access iw during this emergency room visit. Administered Medications: No medications were administered Medication: 07:48 VIS not applicable for this client. iw Outcome: 08:36 Discharge ordered by . sp3 08:48 Discharged to home via wheelchair, with family, iw 08:48 Discharge instructions given to patient, family, Instructed on 08:50 Patient left the ED. iw Signatures: Kala Knight RN RN iw Prokisch, Amanda, RN RN ap3 Jose Antonio Griffin MD MD sp3 Jamal Brit mg5
--- NOTE | 2023-12-11 08:37 | EDPHYS ---
Physician Documentation [facility] Name: Nedra Luis Age: 63 yrs Sex: Female : 1960 Arrival Date: 12/11/2023 Time: 07:28 Bed 7 Private MD: ED Physician Jose Antonio Griffin HPI: 12/10 08:33 This 63 yrs old Black Female presents to ER via Wheelchair with complaints of Low Blood sp3 Sugar. 08:33 63-year-old female with history of diabetes, hyperlipidemia, hypertension, ESRD sp3 presents to the ED with chief complaint low blood sugar reading 42 at home. Patient states that she had last p.o. intake yesterday for dinner due to potential bad [place] food. She does not take insulin on days she has hemodialysis. She states that they will not do her dialysis unless her sugar is higher. She ate crackers at home prior to arrival. She denies any other symptoms including headache, fever, vomiting, diarrhea, abdominal pain, back pain, syncope, near syncope or any other signs or symptoms on ROS at this time.. Historical: - Allergies: 07:44 Hydrocodone-Acetaminophen; ap3 07:44 Hydrocortisone; ap3 - PMHx: 07:44 diabetes mellitus; Hypercholesterolemia; Hypertensive disorder; Hypothyroidism; ap3 - PSHx: 07:44 R lumpectomy; toe amputation; ap3 - Immunization history:: Client reports receiving the 2nd dose of the Covid vaccine. - Infectious Disease History:: Denies. - Social history:: Smoking status: Patient denies any tobacco usage or history of. ROS: 08:34 Constitutional: Negative for fever, chills, and weight loss, Eyes: Negative for injury, sp3 pain, redness, and discharge, ENT: Negative for injury, pain, and discharge, Neck: Negative for injury, pain, and swelling, Cardiovascular: Negative for chest pain, palpitations, and edema, Respiratory: Negative for shortness of breath, cough, wheezing, and pleuritic chest pain, Abdomen/GI: Negative for abdominal pain, nausea, vomiting, diarrhea, and constipation, Back: Negative for injury and pain, MS/Extremity: Negative for injury and deformity, Skin: Negative for injury, rash, and discoloration, Neuro: Negative for headache, weakness, numbness, tingling, and seizure, Allergy/Immunology: Negative for hives, rash, and allergies, Hematologic/Lymphatic: Negative for swollen nodes, abnormal bleeding, and unusual bruising, 08:34 All other systems are negative, Exam: 08:34 Constitutional: This is a well developed, well nourished patient who is awake, alert, sp3 and in no acute distress. Head/Face: Normocephalic, atraumatic. Eyes: Pupils equal round and reactive to light, extra-ocular motions intact. Lids and lashes normal. Conjunctiva and sclera are non-icteric and not injected. Cornea within normal limits. Periorbital areas with no swelling, redness, or edema. Neck: Trachea midline, no thyromegaly or masses palpated, and no cervical lymphadenopathy. Supple, full range of motion without nuchal rigidity, or vertebral point tenderness. No Meningismus. Chest/axilla: Normal chest wall appearance and motion. Nontender with no deformity. No lesions are appreciated. Cardiovascular: Regular rate and rhythm with a normal S1 and S2. No gallops, murmurs, or rubs. Normal PMI, no JVD. No pulse deficits. Respiratory: Lungs have equal breath sounds bilaterally, clear to auscultation and percussion. No rales, rhonchi or wheezes noted. No increased work of breathing, no retractions or nasal flaring. Abdomen/GI: Soft, non-tender, with normal bowel sounds. No distension or tympany. No guarding or rebound. No evidence of tenderness throughout. Back: No spinal tenderness. No costovertebral tenderness. Full range of motion. Skin: Warm, dry with normal turgor. Normal color with no rashes, no lesions, and no evidence of cellulitis. MS/ Extremity: Pulses equal, no cyanosis. Neurovascular intact. Full, normal range of motion. Neuro: Awake and alert, GCS 15, oriented to person, place, time, and situation. Cranial nerves II-XII grossly intact. Motor strength 5/5 in all extremities. Sensory grossly intact. Cerebellar exam normal. Normal gait. Psych: Awake, alert, with orientation to person, place and time. Behavior, mood, and affect are within normal limits. Vital Signs: 07:42 BP 161 / 81; Pulse 80; Resp 16; Temp 97.7; Pulse Ox 98% on R/A; Weight 72.57 kg (M); ap3 08:47 BP 148 / 68; Pulse 74; Resp 16; Pulse Ox 100% on R/A; iw MDM: 07:31 Patient medically screened. sp3 08:35 Data reviewed: vital signs, nurses notes, old medical records, lab test result(s). ED sp3 course: 63-year-old female with hypoglycemia reading 42 at home. Initial reading here is 71. We have given her p.o. intake further and her blood sugar is now 110. We will discharge her to her reschedule dialysis appointment for later this morning. No further workup indicated in the ED. Clinically have ruled out any concerning infection, acute coronary syndrome, other cause for hypoglycemia or any other critical process at this time.. 12/10 07:50 Order name: Glucose, Ancillary Testing; Complete Time: 07:56 EDMS 12/10 08:29 Order name: Glucose, Ancillary Testing; Complete Time: 08:32 EDMS 12/10 07:42 Order name: Accucheck: 30 mins after PO meal; Complete Time: 08:18 sp3 12/10 07:42 Order name: PO challenge; Complete Time: 08:18 sp3 12/10 07:42 Order name: Monitor; Complete Time: 07:46 sp3 Administered Medications: No medications were administered Disposition Summary: 12/11/23 08:36 Discharge Ordered Notes: Location: Home sp3 Condition: Stable sp3 Diagnosis - Hypoglycemia, resolved sp3 Followup: sp3 - With: Private Physician - When: Upon discharge from the Emergency Department - Reason: Continuance of care Discharge Instructions: - Discharge Summary Sheet sp3 - Hypoglycemia sp3 Forms: - Medication Reconciliation Form sp3 - Antibiotic Education sp3 - Prescription Opioid Use sp3 - Patient Portal Instructions sp3 - Leadership Thank You Letter sp3 Signatures: Chiara Crane RN RN ap3 Jose Antonio Griffin MD MD sp3
[2023-12-11 09:17] VITALS: BP 148/68; TEMP 97.7; O2SAT 100
== END 2023-12-11 08:50 | disposition home or self-care (01) ==
LOC: ER 07:28
DX: E11.649 Type 2 diabetes mellitus with hypoglycemia without coma (principal); Z88.5 Allergy status to narcotic agent; Z88.8 Allergy status to other drugs, medicaments and biological substances
CPT/HCPCS: 82947

== ENCOUNTER 2024-04-04 08:27 | Emergency (ER) | payer OTHER ==
--- NOTE | 2024-04-04 11:51 | ER ---
Nurse's Notes [facility] Name: Nedra Luis Age: 64 yrs Sex: Female : 1960 Arrival Date: 04/04/2024 Time: 08:27 Bed 5 Private MD: Diagnosis: Colostomy care Presentation: 04/04 08:29 Chief complaint: EMS states: "toned out for needing colostomy bag changed. Pt bag fell mb9 off and needs replacement.". Coronavirus screen: Vaccine status: Patient reports being unvaccinated. Ebola Screen: No symptoms or risks identified at this time. Initial Sepsis Screen: Does the patient meet any 2 criteria? No. Patient's initial sepsis screen is negative. Does the patient have a suspected source of infection? No. Patient's initial sepsis screen is negative. Risk Assessment: Do you want to hurt yourself or someone else? Patient reports no desire to harm self or others. Onset of symptoms was April 04, 2024. 08:29 Acuity: EDEL 4 mb9 08:29 Method Of Arrival: EMS: [facility] mb9 Triage Assessment: 08:32 General: Appears in no apparent distress. Behavior is calm, cooperative. General: mb9 Smells of feces. Pain: Denies pain. EENT: No signs and/or symptoms were reported regarding the EENT system. Reports blind. Neuro: Frazier Agitation-Sedation Scale (RASS): 0 - Alert and Calm Level of Consciousness is awake, alert, obeys commands, Oriented to person, place, time, situation, Appropriate for age. Cardiovascular: Patient's skin is warm and dry. Respiratory: Airway is patent Respiratory effort is even, unlabored, Respiratory pattern is regular, symmetrical. GI: Colostomy site Ostomy appliance is not intact. : No signs and/or symptoms were reported regarding the genitourinary system. Derm: Skin is pink, warm \\T\\ dry. Musculoskeletal: Range of motion: intact in all extremities. Historical: - Allergies: 08:30 Hydrocodone-Acetaminophen; mb9 08:30 Hydrocortisone; mb9 - Home Meds: 08:30 levothyroxine 75 mcg tablet [Active]; hydralazine 10 mg Oral tablet [Active]; mb9 gabapentin 300 mg Oral capsule [Active]; carvedilol 25 mg Oral tablet [Active]; atorvastatin 20 mg Oral tablet [Active]; - PMHx: 08:30 diabetes mellitus; Hypertensive disorder; Hypercholesterolemia; Hypothyroidism; mb9 Diaylsis; 08:33 Blind; mb9 - PSHx: 08:30 R lumpectomy; toe amputation; Colostomy; Diaylsis port; mb9 - Immunization history:: Adult Immunizations up to date. - Infectious Disease History:: Denies. - Social history:: Smoking status: Patient denies any tobacco usage or history of. Screenin:33 [facility] ED Fall Risk Assessment (Adult) History of falling in the last 3 months, mb9 including since admission No falls in past 3 months (0 pts) Confusion or Disorientation No (0 pts) Intoxicated or Sedated No (0 pts) Impaired Gait No (0 pts) Mobility Assist Device Used No (0 pt) Altered Elimination No (0 pt) Score/Fall Risk Level 0 - 2 = Low Risk Oriented to surroundings, Maintained a safe environment, Educated pt \\T\\ family on fall prevention, incl call for assistance when getting out of bed. Abuse screen: Denies threats or abuse. Nutritional screening: No deficits noted. Tuberculosis screening: No symptoms or risk factors identified. Assessment: 08:52 Reassessment: see triage assessment. mb9 10:45 Reassessment: No changes from previously documented assessment. Patient and/or family mb9 updated on plan of care and expected duration. Pain level reassessed. Patient is alert, oriented x 3, equal unlabored respirations, skin warm/dry/pink. 11:00 Reassessment: Social service at bedside. mb9 Vital Signs: 08:29 BP 159 / 82; Pulse 84; Resp 18; Pulse Ox 100% on R/A; Weight 83.91 kg; Height 5 ft. 11 mb9 in. ; Pain 0/10; 09:46 BP 148 / 79; Pulse 83; Resp 16; Pulse Ox 99% ; ko1 08:29 Body Mass Index 25.80 (83.91 kg, 180.34 cm) mb9 08:29 Pain Scale: Adult mb9 ED Course: 08:28 Patient arrived in ED. mb9 08:29 Kenia Coreas RN is Primary Nurse. mb9 08:30 Triage completed. mb9 08:31 Lindsay Auguste MD is Attending Physician. sd2 08:32 Arm band placed on. mb9 08:33 Bed in low position. Call light in reach. Side rails up X 1. Provided Education on: mb9 press call light if needing anything. Client placed on continuous cardiac and pulse oximetry monitoring. NIBP monitoring applied. 09:19 No provider procedures requiring assistance completed. mb9 09:20 Bath given. Cleaned of incontinence. mb9 09:20 Colostomy appliance applied to pt. Colostomy education provided. mb9 11:41 Patient did not have IV access during this emergency room visit. mb9 Administered Medications: No medications were administered Medication: 08:34 VIS not applicable for this client. mb9 Outcome: 11:50 Discharge ordered by . sd2 11:57 Discharged to home via wheelchair, with family, mb9 11:57 Condition: stable 11:57 Discharge instructions given to patient, family, Instructed on discharge instructions, follow up and referral plans. Demonstrated understanding of instructions, follow-up care, 11:57 Patient left the ED. mb9 Signatures: Lindsay Auguste MD MD sd2 Marta Clemens RN RN ko1 Kenia Coreas RN RN mb9 Corrections: (The following items were deleted from the chart) 09:04 08:32 EENT: No signs and/or symptoms were reported regarding the EENT system. mb9 ko1
--- NOTE | 2024-04-04 11:51 | EDPHYS ---
Physician Documentation [facility] Name: Nedra Luis Age: 64 yrs Sex: Female : 1960 Arrival Date: 04/04/2024 Time: 08:27 Bed 5 Private MD: ED Physician Lindsay Auguste HPI: 04/04 11:46 This 64 yrs old Black Female presents to ER via EMS with complaints of Need colostomy sd2 bag. 11:46 64 yo F brought in by EMS with need for colostomy bag and ostomy care. Ostomy placed in sd2 October of this year. Reports she initially had Home Health but they no longer come and her boyfriend and daughter have been helping her but her daughter just had a baby and her boyfriend is in the hospital. She reports the ostomy bag fell off early this morning and she was unable to put it back on as she is blind. . Historical: - Allergies: 08:30 Hydrocodone-Acetaminophen; mb9 08:30 Hydrocortisone; mb9 - Home Meds: 08:30 levothyroxine 75 mcg tablet [Active]; hydralazine 10 mg Oral tablet [Active]; mb9 gabapentin 300 mg Oral capsule [Active]; carvedilol 25 mg Oral tablet [Active]; atorvastatin 20 mg Oral tablet [Active]; - PMHx: 08:30 diabetes mellitus; Hypertensive disorder; Hypercholesterolemia; Hypothyroidism; mb9 Diaylsis; 08:33 Blind; mb9 - PSHx: 08:30 R lumpectomy; toe amputation; Colostomy; Diaylsis port; mb9 - Immunization history:: Adult Immunizations up to date. - Infectious Disease History:: Denies. - Social history:: Smoking status: Patient denies any tobacco usage or history of. ROS: 11:46 Constitutional: Negative for fever, chills, and weight loss, Eyes: Negative for injury, sd2 pain, redness, and discharge, Cardiovascular: Negative for chest pain, palpitations, and edema, Respiratory: Negative for shortness of breath, cough, wheezing. Abdomen/GI: Negative for abdominal pain, nausea, vomiting, diarrhea. MS/Extremity: Negative for injury and deformity, Skin: Negative for injury, rash, and discoloration, Neuro: Negative for headache, numbness and tingling. Exam: 11:46 Constitutional: This is a well developed, well nourished patient who is awake, alert, sd2 and in no acute distress. Head/Face: Normocephalic, atraumatic. Chest/axilla: Normal chest wall appearance and motion. Nontender with no deformity. Cardiovascular: Regular rate and rhythm with a normal S1 and S2. No gallops, murmurs, or rubs. 2+ distal pulses. Respiratory: Lungs have equal breath sounds bilaterally, clear to auscultation and percussion. No rales, rhonchi or wheezes noted. No increased work of breathing, no retractions or nasal flaring. Abdomen/GI: Soft, non-tender, with normal bowel sounds. No guarding or rebound. No evidence of tenderness throughout. Ostomy with noted stool output to the ostomy site and smeared across her abdomen due to no bag on the site at time of evaluation. Skin: Warm, dry with normal turgor. Normal color with no rashes, no lesions, and no evidence of cellulitis. MS/ Extremity: Pulses equal, no cyanosis. Neurovascular intact. Full, normal range of motion. Psych: Awake, alert, with orientation to person, place and time. Behavior, mood, and affect are within normal limits. Vital Signs: 08:29 BP 159 / 82; Pulse 84; Resp 18; Pulse Ox 100% on R/A; Weight 83.91 kg; Height 5 ft. 11 mb9 in. ; Pain 0/10; 09:46 BP 148 / 79; Pulse 83; Resp 16; Pulse Ox 99% ; ko1 08:29 Body Mass Index 25.80 (83.91 kg, 180.34 cm) mb9 08:29 Pain Scale: Adult mb9 MDM: 08:55 Medical Screening Exam initiated sd2 11:46 Differential Diagnosis elder abuse, ostomy care, wound infection among others. Data sd2 reviewed: vital signs, nurses notes, EMS record. Historians other than the Patient: EMS: provides initial report. Care significantly affected by the following chronic conditions: Diabetes, Hypertension. Counseling: I had a detailed discussion with the patient and/or guardian regarding the historical points, exam findings, and any diagnostic results supporting the discharge/admit diagnosis, the need for outpatient follow up. ED course: SW consulted who was able to ensure Home Health will return to her home to help her again and everything has been set up. New ostomy care performed in hospital. Pt stable and safe for discharge home at this time. . 04/04 11:50 Order name: Social Service Consult EDMS Administered Medications: No medications were administered Disposition Summary: 04/04/24 11:50 Discharge Ordered Problem: new sd2 Symptoms: are resolved sd2 Condition: Stable sd2 Diagnosis - Colostomy care sd2 Followup: sd2 - With: Private Physician - When: As needed - Reason: Discharge Instructions: - Discharge Summary Sheet sd2 - Colostomy Home Guide, Adult sd2 Forms: - Medication Reconciliation Form sd2 - Antibiotic Education sd2 - Prescription Opioid Use sd2 - Patient Portal Instructions sd2 - Leadership Thank You Letter sd2 Signatures: Dispatcher [employer] Lindsay Salas MD MD sd2 Kenia Coreas RN RN mb9 Corrections: (The following items were deleted from the chart) 11:49 09:45 Social Service Consult ordered. [employer] [facility]
[2024-04-04 21:06] VITALS: BP 148/79; O2SAT 99
== END 2024-04-04 11:57 | disposition home or self-care (01) ==
LOC: ER 08:27
DX: Z43.3 Encounter for attention to colostomy (principal)
CPT/HCPCS: 99284

== ENCOUNTER 2024-07-09 21:12 | Inpatient (IN) | payer OTHER ==
[2024-07-09 21:58] LABS: Absolute Basophils 0.1 K/uL (0-0.5); Absolute Lymphocytes (CBC) 1.1 K/uL (0.7-4.9); Absolute Monocytes 0.3 K/uL (0.1-1.3); Absolute Neutrophil 9.5 K/uL (1.8-8.0); Eosinophils % 0.4 % (0-4.4); Hemoglobin 13.4 g/dL (12.0-15.0); Lymphocytes % 9.9 % (15.3-44.8); MCH 31.7 pg (27.0-35.0); MCHC 32.7 g/dL (32.0-36.0); MCV 96.8 fL (80-100); MPV 8.8 fL (7.6-11.3); Monocytes % 2.4 % (3.3-12.3); Neutrophils % 86.3 % (41.7-73.7); Nucleated Red Blood Cells % 0.1 % (0-0); Platelets 201 thou/uL (152-406); RBC Red Blood Cell Count 4.23 M/uL (3.86-4.86)
[2024-07-09 22:05] LABS: PT Prothrombin Time 11.2 SECONDS (9.4-12.5); Protime INR 1.07
[2024-07-09] MEDS ORDERED: ONDANSETRON 4 MG/2 ML VIAL ONE (22:12)
[2024-07-09] MEDS ORDERED: NA CHLORIDE 0.9% 1,000 ML ONE (22:12)
[2024-07-09 22:19] LABS: ALT/SGPT 69 U/L (13-56); AST/SGOT 77 U/L (15-37); Albumin/Globulin Ratio 0.7 (1.1-1.8); Alkaline Phosphatase 97 U/L (45-117); Anion Gap 12.3 mEq/L (5.0-15.0); BUN Blood Urea Nitrogen 52 mg/dL (7-18); Bicarbonate 22 mEq/L (21-32); Bilirubin Total 0.4 mg/dL (0.2-1.0); Globulin 4.3 g/dL (2.3-3.5); Glomerular Filtration Rate 11 ml/min (=/>90); Glucose Level 90 mg/dL (74-106); Lipase 27 U/L (13-75); Magnesium 2.2 mg/dL (1.6-2.4); NT PRO-BNP 562 pg/mL (<125); Potassium 4.3 mEq/L (3.5-5.1); Protein, Total 7.3 g/dL (6.4-8.2); Sodium Level 137 mEq/L (136-145)
[2024-07-09 22:21] LABS: Bilirubin Direct < 0.2 mg/dL (0-0.2); Bilirubin Indirect, Calculated 0.2 mg/dL (0.2-0.8)
[2024-07-09 22:22] LABS: Troponin High Sensitivity 91.1 pg/mL (<58.9)
[2024-07-09 22:34] LABS: Band Neutrophils 7 % (0-1); Blood Morphology Comment NOT SEEN (NOT SEEN); Differential Total Cells Count 100; Lymphocytes 11 % (15-42); Monocytes 2 % (0-10); Platelet Estimate ADEQ; Segmented Neutrophils 80 % (40-80)
--- NOTE | 2024-07-09 22:42 | RAD REPORT ---
EXAMINATION: ONE VIEW CHEST XR CLINICAL INDICATION: Female, 64 years old.,COUGH TECHNIQUE: Frontal chest projection is submitted. Examination is limited by patient positioning and t echnique. COMPARISON: 11/21/2023 FINDINGS: The lungs are grossly clear although suboptimal inspiratory effort somewhat limits evaluation. Right IJ dialysis catheter in place. No pneumothorax or sizable effusion. The heart is normal in size. Mediastinal contours are unremarkable. IMPRESSION: No acute intrathoracic abnormalities.
--- NOTE | 2024-07-09 22:52 | RAD REPORT ---
EXAMINATION: CT Abdomen Pelvis Wo Contrast CLINICAL INDICATION: Female, 64 years old. ABDOMINAL DISTENTION TECHNIQUE: CT abdomen and pelvis was performed, without IV contrast, as per department protocol. Axia l, sagittal and coronal reconstructions were obtained. One or more of the following dose reduction techniques were used: Automated exposure control, adjustment of the mA and kV according to the patien t size, and iterative reconstruction. Unless otherwise specified, incidental findings do not require dedicated imaging follow-up. COMPARISON: 07/19/2023. FINDINGS: The lack of intravenous contrast limits the sensitivity of this exam for evaluation of solid visceral organs, vascular structures, and retroperitoneum. LOWER CHEST: Bibasilar patchy groundglass and tree-in-bud opacities. LIVER: Normal in size and contour. No focal lesion. BILIARY SYSTEM: No suspicious abnormalities. SPLEEN: Normal size. No focal lesion. PANCREAS: No mass, ductal dilation, or angela-pancreatic fluid. ADRENALS: Normal; no mass. KIDNEYS AND URETERS: Normal size and contour. No hydronephrosis. URINARY BLADDER: Normal contour. GASTROINTESTINAL TRACT: Sequelae of left lower quadrant colostomy and mucous fistula creation. Pronou nced fairly diffuse wall thickening of the stomach wall, somewhat sparing the anterior wall near the fundus. No evidence of bowel obstruction, free air or abscess. Trace fluid along the right parac olic gutter. APPENDIX: Normal appendix. LYMPH NODES: No lymphadenopathy. MUSCULOSKELETAL: No acute or suspicious osseous abnormality. 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 Calcified uterine fibroid. IMPRESSION: Marked fairly diffuse wall thickening of the stomach, suggesting marked gastritis. Trace nonspecific fluid along the right paracolic gutter. Diffuse body wall edema, correlate with patient's fluid status. Bibasilar patchy groundglass and tree-in-bud opacities in the included lower lungs,, suggesting an ac waylon infectious or inflammatory process.
--- NOTE | 2024-07-09 23:33 | EDPHYS ---
Physician Documentation [facility] Name: Nedra Luis Age: 64 yrs Sex: Female : 1960 Arrival Date: 07/09/2024 Time: 21:12 Bed 24 Private MD: AXEL Physician Tommy Kidd HPI: 07/09 23:23 This 64 yrs old Black Female presents to ER via EMS with complaints of ABDOMINAL PAIN, sindhu VOMITING, ESRD ON HD. 23:23 The patient presents with abdominal pain in the upper abdomen, in the lower abdomen. sindhu Onset: The symptoms/episode began/occurred 2 day(s) ago. The patient presents to the emergency department with nausea, vomiting, described as BROWN, NO COFFEE. Possible causes: unknown, flare up of bowel problem, irritable bowel disease. The symptoms are aggravated by nothing. The symptoms are alleviated by food . ESRD ON HD, COLOSTOMY. Associated signs and symptoms: The patient has no apparent associated signs or symptoms. The symptoms do not radiate. Historical: - Allergies: 21:20 Hydrocodone-Acetaminophen; bm8 21:20 Hydrocortisone; bm8 - Home Meds: 21:20 atorvastatin 20 mg Oral tablet [Active]; carvedilol 25 mg Oral tablet [Active]; bm8 gabapentin 300 mg Oral capsule [Active]; hydralazine 10 mg Oral tablet [Active]; levothyroxine 75 mcg tablet [Active]; - PMHx: 21:20 BLIND; diabetes mellitus; Diaylsis; Hypercholesterolemia; Hypertensive disorder; bm8 Hypothyroidism; - PSHx: 21:20 Colostomy; Diaylsis port; Diaylsis port; R lumpectomy; toe amputation; bm8 - Immunization history:: Adult Immunizations up to date. - Infectious Disease History:: Denies. - Social history:: Smoking status: Patient denies any tobacco usage or history of. - Family history:: not pertinent. ROS: 23:23 Constitutional: Negative for fever, chills, and weight loss, Eyes: Negative for injury, sindhu pain, redness, and discharge, ENT: Negative for injury, pain, and discharge, Neck: Negative for injury, pain, and swelling, Cardiovascular: Negative for chest pain, palpitations, and edema, Respiratory: Negative for shortness of breath, cough, wheezing, and pleuritic chest pain, Back: Negative for injury and pain, : Negative for injury, bleeding, discharge, and swelling, MS/Extremity: Negative for injury and deformity, Skin: Negative for injury, rash, and discoloration, Neuro: Negative for headache, weakness, numbness, tingling, and seizure, Psych: Negative for depression, anxiety, suicide ideation, homicidal ideation, and hallucinations, Allergy/Immunology: Negative for hives, rash, and allergies, Endocrine: Negative for neck swelling, polydipsia, polyuria, polyphagia, and marked weight changes, 23:23 Abdomen/GI: Positive for abdominal pain, nausea and vomiting, abdominal cramps, abdominal distension, Exam: 23:23 Constitutional: This is a well developed, well nourished patient who is awake, alert, sindhu and in no acute distress. Head/Face: Normocephalic, atraumatic. Eyes: Pupils equal round and reactive to light, extra-ocular motions intact. Lids and lashes normal. Conjunctiva and sclera are non-icteric and not injected. Cornea within normal limits. Periorbital areas with no swelling, redness, or edema. ENT: Nares patent. No nasal discharge, no septal abnormalities noted. Tympanic membranes are normal and external auditory canals are clear. Oropharynx with no redness, swelling, or masses, exudates, or evidence of obstruction, uvula midline. Mucous membranes moist. Neck: Trachea midline, no thyromegaly or masses palpated, and no cervical lymphadenopathy. Supple, full range of motion without nuchal rigidity, or vertebral point tenderness. No Meningismus. Chest/axilla: Normal chest wall appearance and motion. Nontender with no deformity. No lesions are appreciated. Cardiovascular: Regular rate and rhythm with a normal S1 and S2. No gallops, murmurs, or rubs. Normal PMI, no JVD. No pulse deficits. Respiratory: Lungs have equal breath sounds bilaterally, clear to auscultation and percussion. No rales, rhonchi or wheezes noted. No increased work of breathing, no retractions or nasal flaring. Back: No spinal tenderness. No costovertebral tenderness. Full range of motion. Female : Normal external genitalia. Skin: Warm, dry with normal turgor. Normal color with no rashes, no lesions, and no evidence of cellulitis. MS/ Extremity: Pulses equal, no cyanosis. Neurovascular intact. Full, normal range of motion., bilateral aka Neuro: Awake and alert, GCS 15, oriented to person, place, time, and situation. Cranial nerves II-XII grossly intact. Motor strength 5/5 in all extremities. Sensory grossly intact. Cerebellar exam normal. Normal gait. Psych: Awake, alert, with orientation to person, place and time. Behavior, mood, and affect are within normal limits. 23:23 ECG was reviewed by the Attending Physician. 23:23 Abdomen/GI: Inspection: abdomen appears normal, Bowel sounds: normal, in all quadrants, Palpation: mild abdominal tenderness, in the right upper quadrant and left upper quadrant, Liver: no appreciated palpable abnormalities, Hernia: not appreciated, COLOSTOMY LEFT LWER QUADRANT, Vital Signs: 21:18 BP 153 / 82; Pulse 93; Resp 18; Temp 98.2; Pulse Ox 100% ; Weight 68.04 kg; Height 5 bm8 ft. 6 in. ; Pain 06/20; 23:00 BP 139 / 74; Pulse 92; Resp 18 S; Pulse Ox 100% on R/A; ha1 07/10 00:07 BP 162 / 84; Pulse 94; Resp 18 S; Pulse Ox 100% on R/A; ha1 01:00 BP 148 / 73; Pulse 87; Resp 17 S; Pulse Ox 99% on R/A; ha1 02:00 BP 141 / 71; Pulse 89; Resp 17 S; Pulse Ox 98% on R/A; ha1 03:00 BP 158 / 84; Pulse 89; Resp 18 S; Temp 98.9; Pulse Ox 98% on R/A; ha1 07/09 21:18 Body Mass Index 24.21 (68.04 kg, 167.64 cm) [facility] 07/09 21:18 Pain Scale: Adult [facility] MDM: 07/09 21:29 Medical Screening Exam initiated sindhu 23:29 Differential Diagnosis sepsis, flu. Differential diagnosis: Nonspecific abd pain, sindhu gastritis, cholecystitis, pancreatitis, appendicitis, diverticulitis, viral gastroenteritis, gastroenteritis, bowel obstruction, cholecystitis, Cholelithiasis, diverticulitis, gastritis, gastroesophageal reflux disease, GI Bleed, Hepatitis, non-specific abd pain, pancreatitis, Peptic Ulcer Disease, Perf. Duodenal Ulcer, Perf. Gastric Ulcer, Peritonitis, Pyelonephritis, Ureterolithiasis, urinary tract infection. Data reviewed: vital signs, nurses notes, EMS record, lab test result(s), EKG, radiologic studies, CT scan, plain films. Consideration of Admission/Observation Patient was admitted/placed on observation. Escalation of care including admission/observation considered. I considered the following discharge prescriptions or medication management in the emergency department Medications were administered in the Emergency Department. See MAR. Independent interpretation of the following test(s) in the Emergency Department EKG: See my EKG interpretation above. Test considered but Not performed: MRI: NO MRCP. Care significantly affected by the following chronic conditions: Diabetes, Hypertension, Congestive Heart Failure, Chronic Kidney Disease, BLIND, DIALYSIS TUES , SAT, HYPOTHYROID. 07/09 21:30 Order name: Basic Metabolic Panel; Complete Time: 23:15 [facility] [place] 07/09 21:30 Order name: CBC with Diff; Complete Time: 23:15 [facility] 07/09 21:30 Order name: LFT's; Complete Time: 23:15 [facility] 07/09 21:30 Order name: Magnesium; Complete Time: 23:15 [facility] [place] 07/09 21:30 Order name: NT PRO-BNP; Complete Time: 23:15 [facility] [place] 07/09 21:30 Order name: PT-INR; Complete Time: 23:15 [facility] [place] 07/09 21:30 Order name: Troponin HS; Complete Time: 23:15 [facility] [place] 07/09 21:30 Order name: Lipase; Complete Time: 23:15 [facility] [place] 07/09 22:06 Order name: Manual Differential; Complete Time: 23:15 [facility] 07/09 23:19 Order name: Blood Culture Adult (2) [facility] 07/10 00:00 Order name: Troponin High Sensitivity ha1 07/10 00:22 Order name: Urinalysis w/ reflexes [facility] 07/10 00:23 Order name: CBC with Automated Diff [facility] 07/10 00:23 Order name: CBC with Automated Diff [facility] 07/10 00:23 Order name: Comprehensive Metabolic Panel [facility] 07/10 00:23 Order name: Comprehensive Metabolic Panel [facility] 07/10 00:23 Order name: Troponin High Sensitivity [facility] 07/10 00:23 Order name: Troponin High Sensitivity [facility] 07/10 00:23 Order name: Troponin High Sensitivity [facility] 07/09 21:30 Order name: XRAY Chest (1 view); Complete Time: 23:15 [facility] 07/09 21:30 Order name: CT Abd/Pelvis - Without Contrast; Complete Time: 23:15 [facility] 07/09 21:30 Order name: Cardiac monitoring; Complete Time: 22:17 [facility] 07/09 21:30 Order name: EKG - Nurse/Tech; Complete Time: 22:17 [facility] 07/09 21:30 Order name: IV Saline Lock; Complete Time: 22:03 [facility] 07/09 21:30 Order name: Labs collected and sent; Complete Time: 22:04 [facility] 07/09 21:30 Order name: O2 Per Protocol; Complete Time: 22:04 [facility] 07/09 21:30 Order name: O2 Sat Monitoring; Complete Time: 22:04 [facility] EC:23 Rate is 95 beats/min. Rhythm is regular. QRS Fouke is Normal. MT interval is normal. QRS sindhu interval is normal. QT interval is normal. No Q waves. T waves are Normal. No ST changes noted. Clinical impression: NSR w/ Non-specific ST/T Changes and No evidence of ischemia. Interpreted by me. Reviewed by me. Administered Medications: 22:17 Drug: NS 0.9% IV 500 ml 500 ml IV at 75 ml/hr once; to be given as a bolus over 30 ha1 minutes Volume: 500 ml; Route: IV; Rate: 75 ml/hr; Site: right antecubital; 07/10 04:00 Follow up: Response: No adverse reaction; IV Status: Completed infusion; IV Intake: ha1 500ml 07/09 22:17 Drug: Ondansetron IVP 4 mg IVP once; over 2 minutes Route: IVP; Site: right antecubital;ha1 07/10 02:45 Follow up: Response: No adverse reaction; Marked relief of symptoms; Nausea is decreasedha1 00:28 Drug: Pantoprazole IVP 80 mg IVP once Route: IVP; Site: right antecubital; ha1 01:00 Follow up: Response: No adverse reaction; Marked relief of symptoms ha1 00:30 Drug: fentaNYL (PF) IVP 25 mcg IVP once Route: IVP; Site: right antecubital; ha1 01:00 Follow up: Response: No adverse reaction; Marked relief of symptoms; Pain is decreased; ha1 RASS: Alert and Calm (0) 00:32 Drug: Promethazine IVP 6.25 mg IVP once Route: IVP; Site: right antecubital; ha1 01:00 Follow up: Response: No adverse reaction; Marked relief of symptoms; Nausea is decreasedha1 00:32 Drug: Promethazine IVP 6.25 mg IVP once Route: IVP; Site: right antecubital; ha1 01:00 Follow up: Response: No adverse reaction; Marked relief of symptoms ha1 00:46 Drug: levofloxacin IVPB 500 mg 100 ml IVPB once over 60 mins Volume: 100 ml; Route: jb4 IVPB; Infused Over: 60 mins; Site: right antecubital; 01:50 Follow up: Response: No adverse reaction; IV Status: Completed infusion; IV Intake: ha1 100ml 01:27 Drug: Aspirin MT Suppository 300 mg MT once Route: MT; ha1 02:00 Follow up: Response: No adverse reaction ha1 Disposition Summary: 07/09/24 23:32 Hospitalization Ordered Notes: Hospitalization Status: Inpatient Admission sindhu Provider: Rudy Slater cha Location: Telemetry/MedSurg (Inpatient) sindhu Condition: Fair sindhu Problem: new sinhdu Symptoms: have improved sindhu Bed/Room Type: Standard [facility] Room Assignment: 406(07/10/24 02:02) kl Diagnosis - Dependence on renal dialysis sindhu - Vomiting sindhu - Acute gastritis without bleeding sindhu - Bandemia sindhu - Elevated white blood cell count sindhu Forms: - Medication Reconciliation Form sindhu - SBAR form sindhu - Leadership Thank You Letter sindhu Signatures: Dispatcher [employer] EDSelena Aparicio RN RN kl Anderson, Corey, MD MD cha Bryson, James, RN RN jb4 Tasneem Stanford RN RN ha1 Michael Perry RN RN bm8 Corrections: (The following items were deleted from the chart) 07/09 21: 21:30 BASIC METABOLIC PANEL+C.LAB.BRZ ordered. EDMS EDMS 21:30 21:30 CBC+H.LAB.BRZ ordered. EDMS EDMS 21:30 21:30 HEPATIC FUNCTION+C.LAB.BRZ ordered. EDMS EDMS 21:30 21:30 MAGNESIUM+C.LAB.BRZ ordered. EDMS EDMS 21:30 21:30 PROBNP+C.LAB.BRZ ordered. EDMS EDMS 21:30 21:30 PROTIME (+INR)+COAG.LAB.BRZ ordered. EDMS EDMS 21:30 21:30 Troponin High Sensitivity+C.LAB.BRZ ordered. EDMS EDMS 21:30 LIPASE+C.LAB.BRZ ordered. EDMS EDMS 21:30 Chest Single View+RAD.RAD.BRZ ordered. EDMS EDMS 21:30 Abdomen Pelvis Wo Con+CT.RAD.BRZ ordered. EDMS EDMS 07/10 99: 00:23 Troponin High Sensitivity ordered. EDMS EDMS 02:07/09 23:32 sindhu kl
--- NOTE | 2024-07-09 23:33 | ER ---
Nurse's Notes [facility] Name: Nedra Luis Age: 64 yrs Sex: Female : 1960 Arrival Date: 07/09/2024 Time: 21:12 Bed 24 Private MD: Diagnosis: Dependence on renal dialysis;Vomiting;Acute gastritis without bleeding;Bandemia;Elevated white blood cell count Presentation: 07/09 21:18 Chief complaint: Patient states: I have not been able to keep anything down since 0200 bm8 this morning. Coronavirus screen: At this time, the client does not indicate any symptoms associated with coronavirus-19. Ebola Screen: Patient negative for fever greater than or equal to 101.5 degrees Fahrenheit, and additional compatible Ebola Virus Disease symptoms Patient denies exposure to infectious person. Patient denies travel to an Ebola-affected area in the 21 days before illness onset. No symptoms or risks identified at this time. Initial Sepsis Screen: Does the patient meet any 2 criteria? No. Patient's initial sepsis screen is negative. Does the patient have a suspected source of infection? No. Patient's initial sepsis screen is negative. Risk Assessment: Do you want to hurt yourself or someone else? Patient reports no desire to harm self or others. Onset of symptoms was July 09, 2024 at 02:00. 21:18 Method Of Arrival: EMS: [facility] bm8 21:18 Acuity: EDEL 3 bm8 Triage Assessment: 21:20 General: Appears in no apparent distress. comfortable, Behavior is calm, cooperative, bm8 appropriate for age. Pain: Complains of pain in abdomen Pain currently is 1 out of 10 on a pain scale. EENT: No deficits noted. No signs and/or symptoms were reported regarding the EENT system. Neuro: No deficits noted. Level of Consciousness is awake, alert, obeys commands, Oriented to person, place, time, situation, Appropriate for age. Cardiovascular: Denies chest pain, Capillary refill < 3 seconds in bilateral fingers Patient's skin is warm and dry. Respiratory: Airway is patent Trachea midline Respiratory effort is even, unlabored, Respiratory pattern is regular, symmetrical, Breath sounds are clear bilaterally. GI: Abdomen is flat, colostomy in place Reports upper abdominal pain, nausea, vomiting. : No signs and/or symptoms were reported regarding the genitourinary system. Derm: No signs and/or symptoms reported regarding the dermatologic system. Musculoskeletal: No signs and/or symptoms reported regarding the musculoskeletal system. Historical: - Allergies: 21:20 Hydrocodone-Acetaminophen; bm8 21:20 Hydrocortisone; bm8 - Home Meds: 21:20 atorvastatin 20 mg Oral tablet [Active]; carvedilol 25 mg Oral tablet [Active]; bm8 gabapentin 300 mg Oral capsule [Active]; hydralazine 10 mg Oral tablet [Active]; levothyroxine 75 mcg tablet [Active]; - PMHx: 21:20 BLIND; diabetes mellitus; Diaylsis; Hypercholesterolemia; Hypertensive disorder; bm8 Hypothyroidism; - PSHx: 21:20 Colostomy; Diaylsis port; Diaylsis port; R lumpectomy; toe amputation; bm8 - Immunization history:: Adult Immunizations up to date. - Infectious Disease History:: Denies. - Social history:: Smoking status: Patient denies any tobacco usage or history of. - Family history:: not pertinent. Screenin:[facility] ED Fall Risk Assessment (Adult) History of falling in the last 3 months, ha1 including since admission Yes- single mechanical fall (1 pt) Confusion or Disorientation No (0 pts) Intoxicated or Sedated No (0 pts) Impaired Gait Yes (1 pt) Mobility Assist Device Used Yes (1 pt) Altered Elimination No (0 pt) Score/Fall Risk Level 3 or more points = High Risk Oriented to surroundings, Maintained a safe environment, Educated pt \\T\\ family on fall prevention, incl call for assistance when getting out of bed, Hourly rounding (assess needs \\T\\ fall precautionary measures) done. Abuse screen: Denies threats or abuse. Denies injuries from another. Nutritional screening: No deficits noted. Tuberculosis screening: No symptoms or risk factors identified. Assessment: 23:00 Reassessment: Patient and/or family updated on plan of care and expected duration. Pain ha1 level reassessed. Patient is alert, oriented x 3, equal unlabored respirations, skin warm/dry/pink. 07/10 00:00 Reassessment: Patient and/or family updated on plan of care and expected duration. Pain ha1 level reassessed. Patient is alert, oriented x 3, equal unlabored respirations, skin warm/dry/pink. 01:00 Reassessment: Patient and/or family updated on plan of care and expected duration. Pain ha1 level reassessed. Patient is alert, oriented x 3, equal unlabored respirations, skin warm/dry/pink. Patient denies pain at this time. Patient states feeling better. Patient states symptoms have improved. 01:00 Reassessment: Urine not collected Patient states " I produce very little urine and do ha1 not feel like urinating". 02:00 Reassessment: Patient and/or family updated on plan of care and expected duration. Pain ha1 level reassessed. Patient is alert, oriented x 3, equal unlabored respirations, skin warm/dry/pink. 02:36 Reassessment: nurse requesting more time to receive patient . faxed report and received.ha1 03:30 Reassessment: Patient and/or family updated on plan of care and expected duration. Pain ha1 level reassessed. Patient is alert, oriented x 3, equal unlabored respirations, skin warm/dry/pink. Vital Signs: 07/09 21:18 BP 153 / 82; Pulse 93; Resp 18; Temp 98.2; Pulse Ox 100% ; Weight 68.04 kg; Height 5 bm8 ft. 6 in. ; Pain 1/10; 23:00 BP 139 / 74; Pulse 92; Resp 18 S; Pulse Ox 100% on R/A; ha1 07/10 00:07 BP 162 / 84; Pulse 94; Resp 18 S; Pulse Ox 100% on R/A; ha1 01:00 BP 148 / 73; Pulse 87; Resp 17 S; Pulse Ox 99% on R/A; ha1 02:00 BP 141 / 71; Pulse 89; Resp 17 S; Pulse Ox 98% on R/A; ha1 03:00 BP 158 / 84; Pulse 89; Resp 18 S; Temp 98.9; Pulse Ox 98% on R/A; ha1 07/09 21:18 Body Mass Index 24.21 (68.04 kg, 167.64 cm) 8 07/09 21:18 Pain Scale: Adult bm8 ED Course: 07/09 21:18 Patient arrived in ED. 8 21:18 Patient has correct armband on for positive identification. Placed in gown. Bed in low ha1 position. Call light in reach. Side rails up X2. 21:18 Client placed on continuous cardiac and pulse oximetry monitoring. NIBP monitoring ha1 applied. wired sweatband cutter on. 21:18 Door closed. Noise minimized. Warm blanket given. Pillow given. ha1 21:20 Triage completed. bm8 21:20 Arm band placed on right wrist. bm8 21:29 Tommy Kidd MD is Attending Physician. [facility] 21:30 Inserted saline lock: 20 gauge antecubital area, using aseptic technique. Blood ha1 collected. Flushed with 10 mL NS Accessed peripheral vein via ultrasound, utilizing dynamic ultrasound technique. 22:00 CT Abd/Pelvis - Without Contrast In Process Unspecified. EDMS 22:02 XRAY Chest (1 view) In Process Unspecified. EDMS 22:03 Tasneem Stanford, KAITY is Primary Nurse. ha1 22:03 Basic Metabolic Panel Sent. ha1 22:03 CBC with Diff Sent. ha1 22:03 LFT's Sent. ha1 22:03 Magnesium Sent. ha1 22:03 NT PRO-BNP Sent. ha1 22:03 PT-INR Sent. ha1 22:03 Troponin HS Sent. ha1 23:31 Rudy Slater MD is Hospitalizing Provider. [facility] 23:35 First set of blood cultures drawn by me. ha1 23:57 Second set of blood cultures drawn by me. ha1 07/10 00:30 Provided Education on: medication administration . ha1 03:04 No provider procedures requiring assistance completed. ha1 04:00 Patient admitted, IV remains in place. ha1 Administered Medications: 07/09 22:17 Drug: NS 0.9% IV 500 ml 500 ml IV at 75 ml/hr once; to be given as a bolus over 30 ha1 minutes Volume: 500 ml; Route: IV; Rate: 75 ml/hr; Site: right antecubital; 07/10 04:00 Follow up: Response: No adverse reaction; IV Status: Completed infusion; IV Intake: ha1 500ml 07/09 22:17 Drug: Ondansetron IVP 4 mg IVP once; over 2 minutes Route: IVP; Site: right antecubital;ha1 07/10 02:45 Follow up: Response: No adverse reaction; Marked relief of symptoms; Nausea is decreasedha1 00:28 Drug: Pantoprazole IVP 80 mg IVP once Route: IVP; Site: right antecubital; ha1 01:00 Follow up: Response: No adverse reaction; Marked relief of symptoms ha1 00:30 Drug: fentaNYL (PF) IVP 25 mcg IVP once Route: IVP; Site: right antecubital; ha1 01:00 Follow up: Response: No adverse reaction; Marked relief of symptoms; Pain is decreased; ha1 RASS: Alert and Calm (0) 00:32 Drug: Promethazine IVP 6.25 mg IVP once Route: IVP; Site: right antecubital; ha1 01:00 Follow up: Response: No adverse reaction; Marked relief of symptoms; Nausea is decreasedha1 00:32 Drug: Promethazine IVP 6.25 mg IVP once Route: IVP; Site: right antecubital; ha1 01:00 Follow up: Response: No adverse reaction; Marked relief of symptoms ha1 00:46 Drug: levofloxacin IVPB 500 mg 100 ml IVPB once over 60 mins Volume: 100 ml; Route: jb4 IVPB; Infused Over: 60 mins; Site: right antecubital; 01:50 Follow up: Response: No adverse reaction; IV Status: Completed infusion; IV Intake: ha1 100ml 01:27 Drug: Aspirin MT Suppository 300 mg MT once Route: MT; ha1 02:00 Follow up: Response: No adverse reaction ha1 Medication: 03:00 VIS not applicable for this client. ha1 Intake: 01:50 IV: 100ml; Total: 100ml. ha1 04:00 IV: 500ml; Total: 600ml. ha1 Outcome: 07/09 23:32 Decision to Hospitalize by Provider. [facility] 07/10 03:05 Condition: stable ha1 03:11 Instructed on the need for admit, ha1 04:00 Admitted to Tele accompanied by SI-BONE, via stretcher, room 406, with chart, ha1 04:00 Patient left the ED. 1 Signatures: Dispatcher [employer] EDTommy Singh MD MD cha Bryson, James RN RN jb4 Tasneem Stanford RN RN ha1 Michael Perry, RN RN bm8 Corrections: (The following items were deleted from the chart) 03:20 02:35 Reassessment: nurse requesting more time to receive patient 1 ha1 04:15 04:14 Admitted to Tele accompanied by SI-BONE, via stretcher, room 406, with chart, ha1 ha1 04:15 04:14 Patient left the ED. ha1 ha1
[2024-07-10] MEDS ORDERED: ACETAMINOPHEN 325 MG TABLET PO PRN (00:18)
--- NOTE | 2024-07-10 00:21 | P.HP ---
Certification for Inpatient Patient admitted to: Inpatient With expected LOS: >2 Midnights Practitioner: I am a practitioner with admitting privileges, knowledge of patient current condition, hospital course, and medical plan of care. Services: Services provided to patient in accordance with Admission requirements found in Title 42 Section 412.3 of the Code of Federal Regulations Patient History Date of Service: 07/10/24 Reason for admission: Abdominal Pain History of Present Illness: 64 yrs old Female with past medical history of diabetes, hypertension, hypothyroidism, hyperlipidemia, ESRD on dialysis who started having abdominal discomfort and nausea and vomiting 2 days ago and has been progressively getting worse and was brought to ER. Patient started having epigastric abdominal pain. With no radiation. Associated with nausea. And few episodes of vomiting with no coffee-ground emesis. It was brownish. Denies any melena. No fever or chills. Patient denies any chest pain or shortness of breath. No sick contacts. Patient was assessed in the ER and was admitted for further management of gastritis and pain control with control of intractable nausea and vomiting Allergies hydrocortisone Allergy (Verified 01/01/21 01:45) [facility] Home medications list reviewed: Yes Home Medications: Atorvastatin Calcium 20 mg PO DAILY 11/15/21 Brimonidine Tartrate/Timolol [Brimonidine-Timolol 0.2%-0.5%] 1 drop LEFT EYE BID 11/15/21 Dorzolamide HCl/Pf [Dorzolamide 2% Eye Drop] 1 drop EACH EYE BID 11/15/21 Pantoprazole [Protonix Tab*] 1 tab PO DAILY 11/15/21 Bimatoprost [Lumigan Opthalmic Drops*] 1 drop EACH EYE BEDTIME 07/20/23 Hydralazine [Apresoline*] 1 tab PO Q6H 07/20/23 carvediloL [Coreg] 1 tab PO BID 07/20/23 Real [Real*] 1 each PO BID #60 packet 07/21/23 Insulin Degludec [Tresiba Flextouch U-100] 30 unit SQ DAILY #15 ml 11/21/23 - Past Medical/Surgical History Diabetic: Yes Past Medical History: Reviewed- Non-Contributory -: DM II -: HTN -: CKD III (Dr. Monge/ [place]) -: HLD -: HypoThyroidism -: Osteoarthritis -: Glaucoma Past Surgical History: Reviewed- Non-Contributory -: Left toe amputation -: L foot surgery Psychosocial/ Personal History: Unemployed, lives with boyfriend - Family History Brother -: Diabetes Sister -: Diabetes - Social History Alcohol use: No CD- Drugs: No Caffeine use: Yes Review of Systems 10-point ROS is otherwise unremarkable Physical Examination - Vital Signs Temperature: 98.2 F Blood Pressure: 162/84 Pulse: 92 Respirations: 18 Pulse Ox (%): 94 - Physical Exam General: Alert, Mild distress HEENT: Atraumatic, Normocephalic Neck: Supple Respiratory: Clear to auscultation bilaterally, Normal air movement Cardiovascular: Regular rate/rhythm, Normal S1 S2 Capillary refill: <2 Seconds Gastrointestinal: W/out hepatosplenomegaly, Tenderness Musculoskeletal: No clubbing Integumentary: No rashes Neurological: Other (Alert, Awake , Nonfocal ) Lymphatics: No axilla or inguinal lymphadenopathy - Studies Laboratory Data (last 24 hrs) 07/09/24 07/09/24 07/09/24 21:51 21:51 21:51 WBC 11.00 H Hgb 13.4 Hct 41.0 Plt Count 201 PT 11.2 INR 1.07 Sodium 137 Potassium 4.3 BUN 52 H Creatinine 4.17 H Glucose 90 Magnesium 2.2 Total Bilirubin 0.4 AST 77 H ALT 69 H Alkaline Phosphatase 97 Lipase 27 Assessment and Plan - Plan Gastritis Started on PPI IV Zofran as needed Monitor volume status Abdominal pain better Leukocytosis Bandemia Will start on Zosyn Obtain cultures Will change antibiotic as per sensitivity Hypertension Antihypertensives titrated Continue home medications and titrate as needed NSTEMI possibly type II due to ESRD Will trend cardiac enzymes Will monitor telemetry Continue home medications Patient denies any chest pain Cardiology consult if troponin trending high Diabetes Insulin sliding scale Accu-Chek before every meal and at bedtime ESRD Monitor renal parameters Electrolytes monitor and replace accordingly Nephrology consulted History of CVA and cardiac arrest Monitor closely under telemetry Continue home medications and titrate as needed Hyperlipidemia Continue statin Anemia of chronic disease Monitor H&H closely No overt bleeding at this time GI/DVT prophylaxis Advanced directive full code Discharge Plan: Home Plan to discharge in: 48 Hours - Advance Directives Does patient have a Living Will: No Does patient have a Durable POA for Healthcare: No - Code Status/Comfort Care Code Status: Full Code Time Spent Managing Pts Care (In Minutes): 48
[2024-07-10] MEDS ORDERED: PANTOPRAZOLE 40 MG INJ ONE (00:24)
[2024-07-10] MEDS ORDERED: PROMETHAZINE INJ 25 MG/ML AMP ONE (00:24)
[2024-07-10] MEDS ORDERED: FENTANYL CITR 100 MCG/2 ML ONE (00:25)
[2024-07-10] MEDS ORDERED: Levofloxacin500mg IV 500 MG/100 ML BAG IV ONE (00:27)
[2024-07-10] MEDS: ASPIRIN 300 MG/SUPP ONE (01:08)
[2024-07-10] MEDS ORDERED: SODIUM CHLORIDE 0.9% 10ML INJ IV PRN (05:16)
[2024-07-10 05:41] LABS: Specific Gravity 1.018 (1.005-1.030); Sqamous Epithelial <5 /HPF (None Seen); Urine Bacteria 20-50 /HPF (<20); Urine Bilirubin NEGATIVE (Negative); Urine Blood 2+ (Negative); Urine Clarity Extremely Turbid (Clear); Urine Color Yellow (Yellow); Urine Culture Reflex Order REFLEXED; Urine Glucose NEGATIVE (Negative); Urine Ketones NEGATIVE (Negative); Urine Microscopic Reflex YN ORDER UMIC; Urine Nitrite NEGATIVE (Negative); Urine Protein 2+ (Negative); Urine Triple Phosphate Crystal Few /HPF (None Seen); Urine Urobilinogen Normal (Normal); Urine WBC >50 /HPF (<5); Urine WBC Clump Rare /HPF (None Seen)
[2024-07-10 05:53] VITALS: BMI 22.1
[2024-07-10] MEDS: carvediloL 25 MG TAB PO SCH (08:00)
[2024-07-10] MEDS ORDERED: PIPER TAZO 3.375 GM in NA CHLORIDE 0.9% 100 ML IV SCH (09:00)
[2024-07-10] MEDS: INSULN SQ SCH (09:00)
[2024-07-10] MEDS: TRESIBA U SQ SCH (09:00)
[2024-07-10] MEDS: PANTOPRAZOLE 40 MG INJ IVP SCH (09:11)
[2024-07-10] MEDS: ATORVASTATIN 20 MG TAB PO SCH (09:11)
[2024-07-10 10:57] LABS: SARS-CoV-2 Antigen CONTROL BLUE LINE VIS/BG OK; SARS-CoV-2 Antigen Rapid Res Negative (Negative)
--- NOTE | 2024-07-10 11:26 | P.CNS ---
Date of Consult: 07/10/24 Reason for Consult: ESRD Requesting Physician: HEIDY Benjamin Chief Complaint: Abdominal Pain History of Present Illness: 64 yrs old Female with past medical history of diabetes, hypertension, hypothyroidism, hyperlipidemia, ESRD on dialysis who started having abdominal discomfort and nausea and vomiting 2 days ago and has been progressively getting worse and was brought to ER. Patient started having epigastric abdominal pain. With no radiation. Associated with nausea. And few episodes of vomiting with no coffee-ground emesis. It was brownish. Denies any melena. No fever or chills. Patient denies any chest pain or shortness of breath. No sick contacts. Patient was assessed in the ER and was admitted for further management of gastritis and pain control with control of intractable nausea and vomiting [id number] 23:23 This 64 yrs old Black Female presents to ER via EMS with complaints of ABDOMINAL PAIN, sindhu VOMITING, ESRD ON HD. 23:23 The patient presents with abdominal pain in the upper abdomen, in the lower abdomen. sindhu Onset: The symptoms/episode began/occurred 2 day(s) ago. The patient presents to the emergency department with nausea, vomiting, described as BROWN, NO COFFEE. Possible causes: unknown, flare up of bowel problem, irritable bowel disease. The symptoms are aggravated by nothing. The symptoms are alleviated by food . ESRD ON HD, COLOSTOMY. Associated signs and symptoms: The patient has no apparent associated signs or symptoms. The symptoms do not radiate. Allergies hydrocortisone Allergy (Verified 01/01/21 01:45) Hives Home medications list reviewed: Yes Home Medications: Atorvastatin Calcium 20 mg PO DAILY 11/15/21 Pantoprazole [Protonix Tab*] 1 tab PO DAILY 11/15/21 Insulin Degludec [Tresiba Flextouch U-100] 30 unit SQ DAILY #15 ml 11/21/23 Fluticasone [Flonase 50MCG Nasal [place]*] 2 spray ROLANDO DAILY 07/10/24 Vitamin B Complex [Vitamin B Complex*] 1 cap PO DAILY 07/10/24 - Past Medical/Surgical History Diabetic: Yes -: DM II -: HTN -: CKD III (Dr. Monge/ [place]) -: HLD -: HypoThyroidism -: Osteoarthritis -: Glaucoma -: Left toe amputation -: L foot surgery Psychosocial/ Personal History: Unemployed, lives with boyfriend - Family History Brother Medical History: Diabetes Sister Medical History: Diabetes - Social History Smoking Status: Unknown if ever smoked Alcohol use: No CD- Drugs: No Caffeine use: Yes Place of Residence: Home Review of Systems 10-point ROS is otherwise unremarkable General: Weakness, Malaise Gastrointestinal: Nausea, Vomiting, Abdominal Pain Physical Examination Temp Pulse Resp BP Pulse Ox 98.3 F 93 H 20 124/60 93 07/10/24 08:00 07/10/24 08:00 07/10/24 08:00 07/10/24 08:00 07/10/24 08:00 General: Oriented x3, Cooperative HEENT: Atraumatic Neck: Supple Respiratory: Clear to auscultation bilaterally, Normal air movement Cardiovascular: No edema, Regular rate/rhythm Gastrointestinal: Non-distended, No guarding, Tenderness Musculoskeletal: No clubbing, No contractures Integumentary: No rashes, No cyanosis Neurological: Normal speech Laboratory Data (last 24 hrs) 07/09/24 07/09/24 07/09/24 21:51 21:51 21:51 WBC 11.00 H Hgb 13.4 Hct 41.0 Plt Count 201 PT 11.2 INR 1.07 Sodium 137 Potassium 4.3 BUN 52 H Creatinine 4.17 H Glucose 90 Magnesium 2.2 Total Bilirubin 0.4 AST 77 H ALT 69 H Alkaline Phosphatase 97 Lipase 27 Imagings Data: EXAMINATION: CT Abdomen Pelvis Wo Contrast CLINICAL INDICATION: Female, 64 years old. ABDOMINAL DISTENTION TECHNIQUE: CT abdomen and pelvis was performed, without IV contrast, as per department protocol. Axial, sagittal and coronal reconstructions were obtained. One or more of the following dose reduction techniques were used: Automated exposure control, adjustment of the mA and kV according to the patient size, and iterative reconstruction. Unless otherwise specified, incidental findings do not require dedicated imaging follow-up. COMPARISON: 07/19/2023. FINDINGS: The lack of intravenous contrast limits the sensitivity of this exam for evaluation of solid visceral organs, vascular structures, and retroperitoneum. LOWER CHEST: Bibasilar patchy groundglass and tree-in-bud opacities. LIVER: Normal in size and contour. No focal lesion. BILIARY SYSTEM: No suspicious abnormalities. SPLEEN: Normal size. No focal lesion. PANCREAS: No mass, ductal dilation, or angela-pancreatic fluid. ADRENALS: Normal; no mass. KIDNEYS AND URETERS: Normal size and contour. No hydronephrosis. URINARY BLADDER: Normal contour. GASTROINTESTINAL TRACT: Sequelae of left lower quadrant colostomy and mucous fistula creation. Pronounced fairly diffuse wall thickening of the stomach wall, somewhat sparing the anterior wall near the fundus. No evidence of bowel obstruction, free air or abscess. Trace fluid along the right paracolic gutter. APPENDIX: Normal appendix. LYMPH NODES: No lymphadenopathy. MUSCULOSKELETAL: No acute or suspicious osseous abnormality. 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 Calcified uterine fibroid. IMPRESSION: Marked fairly diffuse wall thickening of the stomach, suggesting marked gastritis. Trace nonspecific fluid along the right paracolic gutter. Diffuse body wall edema, correlate with patient's fluid status. Bibasilar patchy groundglass and tree-in-bud opacities in the included lower lungs, suggesting an acute infectious or inflammatory process. EXAMINATION: ONE VIEW CHEST XR CLINICAL INDICATION: Female, 64 years old.,COUGH TECHNIQUE: Frontal chest projection is submitted. Examination is limited by patient positioning and technique. COMPARISON: 11/21/2023 FINDINGS: The lungs are grossly clear although suboptimal inspiratory effort somewhat limits evaluation. Right IJ dialysis catheter in place. No pneumothorax or sizable effusion. The heart is normal in size. Mediastinal contours are unremarkable. IMPRESSION: No acute intrathoracic abnormalities. 1. NORMAL LEFT VENTRICULAR SYSTOLIC FUNCTION, EJECTION FRACTION 60-65%, NORMAL WALL MOTION 2. NORMAL DIASTOLIC FUNCTION 3. MILD CIRCUMFERENTIAL PERICARDIAL EFFUSION, NO SIGNS OF TAMPONADE 4. TRACE TRICUSPID REGURGITATION, INSUFFICIENT TO ESTIMATE RIGHT VENTRICULAR SYSTOLIC PRESSURE. Conclusions/Impression: ESRD on HD Sunday & Proteinuria -Acute HD prn HTN with CKD -Continue Coreg DM II with CKD -Continue Tresiba -RISS prn Transaminitis -Monitor liver enzymes Acute Cystitis with hematuria -Follow up culture Hospitalist and ER notes reviewed Thank you kindly for the consultation
[2024-07-10] MEDS: ONDANSETRON 4 MG/2 ML VIAL IV PRN (13:31)
--- NOTE | 2024-07-10 13:41 | P.PN ---
Date of Service: 07/10/24 This is 64 years old female patient with complex medical problems including ESRD on hemodialysis, status post cardiac arrest status post colostomy, type 2 diabetes, hypertension, anemia of chronic disease who presented to emergency room for evaluation of abdominal pain, nausea and vomiting, loose nonbloody stool through ostomy bag for 2 days and admitted on medical floor #1 likely viral gastroenteritis Clinically improving, continue oral diet as tolerated, supportive management with ondansetron and PPI, I will order influenza and COVID-19 test, no other viral test is available at this hospital. CT of abdominal pelvis on admission personally reviewed, unremarkable except severe anasarca #2 ESRD on hemodialysis Will resume her scheduled hemodialysis during hospitalization, patient does not need any urgent dialysis today 3. Elevated troponin related to #3 Mild elevated troponin plateaued, no clinical suspicion for acute coronary syndrome.
[2024-07-10 14:32] LABS: Hepatitis B Surface Ab - Quant 361.01 mIU/mL (<8.0); Hepatitis B surface AG Interp. Nonreactive (Nonreactive)
[2024-07-10 14:34] LABS: HBsAG Nonreactive Report Report
[2024-07-10] MEDS: HYDRALAZINE HCL 10 MG TABLET PO SCH (18:23)
[2024-07-11 06:43] LABS: Absolute Basophils 0.1 K/uL (0-0.5); Absolute Monocytes 0.5 K/uL (0.1-1.3); Basophils % 0.4 % (0-1.3); Eosinophils % 0.4 % (0-4.4); Hematocrit 37.7 % (36.0-45.0); Hemoglobin 12.2 g/dL (12.0-15.0); Lymphocytes % 7.2 % (15.3-44.8); MCH 31.4 pg (27.0-35.0); MCHC 32.3 g/dL (32.0-36.0); MCV 97.3 fL (80-100); MPV 9.6 fL (7.6-11.3); Monocytes % 3.3 % (3.3-12.3); Neutrophils % 88.7 % (41.7-73.7); Platelets 204 thou/uL (152-406); RBC Red Blood Cell Count 3.88 M/uL (3.86-4.86); Red Cell Distribution Width 14.9 % (12.1-15.2)
[2024-07-11 06:58] LABS: Albumin 2.6 g/dL (3.4-5.0); Albumin/Globulin Ratio 0.7 (1.1-1.8); Anion Gap 15.5 mEq/L (5.0-15.0); Bilirubin Total 0.4 mg/dL (0.2-1.0); Globulin 3.8 g/dL (2.3-3.5); Phosphorus 4.4 mg/dL (2.5-4.9); Potassium 5.5 mEq/L (3.5-5.1); Protein, Total 6.4 g/dL (6.4-8.2)
[2024-07-11] MEDS ORDERED: MANNITOL 25% 12.5 GM/50 ML VIAL IV PRN (07:11)
[2024-07-11] MEDS ORDERED: NA CHLORIDE 0.9% 1,000 ML IV PRN (07:11)
[2024-07-11] MEDS ORDERED: D10W 125 ML IV PRN (07:39)
[2024-07-11] MEDS ORDERED: GLUCAGON 1 MG/VIAL IM PRN (07:39)
[2024-07-11] MEDS ORDERED: ALBUMIN HUMAN 25% 50 ML IV SCH (08:00)
[2024-07-11] MEDS ORDERED: PROMETHAZINE 12.5 MG/SUPP PR PRN (09:30)
[2024-07-11] MEDS: ONDANSETRON 4 MG (ODT) TAB PO PRN (10:23)
[2024-07-11] MEDS: CIPROFLOXACIN HCL 250 MG TAB PO SCH (10:23)
[2024-07-11 10:24] LABS: Blood Morphology Comment NOT SEEN (NOT SEEN); Platelet Estimate ADEQ; White Blood Cell Scan OK (OK)
--- NOTE | 2024-07-11 11:05 | P.PN ---
(S) Pt reports still experiencing some nausea, no sig abd pain, some other general malaise, did keep down PO meds and toast this AM (O) vitals reviewed in the EMR General: NAD, chronically ill appearing HEENT: Atraumatic, not needing O2 Neck: Rt iJ CVC, exit site c/d Respiratory: Clear to auscultation bilaterally, Normal air movement Cardiovascular: No edema, Regular rate/rhythm mostly Gastrointestinal: Non-distended, No guarding, Tenderness, LLQ ostomy Musculoskeletal: Muscle mass loss, no edema Integumentary: No rashes Neurological: Normal speech, awake, alert Laboratory Data (last 24 hrs) Reviewed Conclusions/Impression: ESRD, since earlier this year due to ARF on CKD without signs of clear renal r ecovery, on iHD 2x/week but with lower GFR state now and mod azotemia will review escalating to 3x/week -HD today, orders revised Hyperkalemia -Will dialyze with low K bath Abnormal findings in urine, pyuria, GNR bacteriuria. Hx of Ecoli/Pseudomonas on other cultures -Will place on PO Cipro at lower dose HTN with CKD -Monitor closely N/V unspecified -Multifactorial, cont supportive care, monitor closely. Pt on basal insulin, monitor closely for any hypoglycemia and will defer to IM to adjust dose as indicated
[2024-07-11] MEDS: INSULIN REGULAR (HUMAN) 100 UNIT/ML SQ SCH (11:30)
--- NOTE | 2024-07-11 13:18 | P.PN ---
Subjective Date of Service: 07/11/24 Chief Complaint: Abdominal Pain Subjective: Improving She is complaining of poor oral intake and nausea but no vomiting, no watery ostomy output. Review of Systems Other: Consitutional; fever(-), chills (-), rigor(-), night sweat(-), unintentional weight loss(-), malaise (+) HEENT; diplopia (-), rhinorrhea (-), epistaxis (-), otorrhea (-), otalgia (-) Respiratory; shortness of breath (-), wheezing (-), cough (-), sputum (-), pleuritic chest pain (-) Cardiovascular; chest pain (-), peripheral edema (-), paroxysmal nocturnal dyspnea (-), orthopnea (-) Gastrointestinal; nausea (+), vomiting (-), abdominal pain (-), diarrhea (-), constipation (-), melena (-), hematochezia (-) Genitourinary; urinary frequency (-), dysuria (-), urgency (-), flank pain (-), gross hematuria (-), incontinence (-) Skin; rash (-), pruritus (-) [employer]; headache (-), paresthesia (-), numbness (-), paralysis (-) Physical Examination - Vital Signs Temperature: 97.5 F Blood Pressure: 147/67 Pulse: 86 Respirations: 16 Pulse Ox (%): 100 - Physical Exam Other Physical/Emotional Findings: - Physical Exam. General: Chronic ill- looking, in no apparent distress,. HEENT: Normocephalic, atraumatic, nonicteric sclera, nonanemic conjunctive. Neck: Supple, without JVD or goiter or thyroid mass. Respiratory: Normal breathing effort, clear to auscultation bilaterally, no crackles no wheezing or rhonchi. Cardiovascular: Regular rate and rhythm, S1, S2 normal, no murmur no gallop. Gastrointestinal: Colostomy bag in the left lower quadrant, no output normal bowel sounds, nondistended, nontender, No ascites, , No masses, no hepatosplenomegaly. Extremities : No clubbing, No peripheral edema,. Integumentary: No rashes, petechia, suspected lesions. Lymphatics: No axilla or cervical lymphadenopathy. Neurology; alert awake oriented x3, no focal neurologic deficit, normal affection . mood and behavior. Assessment And Plan - Plan This is 64 years old female patient with complex medical problems including ESRD on hemodialysis, status post cardiac arrest status post colostomy, type 2 diabetes, hypertension, anemia of chronic disease who presented to emergency room for evaluation of abdominal pain, nausea and vomiting, loose nonbloody stool through ostomy bag for 2 days and admitted on medical floor #1 likely viral gastroenteritis Clinically improving, still nausea and anorexia, continue oral diet as tolerated, supportive management with ondansetron and PPI, test negative for influenza, COVID-19 no other viral test is available at this hospital. CT of abdominal pelvis on admission personally reviewed, unremarkable except severe anasarca #2 ESRD on hemodialysis Continue scheduled hemodialysis during hospitalization, serum potassium 5.5, bicarb 19 today, no intervention needed 3. Elevated troponin related to #3 Mild elevated troponin plateaued, no clinical suspicion for acute coronary syndrome. DVT prophylaxis; heparin subcu Disposition plan to discharge home in a couple of days
[2024-07-11] MEDS: FAMOTIDINE 20 MG TAB PO SCH (21:12)
[2024-07-11] MEDS: HEPARIN 5000 UNIT/ML 1 ML VIAL SQ SCH (21:13)
[2024-07-12 09:08] VITALS: TEMP 97.9
--- NOTE | 2024-07-12 10:10 | P.DS ---
Admission Date: 07/10/24 Discharge Date: 07/12/24 Disposition: ROUTINE DISCHARGE Discharge Condition: GOOD Reason for Admission: Abdominal Pain Brief History of Present Illness: This is 64 years old female patient with complex medical problems including ESRD on hemodialysis, status post cardiac arrest status post colostomy, type 2 diabetes, hypertension, anemia of chronic disease who presented to emergency room for evaluation of abdominal pain, nausea and vomiting, loose nonbloody stool through ostomy bag for 2 days and admitted on medical floor Hospital Course: She was treated with IV fluid, ondansetron, promethazine, famotidine. Patient symptom gradually improved, she remained afebrile, her watery ostomy output resolved. She was tolerating oral diet well except mild nausea. She got dialyzed without any other events event during hospitalization. She is being discharged home. Plan is to follow-up with her PCP after discharge. #1 presumed viral gastroenteritis Clinically improving, still nausea and anorexia, continue oral diet as tolerated, supportive management with ondansetron and PPI, tested negative for influenza, COVID-19 no other viral test is available at this hospital. CT of abdominal pelvis on admission unremarkable except severe anasarca #2 ESRD on hemodialysis Received scheduled hemodialysis during hospitalization, 3. Elevated troponin related to #3 Mild elevated troponin plateaued, no clinical suspicion for acute coronary syndrome. #4 controlled hypertension Her blood pressure is reasonably controlled on home medication, carvedilol #5 asymptomatic bacteriuria Urine culture growing Morganella morganii, patient has no urinary symptom, no treatment indicated. Vital Signs/Physical Exam: Temp Pulse Resp BP Pulse Ox 97.9 F 85 15 117/49 L 100 07/12/24 08:00 07/12/24 09:13 07/12/24 08:00 07/12/24 09:13 07/12/24 08:00 Other Physical/Emotional Findings: - Physical Exam. General: Chronic ill- looking, in no apparent distress,. HEENT: Normocephalic, atraumatic, nonicteric sclera, nonanemic conjunctive. Neck: Supple, without JVD or goiter or thyroid mass. Respiratory: Normal breathing effort, clear to auscultation bilaterally, no crackles no wheezing or rhonchi. Cardiovascular: Regular rate and rhythm, S1, S2 normal, no murmur no gallop. Gastrointestinal: Colostomy bag in the left lower quadrant, no output normal bowel sounds, nondistended, nontender, No ascites, , No masses, no hepatosplenomegaly. Extremities : No clubbing, No peripheral edema,. Integumentary: No rashes, petechia, suspected lesions. Lymphatics: No axilla or cervical lymphadenopathy. Neurology; alert awake oriented x3, no focal neurologic deficit, normal affection . mood and behavior. Laboratory Data at Discharge: WBC 13.50 thou/uL (4.3-10.9) H 07/11/24 06:13 Hgb 12.2 g/dL (12.0-15.0) 07/11/24 06:13 Hct 37.7 % (36.0-45.0) 07/11/24 06:13 Plt Count 204 thou/uL (152-406) 07/11/24 06:13 PT 11.2 SECONDS (9.4-12.5) 07/09/24 21:51 INR 1.07 07/09/24 21:51 Sodium 137 mEq/L (136-145) 07/11/24 06:13 Potassium 5.5 mEq/L (3.5-5.1) H 07/11/24 06:13 BUN 66 mg/dL (7-18) H 07/11/24 06:13 Creatinine 4.84 mg/dL (0.55-1.02) H 07/11/24 06:13 Glucose 133 mg/dL (74-106) H 07/11/24 06:13 Phosphorus 4.4 mg/dL (2.5-4.9) 07/11/24 06:13 Magnesium 2.2 mg/dL (1.6-2.4) 07/09/24 21:51 Total Bilirubin 0.4 mg/dL (0.2-1.0) 07/11/24 06:13 AST 60 U/L (15-37) H 07/11/24 06:13 ALT 53 U/L (13-56) 07/11/24 06:13 Alkaline Phosphatase 91 U/L (45-117) 07/11/24 06:13 Lipase 27 U/L (13-75) 07/09/24 21:51 Home Medications: Atorvastatin Calcium 20 mg PO DAILY 11/15/21 Pantoprazole [Protonix Tab*] 1 tab PO DAILY 11/15/21 Insulin Degludec [Tresiba Flextouch U-100] 30 unit SQ DAILY #15 ml 11/21/23 Fluticasone [Flonase 50MCG Nasal [place]*] 2 spray ROLANDO DAILY 07/10/24 Vitamin B Complex [Vitamin B Complex*] 1 cap PO DAILY 07/10/24 Famotidine [Pepcid*] 20 mg PO BID tab 07/12/24 Ondansetron [Zofran (Odt)*] 4 mg PO Q6H PRN #20 tab 07/12/24 Promethazine Suppos [Phenergan -Suppos*] 12.5 mg GA Q6H PRN #20 supp 07/12/24 carvediloL [Coreg*] 25 mg PO BIDWM tab 07/12/24 New Medications: Promethazine Suppos [Phenergan -Suppos*] 12.5 mg GA Q6H PRN #20 supp PRN Reason: Nausea / Vomiting Ondansetron [Zofran (Odt)*] 4 mg PO Q6H PRN #20 tab PRN Reason: Nausea / Vomiting Followup: Mely Silva MD [Primary Care Provider] -
[2024-07-12 12:39] VITALS: O2SAT 97
[2024-07-12 13:14] VITALS: BP 129/50
[2024-07-13] MEDS ORDERED: INSULIN GLARGINE 100 UNIT/ML SQ SCH (09:00)
--- NOTE | 2024-07-15 12:37 | EKG ---
Test Date: 2024-07-09 Test Time: 22:18:39 Scalehouse Attendant: RENATA MEASUREMENT RESULTS: Intervals: Rate: 95 W[place]: 186 QRSD: 102 QT: 368 QTc: 462 [place]: P: 68 [place]: 186 QRS: 103 T: 55 INTERPRETIVE STATEMENTS: Normal sinus rhythm Rightward axis Borderline ECG Compared to ECG 11/21/2023 00:38:36 Right-axis deviation now present Left ventricular hypertrophy no longer present Myocardial infarct finding no longer present Prolonged QT interval no longer present Electronically Signed On 07-15-24 12:23:17 [employer] by Jan Vu
== END 2024-07-12 13:50 | disposition home or self-care (01) | DRG 391 ==
LOC: ER 21:12 → ERHOLD 07-10 00:18 → 4TH 07-10 03:03
PROVIDERS: ADMIT Family Medicine; ATTEND Internal Medicine
PROC: 5A1D70Z Performance of Urinary Filtration, Intermittent, Less than 6 Hours Per Day (ICD-10-PCS; principal; 2024-07-10)
DX: A08.4 Viral intestinal infection, unspecified (principal); N18.6 End stage renal disease; I12.0 Hypertensive chronic kidney disease with stage 5 chronic kidney disease or end stage renal disease; N30.01 Acute cystitis with hematuria; K29.00 Acute gastritis without bleeding; E11.22 Type 2 diabetes mellitus with diabetic chronic kidney disease; D63.1 Anemia in chronic kidney disease; E87.5 Hyperkalemia; H54.7 Unspecified visual loss; E03.9 Hypothyroidism, unspecified; D72.825 Bandemia; E78.00 Pure hypercholesterolemia, unspecified; I25.2 Old myocardial infarction; R82.71 Bacteriuria; R79.89 Other specified abnormal findings of blood chemistry; R74.01 Elevation of levels of liver transaminase levels; Z23 Encounter for immunization; Z99.2 Dependence on renal dialysis; Z93.3 Colostomy status; Z88.5 Allergy status to narcotic agent; Z79.4 Long term (current) use of insulin; Z56.0 Unemployment, unspecified; Z79.02 Long term (current) use of antithrombotics/antiplatelets; Z86.73 Personal history of transient ischemic attack (TIA), and cerebral infarction without residual deficits; Z89.422 Acquired absence of other left toe(s); Z79.890 Hormone replacement therapy; Z79.899 Other long term (current) drug therapy
CPT/HCPCS: 36415; 71045; 74176; 80048; 80053; 80076; 81001; 82947; 83690; 83735; 83880; 84100; 84484; 85025; 85610; 86706; 87040; 87077; 87086; 87088; 87186; 87340; 87804; 87811; 90935; 93005; 96361; 96365; 96375; 99285; J1644; J2405; J2470; J2550; J3010; J7030; Q0162

== ENCOUNTER 2024-10-01 11:18 | Emergency (ER) | payer OTHER ==
[2024-10-01 12:18] LABS: Absolute Lymphocytes (CBC) 0.6 K/uL (0.7-4.9); Absolute Monocytes 0.4 K/uL (0.1-1.3); Absolute Neutrophil 6.8 K/uL (1.8-8.0); Basophils % 0.5 % (0-1.3); Eosinophils % 0.6 % (0-4.4); Hematocrit 30.3 % (36.0-45.0); Lymphocytes % 7.9 % (15.3-44.8); MCHC 32.9 g/dL (32.0-36.0); MCV 100.1 fL (80-100); MPV 8.8 fL (7.6-11.3); Monocytes % 4.8 % (3.3-12.3); Neutrophils % 86.2 % (41.7-73.7); Nucleated Red Blood Cells % 0.1 % (0-0); Platelets 256 thou/uL (152-406); RBC Red Blood Cell Count 3.03 M/uL (3.86-4.86); Red Cell Distribution Width 15.1 % (12.1-15.2)
[2024-10-01 12:38] LABS: Albumin 2.4 g/dL (3.4-5.0); Albumin/Globulin Ratio 0.5 (1.1-1.8); Bilirubin Total 0.2 mg/dL (0.2-1.0); Globulin 4.5 g/dL (2.3-3.5); Protein, Total 6.9 g/dL (6.4-8.2)
--- NOTE | 2024-10-01 14:05 | ER ---
Nurse's Notes [facility] Name: Nedra Luis Age: 64 yrs Sex: Female : 1960 Arrival Date: 10/01/2024 Time: 11:18 Bed 13 Private MD: Diagnosis: Hypotension, resolved Presentation: 10/01 11:17 Chief complaint: EMS states: HYPOTENSION 88/60 BY HOME HEALTH NO COMPLAINTS. BGL 146. db DIALYSIS TUES, THURS, SAT; RIGHT CHEST DIALYSIS CATHETER. Coronavirus screen: Client denies travel out of the [place] in the last 14 days. At this time, the client does not indicate any symptoms associated with coronavirus-19. Ebola Screen: Patient negative for fever greater than or equal to 101.5 degrees Fahrenheit, and additional compatible Ebola Virus Disease symptoms Patient denies exposure to infectious person. Patient denies travel to an Ebola-affected area in the 21 days before illness onset. No symptoms or risks identified at this time. Initial Sepsis Screen: Does the patient meet any 2 criteria? No. Patient's initial sepsis screen is negative. Does the patient have a suspected source of infection? No. Patient's initial sepsis screen is negative. Risk Assessment: Do you want to hurt yourself or someone else? Patient reports no desire to harm self or others. Onset of symptoms was October 01, 2024. 11:17 Method Of Arrival: EMS: [facility] db 11:17 Acuity: EDEL 3 db 11:17 Care prior to arrival: Glucose check: 146. db Triage Assessment: 11:31 General: Appears in no apparent distress. comfortable, Behavior is calm, cooperative. db Pain: Denies pain. Neuro: No deficits noted. Cardiovascular: Capillary refill < 3 seconds Patient's skin is warm and dry. Dialysis shunt: in the anterior aspect of right upper chest. Respiratory: Airway is patent Respiratory effort is even, unlabored, Respiratory pattern is regular, symmetrical. Historical: - Allergies: 11:31 Hydrocodone-Acetaminophen; db 11:31 Hydrocortisone; db - PMHx: 11:31 BLIND; diabetes mellitus; Diaylsis; Hypercholesterolemia; Hypertensive disorder; db Hypothyroidism; - PSHx: 11:31 Diaylsis port; Colostomy; R lumpectomy; toe amputation; db - Immunization history:: Adult Immunizations unknown. - Infectious Disease History:: Denies. - Social history:: Smoking status: Patient denies any tobacco usage or history of. Screenin:[address] [facility] ED Fall Risk Assessment (Adult) History of falling in the last 3 months, db including since admission No falls in past 3 months (0 pts) Confusion or Disorientation No (0 pts) Intoxicated or Sedated No (0 pts) Impaired Gait No (0 pts) Mobility Assist Device Used No (0 pt) Altered Elimination No (0 pt) Score/Fall Risk Level 0 - 2 = Low Risk Oriented to surroundings, Maintained a safe environment. Abuse screen: Denies threats or abuse. Denies injuries from another. Nutritional screening: No deficits noted. Tuberculosis screening: No symptoms or risk factors identified. Assessment: 11:17 Reassessment: SEE TRIAGE FOR INITIAL ASSESSMENT. db 14:06 Reassessment: Patient appears in no apparent distress at this time. Patient and/or db family updated on plan of care and expected duration. Pain level reassessed. Patient is alert, oriented x 3, equal unlabored respirations, skin warm/dry/pink. PATIENT ATTEMPTED TO URINATE IN CUP. UNABLE TO URINATE DUE TO MAKES LITTLE URINE. REFUSES CATHETER. AMBULATORY BACK TO ROOM WITH ASSISTANCE. NOTIFIED DR. SMITH. General: Appears in no apparent distress. comfortable, Behavior is calm, cooperative. Neuro: Level of Consciousness is awake, alert, obeys commands, Oriented to person, place, time, situation. 14:19 Reassessment: Patient appears in no apparent distress at this time. Patient and/or db family updated on plan of care and expected duration. Pain level reassessed. Patient is alert, oriented x 3, equal unlabored respirations, skin warm/dry/pink. PATIENT PENDING RIDE FOR DC. 15:06 Reassessment: PATIENT PROVIDED COLOSTOMY BAG. PATIENT FAMILY ARRIVED FOR TRANSPORT HOME.db Vital Signs: 11:17 BP 98 / 59; Pulse 98; Resp 18; Temp 98.3; Pulse Ox 98% ; Weight 231.79 kg; Height 5 ft. db 0 in. ; 12:00 BP 106 / 61; Pulse 92; Resp 16; Pulse Ox 100% on R/A; db 13:00 BP 102 / 56; Pulse 88; Resp 16; Pulse Ox 100% on R/A; db 14:18 BP 115 / 68; Pulse 88; Resp 16; Pulse Ox 100% on R/A; db 14:45 BP 110 / 53; Pulse 91; Resp 16; Pulse Ox 100% on R/A; db 11:17 Body Mass Index 99.80 (231.79 kg, 152.4 cm) db ED Course: 11:17 Patient has correct armband on for positive identification. Bed in low position. Call db light in reach. Side rails up X2. Pulse ox on. NIBP on. Warm blanket given. Pillow given. 11:23 Patient arrived in ED. db 11:23 Jose Antonio Smith MD is Attending Physician. sp3 11:30 Triage completed. db 11:31 Arm band placed on Patient placed in an exam room. db 11:44 Sandra Morataya, RN is Primary Nurse. db 12:05 Initial lab(s) drawn, by me. Inserted saline lock: 22 gauge in right upper arm, using db aseptic technique. Blood collected. Flushed with 10 mL NS. 14:19 Provided Education on: DISCHARGE AND FOLLOWUP. db 14:19 No provider procedures requiring assistance completed. db 15:06 IV discontinued, intact, bleeding controlled, No redness/swelling at site. db Administered Medications: No medications were administered Medication: 11: VIS not applicable for this client. db Outcome: 14:04 Discharge ordered by . sp3 15:06 Discharged to home via wheelchair, with family, db 15:06 Condition: stable 15:06 Discharge instructions given to patient, family, Instructed on discharge instructions, follow up and referral plans. 15:07 Patient left the ED. db Signatures: Jose Antonio Smith MD MD sp3 Sandra Morataya, RN RN db Corrections: (The following items were deleted from the chart) 11:17 Care prior to arrival: Glucose check: 148 db db 14:20 14:19 IV discontinued, intact, bleeding controlled, No redness/swelling at site. db db 14:20 14:19 Discharged to home ambulatory, with family, db db 14:20 14:19 Condition: stable db db 14:20 14:19 Discharge instructions given to patient, family, Instructed on discharge db instructions, follow up and referral plans. db
--- NOTE | 2024-10-01 14:05 | EDPHYS ---
Physician Documentation [facility] Name: Nedra Luis Age: 64 yrs Sex: Female : 1960 Arrival Date: 10/01/2024 Time: 11:18 Bed 13 Private MD: ED Physician Jose Antonio Griffin HPI: 10/01 11:43 This 64 yrs old Black Female presents to ER via EMS with complaints of Blood Pressure sp3 Problem. 11:43 64-year-old female with history of end-stage renal disease on hemodialysis with last sp3 dialysis yesterday, hyperlipidemia, diabetes, hypertension now presents to the ED with history of low blood pressure of 63 systolic while at home with home health. Patient had no symptoms including chest pain, near syncope, neurological complaints, chest pain, shortness of breath, abdominal pain, vomiting, diarrhea, rash, bleeding or any other signs or symptoms on ROS at this time. Patient has no symptoms whatsoever. Blood pressure here is within normal limits. She also denies fever.. Historical: - Allergies: 11:31 Hydrocodone-Acetaminophen; db 11:31 Hydrocortisone; db - PMHx: 11:31 BLIND; diabetes mellitus; Diaylsis; Hypercholesterolemia; Hypertensive disorder; db Hypothyroidism; - PSHx: 11:31 Diaylsis port; Colostomy; R lumpectomy; toe amputation; db - Immunization history:: Adult Immunizations unknown. - Infectious Disease History:: Denies. - Social history:: Smoking status: Patient denies any tobacco usage or history of. ROS: 11:44 Constitutional: Negative for fever, chills, and weight loss, Eyes: Negative for injury, sp3 pain, redness, and discharge, ENT: Negative for injury, pain, and discharge, Neck: Negative for injury, pain, and swelling, Cardiovascular: Negative for chest pain, palpitations, and edema, Respiratory: Negative for shortness of breath, cough, wheezing, and pleuritic chest pain, Abdomen/GI: Negative for abdominal pain, nausea, vomiting, diarrhea, and constipation, Back: Negative for injury and pain, : Negative for injury, bleeding, discharge, and swelling, MS/Extremity: Negative for injury and deformity, Skin: Negative for injury, rash, and discoloration, Neuro: Negative for headache, weakness, numbness, tingling, and seizure, Psych: Negative for depression, anxiety, suicide ideation, homicidal ideation, and hallucinations, Allergy/Immunology: Negative for hives, rash, and allergies, Endocrine: Negative for neck swelling, polydipsia, polyuria, polyphagia, and marked weight changes, Hematologic/Lymphatic: Negative for swollen nodes, abnormal bleeding, and unusual bruising, 11:44 All other systems are negative, Exam: 11:44 Constitutional: This is a well developed, well nourished patient who is awake, alert, sp3 and in no acute distress. Head/Face: Normocephalic, atraumatic. Eyes: Pupils equal round and reactive to light, extra-ocular motions intact. Lids and lashes normal. Conjunctiva and sclera are non-icteric and not injected. Cornea within normal limits. Periorbital areas with no swelling, redness, or edema. ENT: Nares patent. No nasal discharge, no septal abnormalities noted. External auditory canals are clear. Oropharynx with no redness, swelling, or masses, exudates, or evidence of obstruction, uvula midline. Mucous membranes moist. Neck: Trachea midline, no thyromegaly or masses palpated, and no cervical lymphadenopathy. Supple, full range of motion without nuchal rigidity, or vertebral point tenderness. No Meningismus. Chest/axilla: Normal chest wall appearance and motion. Nontender with no deformity. No lesions are appreciated. Cardiovascular: Regular rate and rhythm with a normal S1 and S2. No gallops, murmurs, or rubs. Normal PMI, no JVD. No pulse deficits. Respiratory: Lungs have equal breath sounds bilaterally, clear to auscultation and percussion. No rales, rhonchi or wheezes noted. No increased work of breathing, no retractions or nasal flaring. Abdomen/GI: Soft, non-tender, with normal bowel sounds. No distension or tympany. No guarding or rebound. No evidence of tenderness throughout. Back: No spinal tenderness. No costovertebral tenderness. Full range of motion. Skin: Warm, dry with normal turgor. Normal color with no rashes, no lesions, and no evidence of cellulitis. MS/ Extremity: Pulses equal, no cyanosis. Neurovascular intact. Full, normal range of motion. Neuro: Awake and alert, GCS 15, oriented to person, place, time, and situation. Cranial nerves II-XII grossly intact. Motor strength 5/5 in all extremities. Sensory grossly intact. Cerebellar exam normal. Normal gait. Psych: Awake, alert, with orientation to person, place and time. Behavior, mood, and affect are within normal limits. Vital Signs: 11:17 BP 98 / 59; Pulse 98; Resp 18; Temp 98.3; Pulse Ox 98% ; Weight 231.79 kg; Height 5 ft. db 0 in. ; 12:00 BP 106 / 61; Pulse 92; Resp 16; Pulse Ox 100% on R/A; db 13:00 BP 102 / 56; Pulse 88; Resp 16; Pulse Ox 100% on R/A; db 14:18 BP 115 / 68; Pulse 88; Resp 16; Pulse Ox 100% on R/A; db 14:45 BP 110 / 53; Pulse 91; Resp 16; Pulse Ox 100% on R/A; db 11:17 Body Mass Index 99.80 (231.79 kg, 152.4 cm) db MDM: 11:24 Medical Screening Exam initiated sp3 11:44 Data reviewed: vital signs, nurses notes, old medical records, lab test result(s). ED sp3 course: Blood pressure currently 103/70. Patient with no complaints. Remainder vital signs are normal. Differential diagnosis includes errant blood pressure reading, transient hypotension, or other electrolyte abnormality. Will obtain CBC, CMP and lactate along with UA as patient still makes urine. If workup negative and no signs of in tissue hypoxia lactic acidosis, we will safely discharge patient back to nursing facility.. 14:03 ED course: Patient does not make a a lot of urine and is unable to do so in the ED. She sp3 now states she wants to be discharged. All labs normal including lactate. Will safely discharge patient home at this time.. 10/01 11:37 Order name: CBC with Diff sp3 10/01 11:37 Order name: CMP; Complete Time: 13:06 sp3 10/01 11:37 Order name: Lactate w/ 2H reflex if indic.; Complete Time: 13:06 sp3 10/01 14:40 Order name: Manual Differential EDMS 10/01 11:37 Order name: Cardiac monitoring; Complete Time: 15:05 sp3 10/01 11:37 Order name: IV Saline Lock - Large Bore; Complete Time: 12:09 sp3 10/01 11:37 Order name: Labs collected and sent; Complete Time: 12:09 sp3 Administered Medications: No medications were administered Disposition Summary: 10/01/24 14:04 Discharge Ordered Notes: Location: Home sp3 Condition: Stable sp3 Diagnosis - Hypotension, resolved sp3 Followup: sp3 - With: Private Physician - When: Upon discharge from the Emergency Department - Reason: Continuance of care Discharge Instructions: - Discharge Summary Sheet sp3 - Hypotension, Toan-nl-Zfhy sp3 Forms: - Medication Reconciliation Form sp3 - Antibiotic Education sp3 - Prescription Opioid Use sp3 - Patient Portal Instructions sp3 - Leadership Thank You Letter sp3 Signatures: Dispatcher [employer] EDJose Antonio Sanchez MD MD sp3 Sandra Morataya RN RN db
[2024-10-01 14:39] LABS: Blood Morphology Comment NOTED (NOT SEEN); Differential Total Cells Count 100; Eosinophils 1 % (0-3); Lymphocytes 11 % (15-42); Monocytes 5 % (0-10); Platelet Estimate ADEQ; Polychromasia SLIGHT; Segmented Neutrophils 83 % (40-80)
[2024-10-01 16:18] VITALS: O2SAT 100
[2024-10-01 16:23] VITALS: BP 110/53
== END 2024-10-01 15:07 | disposition home or self-care (01) ==
LOC: ER 11:18
DX: I95.9 Hypotension, unspecified (principal); E11.22 Type 2 diabetes mellitus with diabetic chronic kidney disease; I12.0 Hypertensive chronic kidney disease with stage 5 chronic kidney disease or end stage renal disease; N18.6 End stage renal disease; Z99.2 Dependence on renal dialysis
CPT/HCPCS: 36415; 80053; 83605; 85025; 99284